=== PATIENT | female | born 1950 | race Caucasian/White ===

== ENCOUNTER → 2016-07-27 | Outpatient (CLI) | payer OTHER ==
[~2016-07-27] MED LIST: CHOL100010 PO; DNSIS60 INJ; GABA-113 PO; LAMO200T38 PO; MULT-506 PO; SERT-234 PO; VITAMIN B12 INJ
[2016-07-27 10:59] LABS: BASO % 0.5 %; BASO ABS # 0.03 K/uL (0-0.2); COMPLETE YES; EOS % 2.1 %; HEMATOCRIT 38.6 % (37-47); IG% 0.6 %; LYMPH % 19.3 %; LYMPH ABS # 1.28 K/uL (1.2-3.4); MEAN CELL VOLUME 88.1 fL (80-100); MEAN CORPUSCULAR HEMOGLOBIN 30.1 pg (25-34); MEAN CORPUSCULAR HGB CONC 34.2 g/dl (32-36); MEAN PLATELET VOLUME 9.9 fL (7.4-10.4); MONO % 8.4 %; NEUT % 69.1 %; PLATELET COUNT 267 K/uL (130-400); RED BLOOD COUNT 4.38 M/uL (4.2-5.4); WHITE BLOOD COUNT 6.64 K/uL (4.8-10.8)
[2016-07-27 11:26] LABS: ALT/SGPT 19 U/L (12-78); BLOOD UREA NITROGEN 13 mg/dl (7-18); BUN/CREATININE RATIO 18.9 (10-20); CALCIUM 9.1 mg/dl (8.5-10.1); CARBON DIOXIDE 25 mmol/L (21-32); CHLORIDE 109 mmol/L (98-107); GLUCOSE 64 mg/dl (70-99); MAGNESIUM 2.1 mg/dl (1.8-2.4); POTASSIUM 3.6 mmol/L (3.5-5.1); SODIUM 144 mmol/L (136-145)
[2016-07-27 11:37] LABS: ALB/GLOB RATIO 1.1 (0.9-2); ALKALINE PHOSPHATASE 64 U/L (45-117); AST/SGOT 13 U/L (15-37); PHOSPHORUS 3.2 mg/dl (2.5-4.9)
[2016-08-01 02:20] LABS: ACETYLCHOLINE RECEP MODULATING 16; ACETYLCHOLINE RECEPT BLOCKING <15 % inhibit (<15); RECEPTOR BINDING AB <0.30 nmol/L (<=0.30)
== END | disposition home or self-care (01) ==
LOC: C.LAB1850 09:48
PROVIDERS: ATTEND Psychiatry & Neurology Neurology
DX: M62.81 Muscle weakness (generalized) (principal)

== ENCOUNTER → 2016-07-27 | Outpatient (CLI) | payer OTHER ==
[~2016-07-27] MED LIST changes: +GADAVIST IV PRN
--- NOTE | 2016-07-27 11:53 | DIAGNOSTIC IMAGING REPORT ---
MRI OF THE BRAIN COMBO CLINICAL HISTORY: Headache. Blurred vision. COMPARISON STUDY: No priors. TECHNIQUE: MRI of the brain was performed utilizing various T1 and T2-weighted sequences in the axial, sagittal, and coronal planes. Contrast-enhanced sequences were acquired following the administration of 8 cc of Gadavist. FINDINGS: Brain parenchyma: There is mild age-related involutional change noting scattered tiny foci of microangiopathic disease. The brain parenchyma is otherwise normal in appearance. There is no hemorrhage or mass effect. There is no restricted diffusion to suggest acute ischemia. No enhancing mass lesion is identified on the postcontrast images. Golden-white matter differentiation is preserved. No extra-axial fluid collection is seen. The cerebellar tonsils are normal in configuration. Ventricles, sulci, and cisterns: Prominent secondary to involutional change. Pituitary and sella: Unremarkable. Intracranial vasculature: Normal flow voids are maintained at the skull base. Orbits: The bony orbits are grossly intact. Orbital contents are normal in appearance noting bilateral ocular lens implants. Sinuses and mastoids: Clear. Calvarium: Unremarkable. Cervical cord: Partially visualized cervical spinal cord is normal in morphology and signal intensity. IMPRESSION: No acute intracranial abnormality. Electronically signed by: Yaniv Hutchins M.D. 07/27/2016 11:52 AM Dictated Date/Time: 07/27/2016 11:47 AM
--- NOTE | 2016-08-08 11:10 | CODING QUERY MEDICAL NECESSITY ---
SUPPORTING DIAGNOSIS NEEDED A supporting diagnosis is required for the test/procedure performed on this patient in order for us to be reimbursed by the patient's insurance. Please provide a supporting diagnosis for the following test/procedure listed below next to the test name along with your signature. *If there is no additional diagnosis for this patient that would support the following test/procedure please document that below next to the test/procedure. Test(s)/Procedure(s) that require a supporting diagnosis: DOS 07/27 * Vitamin D DIAGNOSIS: * Vitamin B12 DIAGNOSIS: Provider Signature: Date: Thank you Maryse Barnard Health Information Management Once completed, please kindly fax back to [phone] For questions please call [phone]
== END | disposition home or self-care (01) ==
LOC: C.MRI 10:15
PROVIDERS: ATTEND Psychiatry & Neurology Neurology
DX: H53.8 Other visual disturbances (principal); R51 Headache; M62.81 Muscle weakness (generalized); E55.9 Vitamin D deficiency, unspecified; G62.9 Polyneuropathy, unspecified; R20.2 Paresthesia of skin

== ENCOUNTER → 2016-12-18 | Outpatient (CLI) | payer OTHER ==
[~2016-12-18] VITALS: Ht 172.7 cm; Wt 71.0 kg
[~2016-12-18] MED LIST changes: -GADAVIST IV PRN
[2016-12-18 16:13] VITALS: BP 117/76; PULSE 71; Ht 172.7 cm; Wt 71.0 kg
== END | disposition home or self-care (01) ==
LOC: C.NEUR 13:45
PROVIDERS: ATTEND Internal Medicine Pulmonary Disease
DX: R06.83 Snoring (principal); R53.83 Other fatigue

== ENCOUNTER → 2016-12-20 | Outpatient (CLI) | payer OTHER ==
--- NOTE | 2016-12-21 06:45 | PAP/PSG TECHNICIAN REPORT ---
[facility] Geological Technician Polysomnogram Report Study name: None Report date: 12/21/2016 Study date: 12/20/2016 Referring Physician: DR. BENÍTEZ Name: ANGELES DORMAN Interpreting Physician: Ramo Benítez M.D. Date of : 1950 Geological Technician: HERNAN Kaiser. Sex: Female Age: 66 StudyType: PSG Weight: 182 lbs Height: 66 years, Height 5' 8" Neck Circum:14.5inches BMI: 27.67 Medications: Gabapentin 600 mg, Ibuprofen 800 mg, Lamotrigine 200 mg, multi vits, Vit D3 1000 unit, Prolia 60 mg/ml, Sertraline 100 mg, Vit B-12 1000 mcg/ml, Vit D3 45895 unit Patient History Study started on room air with no ETCO2 monitoring in room #8. 66 yr old female here tonight for a diagnostic psg. She complains of very loud snoring and EDS. She has been having headaches lately. Tonight, she has edema in her right foot, ankle and lower leg. Her ESS=10/24. Neck circ=14.5 inches. Parameters Monitored NPSG: E1-M2, E2-M1, Fp1-M2, Fp2-M1, F3-M2, F4-M2, F4-M1, C3-M2, C4-M2, C4-M1, O1-M2, O2-M2, O2-M1, T3-M2, T4-M1, P3-M2, P4-M1, CHIN1, CHIN2, HR, EKG, Legs, PFLOW, SNOR, FLOW, CFLOW, Tidal Volume, THOR, ABDO, SpO2, PLTH, CPRESS, ETCO2 Wave, ETCO2, pH Sleep Architecture Sleep Stages Time at Lights Off 10:04:22 PM STAGES Time (min.) TST (%) Time at Lights On 5:35:22 AM Wake 80.0 -- Total Recording Time (TRT) 451.00 min. N1 11.5 3 Total Sleep Period (TSP) 383.5 min. N2 206.0 56 Total Sleep Time (TST) 371.0min. N3 64.0 17 Awake Time 80.0 min. REM 89.5 24 Wake after Sleep Onset 12.5 min. Sleep Efficiency (SE) 82 % Sleep Onset Latency (JC) 67.5 min. Number of Stage 1 Shifts None Awakenings 10 Stage Changes 56 Number of REM periods 3 REM 89.5 24 REM Latency 96.0 min. NREM 281.5 76 Body Position Analysis Supine Right Left Side Prone Vertical Total Sleep Time (min.) 310.7 0.0 133.1 133.11 0.0 0.0 Total Sleep Time (%) 64% 0% 36% 36 0% N/A% Total Sleep Time REM (min.) 89.5 0.0 0.0 None 0.0 0.0 Total Sleep Time NREM (min.) 148.4 0.0 133.1 None 0.0 0.0 Intermittent Wake (min.) 72.8 0.0 7.2 None 0.0 0.0 Total Sleep Period (%) 63% None None None None None Arousals Myoclonus (PLM) * Events Count Index Events Count Index Spontaneous 11 2 Events Awake (PLMW) 63 47.3 Respiratory 1 0.2 Events Asleep w/ Arousal (PLMA) 4 0.6 PLM 4 1 Events Asleep w/o Arousal (PLMS) 268 43.3 Snoring 2 0 Total Asleep 272 44.0 Total 18 3 Total 335 45 Respiratory Analysis * CA OA MA CH H RERA Total Count 1 2 0 0 8 0 11 Index 0.2 0.3 0.0 0 1.3 0 1.8 Mean Duration 10.9 29.0 0.0 0.00 18.9 0.0 20.0 Longest Duration 10.9 39.8 0.0 0.00 0.0 0.0 39.8 Respiratory Event Summary Total Supine ~Supine Right Left Prone REM NREM Apneas Count 3 2 1 N/A 1 N/A 2 1 Index 0.5 1 0 N/A 0.5 N/A 1 0 Hypopneas (4% Desat) Count 8 6 2 N/A 2 N/A 0 8 Index 1.3 1.5 1 N/A 0.9 N/A 0.0 1.7 Apneas & All Hypopneas Count 11 8 3 N/A 3 N/A 2 9 Index 1.8 2 1 N/A 1 N/A 1.3 1.9 Respiratory Events (Police Clerk+All Hyp+RERA) Count 11 8 3 N/A 3 N/A 2 9 Index 1.8 2 1 N/A 1.4 N/A 1.3 1.9 Respiratory Related Arousal Count 1 8 1 N/A 1 N/A 0 1 Index 0.2 0 0 N/A 0 N/A 0 0 Snoring Analysis Supine Right Left Prone REM NREM Total Snore duration 8.3 min Snores count 73 N/A 284 N/A 15 342 357 Snore mean duration 1.4 Sec Snores index 18 N/A 128 N/A 10.1 72.9 57.7 TST with snoring (%) 2.2% Desaturation Event Summary: Minimum %SpO2 Event Count Mean/Min/Max Duration(sec.) Desaturation Index % Time In Bed > 90 15 26.1 / 6.8 / 58.8 4.6 43.8 86 - 90 7 32.2 / 10.0 / 57.5 1.7 56.1 81 - 85 0 N/A 0.0 0.1 76 - 80 0 N/A 0.0 0.0 71 - 75 0 N/A 0.0 0.0 66 - 70 0 N/A 0.0 0.0 61 - 65 0 N/A 0.0 0.0 56 - 60 0 N/A 0.0 0.0 51 - 55 0 N/A 0.0 0.0 < 50 0 N/A 0.0 0.0 Total REM NREM Awake <50% 0.0 min. 0.0 min. 0.0 min. 0.0 min. 51 - 60% 0.0 min. 0.0 min. 0.0 min. 0.0 min. 61 - 70% 0.0 min. 0.0 min. 0.0 min. 0.0 min. 71 - 80% 0.0 min. 0.0 min. 0.0 min. 0.0 min. 81 - 90% 251.1 min. 54.7 min. 174.0 min. 22.3 min. 91 - 100% 195.9 min. 34.8 min. 104.6 min. 56.5 min. Average 90 90 90 91 Minimum SpO2 84 84 85 86 Desaturation Event Index 2.7 0.7 2.6 5.3 # Desat. Events below 89% 9 1 7 1 Time(%) with Saturation below 89% 22.6 2.3 19.6 0.6 Time(min.) with Saturation below 89% 101.0 10.4 87.7 2.9 Time (mins) REM (mins) NREM (mins) % of TST SpO2 Below 90% 11 1 N10 41.2 SpO2 Below 88% 4 0 0 14 Heart Rate Analysis Min (bpm) Max (bpm) Average (bpm) Awake 50 145 64 NREM 58 127 66 REM 59 74 66 Overall 58 127 66 Supplemental O2 Values Minimum O2 level: None Value Start Time End Time Geological Technician Comments Mrs. Dorman slept in the left and supine positions. No cardiac arrhythmia noted. PLM's were noted. No bruxism noted. Snoring was noted and scored as a 2 on a scale of 1 through 5. (0=no snoring, 5=snoring loud enough to be heard through a closed door or down the [address] way). She did not use the restroom during the night. She stated that she slept about the same as usual. The final report will be interpreted and signed by a sleep physician. The completed physician report will then be placed in the patient medical record. Therapy (cm H2O) 0 TIB (min.) 451.0 TST (min.) 371.0 Sleep Onset (min.) 67.5 REM Onset From Sleep (min.) 96.0 Sleep Efficiency % 82 Wakefulness (%) 18 Wakefulness (min.) 80.0 NREM 1 (%) 3 NREM 1 (min.) 11.5 NREM 2 (%) 56 NREM 2 (min.) 206.0 NREM 3 (%) 17 NREM 3 (min.) 64.0 REM (%) 24 REM (min.) 89.5 # Arousals 18 Arousal Index 3 # Snore 357 Snore Index 57.7 AHI 1.8 AHI Supine 2 AHI Non-Supine 1 NREM AHI 1.9 REM AHI 1.3 RDI 1.8 # Obstructive Apnea 2 # Central Apnea 1 # Mixed Apnea 0 # Hypopneas 8 RERAs 0 Total Respiratory Events 15 Time Below SpO2 89% (min.) 98.1 Mean NREM SpO2 (%) 90 Mean REM SpO2 (%) 90 Mean Sleep SpO2 (%) 90 Min NREM SpO2 (%) 85 Min REM SpO2 (%) 84 Position Supine (min.) 310.7 Position Non-supine (min.) 133.1 LM Index Sleep 44.0 LM Index NREM 45.8 LM Index REM 38.2 Mean Heart Rate (bpm) 66 Min Heart Rate (bpm) 58
--- NOTE | 2016-12-24 16:14 | Sleep Study ---
Sleep Study Report Date of Service: December 20, 2016 Sleep Study Report Clinical data: The patient is a 66-year-old female with a BMI of 27.67 with a history of loud snoring and excessive daytime sleepiness. She has been evaluated by neurology for headaches. Her Lucas sleepiness score is 10/24. Sleep architecture: Total sleep period was 383.5 minutes. Total sleep time was 371 minutes divided between 281.5 minutes of non-REM sleep and 89.5 minutes of REM sleep. Sleep onset latency was delayed to 67.5 minutes. REM latency was 96 minutes. Sleep efficiency was 83 percent. Wake after sleep onset was 12.5 minutes. Sleep consisted of stage N1 3 percent, stage N2 56 percent, stage N3 17 percent, and REM 24 percent. Arousal data: 18 arousals were recorded for an index of 3 per hour. PLM data: 272 limb movements during sleep were noted for an index of 44 per hour with an arousal index of 0.6 per hour Respiratory data: There was no evidence of significant sleep apnea seen. The AHI was 1.8. There was 1 central and 2 obstructive apneic episodes. The longest apnea episode was 39.8 seconds. There were 8 hypopneas with a mean duration of 18.9 seconds. Oximetry data: No significant nocturnal hypoxemia was seen. Oxygen eloise was 84 percent during REM. Mean saturation was 90 percent. Time below 88 percent was 4 minutes. EKG: Heart rates ranged from 58 to 127 beats per minute. No arrhythmias were noted. Assembler Surgical Garment's comments: The patient slept in the left and supine positions. Snoring was mild to moderate, rated 2 on a scale of 1 through 5. She did not awaken to use the restroom. Impression: 1. No evidence of clinically significant sleep apnea/hypopnea or sustained nocturnal hypoxemia. 2. Moderately elevated limb movements during sleep possibly consistent with PLMD. Recommendations: The patient should be evaluated for possible reversible causes of PLMD such as iron deficiency with a ferritin level. There is nothing to suggest that CPAP or an oral appliance are needed at this time. Copies To 1: Hilda Marie D.O.; Frederick Hollingsworth M.D.
== END | disposition home or self-care (01) ==
LOC: C.NEUR 21:00
PROVIDERS: ATTEND Internal Medicine Pulmonary Disease
DX: R53.83 Other fatigue (principal)

== ENCOUNTER → 2017-01-04 | Outpatient (CLI) | payer OTHER ==
[2017-01-08 22:32] LABS: VIT E ALPHA-TOCOPHEROL 10.2 mg/L (5.7-19.9); VIT E BETA&GAMMA-TOCOPHEROL 2.6 mg/L (<=4.3)
== END | disposition home or self-care (01) ==
LOC: C.LAB1850 09:38
PROVIDERS: ATTEND Internal Medicine Rheumatology
DX: M62.81 Muscle weakness (generalized) (principal); E53.8 Deficiency of other specified B group vitamins; E55.9 Vitamin D deficiency, unspecified; M54.5 Low back pain

== ENCOUNTER → 2017-01-22 | Outpatient (CLI) | payer OTHER ==
[~2017-01-22] VITALS: Ht 172.7 cm; Wt 81.5 kg
[2017-01-22 14:13] VITALS: BP 97/64; PULSE 80; Ht 172.7 cm; Wt 81.5 kg
== END | disposition home or self-care (01) ==
LOC: C.NEUR 11:50
PROVIDERS: ATTEND Physician Assistant Medical
DX: G47.61 Periodic limb movement disorder (principal); Z79.890 Hormone replacement therapy; R53.83 Other fatigue; I95.9 Hypotension, unspecified

== ENCOUNTER 2018-01-17 19:59 | Inpatient (IN) | payer OTHER ==
[~2018-01-17] VITALS: Ht 172.7 cm; Wt 82.7 kg
[~2018-01-17 19:59] MED LIST changes: +LAMO200T35 PO; -LAMO200T38 PO
[2018-01-17 22:10] VITALS: O2SAT 95; Ht 172.7 cm; Wt 82.7 kg
[2018-01-17 22:34] VITALS: BP 119/74; PULSE 64; TEMP 36.9; O2SAT 95
[2018-01-17 23:12] VITALS: BP 108/58; PULSE 69; TEMP 36.9; O2SAT 96
[2018-01-17] MEDS ORDERED: POLYETHYLENE (MIRALAX) 17 GM PACK PO PRN (23:15)
[2018-01-17] MEDS ORDERED: ACETAMINOPHEN 325 MG TAB PO PRN (23:15)
[2018-01-17] MEDS ORDERED: ALUMINUM/MAGNESIUM/SIMETH (MAALOX MAX) 30 ML UDC PO PRN (23:15)
[2018-01-17] MEDS ORDERED: ONDANSETRON INJ 2 MG/ML 2 ML VIAL IV PRN (23:15)
[2018-01-17] MEDS ORDERED: HYDROmorphone INJ 0.5 MG/0.5 ML SYR IV PRN (23:15)
[2018-01-17] MEDS ORDERED: ZOLPIDEM TARTRATE 5 MG TAB PO PRN (23:15)
[2018-01-17] MEDS ORDERED: MAGNESIUM HYDROXIDE SUSP 30 ML UDC PO PRN (23:15)
[2018-01-17] MEDS ORDERED: SODIUM CHLORIDE 0.9% 1000ML 1,000 ML IV SCH (23:30)
[2018-01-17] MEDS ORDERED: HYDROmorphone INJ 0.5 MG/0.5 ML SYR ONE (23:38)
--- NOTE | 2018-01-17 23:38 | History and Physical ---
History & Physical Date & Time of Service: Jan 17, 2018 at 23:17 Chief Complaint: Ischial Fracture Primary Care Physician: Frederick Hollingsworth M.D. History of Present Illness Source: patient, hospital records 67F with a PMHx of depression, bilateral knee replacement, pelvic fx 6 month ago (healed at last ortho visit one month ago), resolved ovarian CA presents with slip today at 1230 in the afternoon when she was in her bathroom. She states that she did the splits. With the assistance of her partner who she lives with she was driven to [facility]. She states that the pelvic pain she experienced in the back of the car was unbearable. She reports X-rays and a CT was done at [place] and she was told that she had a pelvic fracture. She reports having a pelvic fracture 6 months ago that completely healed - that's what she was told at her last ortho appointment. She states that she has seen [facility] in the past and knows Dr. Mckinney very well. Pt states that she is in 8/10 pain - localized to the left pelvis. She is hungry and thirsty as well. Pt does not want to skin her dose of Lamictal or Sertraline. Past Medical/Surgical History Medical Problems: (1) Lumbar stenosis (2) Pelvic fracture Family History Noncontributory Social History Smoking Status: Never Smoker Smokeless Tobacco Use: No Alcohol Use: none Drug Use: none Occupational Status: retired Immunizations History of Influenza Vaccine: Unknown History of Tetanus Vaccine?: Unknown History of Pneumococcal: Unknown History of Hepatitis B Vaccine: Unknown Allergies Coded Allergies: NO KNOWN DRUG ALLERGIES (Unverified Allergy, Unknown, NONE, 01/07/14) Home Medications Scheduled Cholecalciferol (Vitamin D), 1,000 INTER.UNIT PO DAILY Denosumab (Prolia), 1 DOSE INJ Q6M Gabapentin (Neurontin), 400 MG PO TID Lamotrigine (Lamictal), 200 MG PO DAILY Multivitamin (Multivitamin), 1 TAB PO DAILY Sertraline (Zoloft), 100 MG PO DAILY [Vitamin B12], 1 DOSE INJ MONTHLY Scheduled PRN Ibuprofen (Ibuprofen), 800 MG PO TID PRN for Pain Tramadol HCl (Tramadol HCl), 50 MG PO Q4H PRN for Pain Review of Systems Constitutional: No fever, No chills Respiratory: No cough, No sputum, No wheezing, No shortness of breath Cardiovascular: No chest pain Abdomen: No pain, No nausea, No vomiting, No diarrhea, No constipation Musculoskeletal: No joint pain Genitourinary - Female: No dysuria Endocrine: No fatigue Physical Exam Vital Signs Date Time Temp Pulse Resp B/P (MAP) Pulse Ox O2 Delivery O2 Flow Rate FiO2 01/17/18 22:34 36.9 64 16 119/74 (89) 95 Nasal Cannula 3.0 General Appearance: WD/WN, no apparent distress Head: normocephalic, atraumatic Eyes: normal inspection, PERRL, EOMI Neck: supple Respiratory/Chest: chest non-tender, lungs clear, no respiratory distress, + pertinent finding (deep inspiration produces pain in the left hip) Cardiovascular: regular rate, rhythm, no edema, no gallop, no JVD, no murmur, normal peripheral pulses, + pertinent finding (excellent DP pulses in the LE) Abdomen/GI: normal bowel sounds, soft, no pulsatile mass, + pertinent finding ( There is moderate tenderness when pressing on the left abdomen - pt states the pain is in her hip. ) Extremities/Musculoskelatal: normal inspection, no calf tenderness, no pedal edema, + pertinent finding (Pt can wiggle toes, pushing down with the left foot produces pain, no pain on dorsiflexion of left foot, pt defers the rest of the LE MSK exam because of significant pain so I cannot asses hip flexion or extension or knee flexion or extension. There is no obvious trauma to the pelvis on inspection. 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 ) Skin: normal color Diagnostics Diagnostic Radiology Images being uploaded. Impression Assessment and Plan 67F with a PMHx of depression, bilateral knee replacements, pelvic fx 6 month ago (healed at last ortho visit one month ago), resolved ovarian CA presents with slip today in her bathroom. She is transferred from [place] where X-rays and CT were performed. Ortho (Dr. Mckinney) consulted. 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 Pt deferred pelvic and hip exam due to pain. Her lower extremities appear vascularly intact. Will wait for imaging to be uploaded rather than re-image. Pt states she is in 8/10 pain - will add on Dilauded 0.5mg Q3H PRN. Pt is hungry, will make NPO at midnight except meds. +NSS @60mls/hr. Will get CBC, BMP and ABO RH Type. No significant cardiac history. Unsure if other blood work is needed for preop. Consult Ortho - Dr. Twin Mckinney. Depression Will continue pt's Lamictal and Sertraline. Neuropathy from her Ovarian cancer s/p LN resection c/w Neurontin 400mg TID (med rec is inaccurate on intake) DVT Proph: SCDs if she can tolerate. Diet: NPO after midnight except meds with IVF. Dispo: Admit, Med Surg. FULL CODE Attending addendum: I have physically seen this patient, have supervised the medical residents activities, and agree with the H&P unless as otherwise noted. Assessment and Plan: Pelvic fracture involving the ischial bone-- Admit to nonmonitored bed. Order routine laboratories. Consult PT/OT/orthopedics Dr. Mckinney. Pain control including Dilaudid 0.5 IV every 3 hours as needed the patient may be able to ambulate to promote healing. Depression/neuropathy-- Continue Lamictal, sertraline and Neurontin as outpatient. Remainder of orders and notations as above. Advanced Directives Existing Living Will: No Existing Power of Dental Financial Coordinator: No Resuscitation Status VTE Prophylaxis Will order VTE Prophylaxis: Yes Resident Involvement: Resident Care Provided Care Provided: Adult Hospital Medicine
[2018-01-17 23:54] LABS: BASO % 0.5 %; BASO ABS # 0.03 K/uL (0-0.2); EOS % 1.4 %; EOS ABS # 0.09 K/uL (0-0.5); HEMATOCRIT 33.8 % (37-47); HEMOGLOBIN 11.3 g/dL (12.0-16.0); IG# 0.03 K/uL (0.00-0.02); LYMPH % 19.2 %; LYMPH ABS # 1.25 K/uL (1.2-3.4); MEAN CELL VOLUME 89.9 fL (80-100); MEAN CORPUSCULAR HEMOGLOBIN 30.1 pg (25-34); MEAN CORPUSCULAR HGB CONC 33.4 g/dl (32-36); MONO % 9.5 %; MONO ABS # 0.62 K/uL (0.11-0.59); NEUT % 68.9 %; NEUT ABS # 4.48 K/uL (1.4-6.5); PLATELET COUNT 194 K/uL (130-400); RED CELL DISTRIBUTION WIDTH CV 13.4 % (11.5-14.5); RED CELL DISTRIBUTION WIDTH SD 43.5 fL (36.4-46.3)
[2018-01-18 00:24] LABS: CALCIUM 8.2 mg/dl (8.5-10.1); CREATININE 0.78 mg/dl (0.60-1.20); POTASSIUM 3.7 mmol/L (3.5-5.1)
[2018-01-18 08:00] VITALS: BP 114/60; PULSE 72; TEMP 37; O2SAT 96
[2018-01-18] MEDS: GABAPENTIN 400 MG CAP PO SCH ×2 (08:34→13:04)
[2018-01-18] MEDS ORDERED: SERTRALINE HCL 100 MG TAB PO SCH (09:00)
--- NOTE | 2018-01-18 09:50 | Orthopedic Consultation ---
Orthopedic Consultation Date of Consultation: Jan 18, 2018. Attending Physician: Alan Sagastume M.D. Reason for Consultation: Pelvis fracture History of Present Illness The patient is a 67-year-old female who presents for evaluation secondary to mechanical fall sustained 1 day prior on 01/17/2018 when she was cleaning in her bathroom and subsequently slipped on the floor. Seen at [place] emergency department and diagnosed with left ischial tuberosity and inferior pubic rami fracture. She was subsequently transferred to [facility] for further evaluation and treatment. Patient denies numbness and tingling in her left lower extremity. Denies hitting head denies loss of consciousness. Patient denies any associated injuries or pains. Her pain is well controlled at rest. Social History Smoking Status: Never Smoker Allergies Coded Allergies: NO KNOWN DRUG ALLERGIES (Unverified Allergy, Unknown, NONE, 01/07/14) Home Medications Scheduled Cholecalciferol (Vitamin D), 1,000 INTER.UNIT PO DAILY Denosumab (Prolia), 1 DOSE INJ Q6M Gabapentin (Neurontin), 300 MG PO BID Lamotrigine (Lamictal), 200 MG PO DAILY Multivitamin (Multivitamin), 1 TAB PO DAILY Sertraline (Zoloft), 100 MG PO DAILY [Vitamin B12], 1 DOSE INJ MONTHLY Current Inpatient Medications Current Inpatient Medications Medications (Trade) Dose Ordered Sig/Neel Route Start Time Stop Time Status Last Admin Dose Admin Acetaminophen (Tylenol Tab) 650 mg Q4H PRN PO 01/17/18 23:15 02/16/18 23:14 Al Hydrox/Mg Hydrox/Simethicone (Maalox Max Susp) 15 ml Q4H PRN PO 01/17/18 23:15 02/16/18 23:14 Magnesium Hydroxide (Milk Of Magnesia Susp) 30 ml Q6H PRN PO 01/17/18 23:15 02/16/18 23:14 Polyethylene (Miralax Powder Packet) 17 gm DAILY PRN PO 01/17/18 23:15 02/16/18 23:14 Zolpidem Tartrate (Ambien Tab) 5 mg HSZ PRN PO 01/17/18 23:15 02/16/18 23:14 Ondansetron HCl (Zofran Inj) 4 mg Q6H PRN IV 8/10/18 23:15 02/16/18 23:14 Lamotrigine (Lamictal Tab) 200 mg DAILY PO 01/18/18 09:00 02/17/18 08:59 01/18/18 08:34 200 MG Sertraline HCl (Zoloft Tab) 100 mg DAILY PO 01/18/18 09:00 02/17/18 08:59 01/18/18 08:34 100 MG Gabapentin (Neurontin Cap) 400 mg TID PO 01/18/18 09:00 02/17/18 08:59 01/18/18 08:34 400 MG Hydromorphone HCl (Dilaudid Inj) 0.5 mg Q3H PRN IV 01/17/18 23:15 01/31/18 23:14 Sodium Chloride 1,000 ml @ 60 mls/hr [id number] IV 01/17/18 23:30 02/16/18 23:29 01/18/18 00:29 60 MLS/HR Review of Systems A complete 10-point Review of Systems was discussed with the patient, with pertinent positives and negatives listed in the History of Present Illness. All remaining Review of Systems questions can be considered negative unless otherwise specified. Physical Exam Date Time Temp Pulse Resp B/P (MAP) Pulse Ox O2 Delivery O2 Flow Rate FiO2 01/18/18 08:00 37.0 72 24 114/60 (78) 96 Nasal Cannula 3.0 01/18/18 07:25 Nasal Cannula 3.0 01/17/18 23:12 36.9 69 18 108/58 (75) 96 Nasal Cannula 3.0 01/17/18 22:34 36.9 64 16 119/74 (89) 95 Nasal Cannula 3.0 01/17/18 22:10 95 Nasal Cannula 3.0 No apparent distress, alert and oriented 3 Left lower extremity is neurovascularly sensory intact, +2 dorsalis pedis pulse , capillary refill less than 2 seconds, tenderness to palpation to the ischial tuberosity. Skin intact. No pain to palpation or range of motion of left knee , left ankle. Logroll negative. Patient able to perform straight leg raise with minimal discomfort. Compartments soft nontender. Laboratory Results Last 24 Hours Test 01/17/18 23:34 White Blood Count 6.50 K/uL Red Blood Count 3.76 M/uL Hemoglobin 11.3 g/dL Hematocrit 33.8 % Mean Corpuscular Volume 89.9 fL Mean Corpuscular Hemoglobin 30.1 pg Mean Corpuscular Hemoglobin Concent 33.4 g/dl Platelet Count 194 K/uL Mean Platelet Volume 10.0 fL Neutrophils (%) (Auto) 68.9 % Lymphocytes (%) (Auto) 19.2 % Monocytes (%) (Auto) 9.5 % Eosinophils (%) (Auto) 1.4 % Basophils (%) (Auto) 0.5 % Neutrophils # (Auto) 4.48 K/uL Lymphocytes # (Auto) 1.25 K/uL Monocytes # (Auto) 0.62 K/uL Eosinophils # (Auto) 0.09 K/uL Basophils # (Auto) 0.03 K/uL RDW Standard Deviation 43.5 fL RDW Coefficient of Variation 13.4 % Immature Granulocyte % (Auto) 0.5 % Immature Granulocyte # (Auto) 0.03 K/uL Sodium Level 140 mmol/L Potassium Level 3.7 mmol/L Chloride Level 108 mmol/L Carbon Dioxide Level 26 mmol/L Anion Gap 6.0 mmol/L Blood Urea Nitrogen 15 mg/dl Creatinine 0.78 mg/dl Est Creatinine Clear Calc Drug Dose 81.1 ml/min Estimated GFR () 92.5 Estimated GFR (Non- 79.8 BUN/Creatinine Ratio 19.4 Random Glucose 130 mg/dl Calcium Level 8.2 mg/dl Assessment & Plan Left comminuted ischial tuberosity fracture, inferior pubic rami fracture The patient's injuries are significant however do not require surgical intervention at this time. I personally reviewed x-rays and CT scan which were performed at [facility] emergency department which demonstrated a comminuted left ischial tuberosity fracture with a associated inferior pubic rami fracture. There is old healing fractures of the right sacrum and right pubic rami. The patient may weight-bear as she tolerates, ambulate with assistive devices such as a walker and pain control. Unfortunately the patient has had a history of repeated falls and pelvic fractures, will likely require rehab placement pending physical therapy examination for a short period of time to aid in improved strength, gait training and ADLs. We will plan to see the patient in 2 weeks for follow-up and repeat imaging. Thank you for the consultation
[2018-01-18] MEDS ORDERED: TRAMADOL HCL 50 MG TAB PO PRN (11:00)
[2018-01-18] MEDS ORDERED: IBUPROFEN 800 MG TAB PO PRN (11:00)
[2018-01-18 11:54] VITALS: BP 112/68; PULSE 70; TEMP 37.1; O2SAT 95
[2018-01-18 15:00] VITALS: BP 116/68; PULSE 78; TEMP 36.8; O2SAT 95
[2018-01-18] MEDS ORDERED: MTR800 PO (15:03)
[2018-01-18] MEDS ORDERED: ULT50X PO (15:04)
--- NOTE | 2018-01-18 15:18 | Discharge Instructions ---
Discharge Instructions Date of Service Jan 18, 2018. Admission Reason for Admission: Ischial Fracture Discharge Discharge Diagnosis / Problem: Pelvic Fracture Discharge Goals Goal(s): Decrease discomfort, Improve function, Increase independence Activity Recommendations Activity Limitations: as noted below Lifting Limitations: gradually increase as tolerated Exercise/Sports Limitations: as tolerated (no vigorous activity) . Instructions / Follow-Up Instructions / Follow-Up Left Ischial Tuberosity Fracture/Inferior Pubic Rami Fracture - You may bear weight as tolerated and recommend to use a walker to help with balance and take some pressure of this area. - Would recommend to take it easy over the next couple weeks until you have follow-up with the orthopedic doctors. - Will provide a prescription for Ibuprofen as needed and Tramadol for more severe pain. Do not drive when taking Tramadol as you can be sleepy/drowsy - Dr. Mckinney would like to see you in 2 weeks for follow-up imaging and evaluation. They should call you but if you do not get a call in a couple days please call their office. Current Hospital Diet Patient's current hospital diet: Regular Diet Discharge Diet Recommended Diet: Regular Diet Pending Studies Studies pending at discharge: no Medical Emergencies . Who to Call and When: Medical Emergencies: If at any time you feel your situation is an emergency, please call 911 immediately. . Non-Emergent Contact Non-Emergency issues call your: Primary Care Provider Call Non-Emergent contact if: you have a fever, your pain is concerning you, you have any medication questions . . "Provider Documentation" section prepared by Michelle Carter. . [place] Drug Monitoring Program Search Results: patient reviewed within database, no issues identified
[2018-01-18 15:37] VITALS: BP 116/68; PULSE 78; O2SAT 96
[2018-01-18 15:52] VITALS: BP 116/68; PULSE 78; TEMP 36.8; O2SAT 96
--- NOTE | 2018-01-18 18:02 | Discharge Summary ---
Discharge Summary Date of Service Jan 18, 2018. Discharge Summary Admission Date: Jan 17, 2018 at 22:31 Discharge Date: Jan 18, 2018 Discharge Disposition: Home Principal Diagnosis: L Comminuted Ischial Tuberosity Fx and Inferior Pubic Rami Fx Problems/Secondary Diagnoses: 1. Depression 2. B/L TKA 3. R Pelvic Fracture (6 months ago) 4. Ovarian CA (Remission/Resolved) 5. Spinal Stenosis S/P Decompression Consultations: 1. Orthopedics - Dr. Mckinney Medication Reconciliation New Medications: Ibuprofen (Ibuprofen) 800 Mg Tab 800 MG PO TID PRN for Pain for 14 Days, #42 TAB Tramadol HCl (Tramadol HCl) 50 Mg Tab 50 MG PO Q4H PRN for Pain, #60 TAB 0 Refills Continued Medications: Cholecalciferol (Vitamin D) 1,000 Inter.unit Tab 1000 INTER.UNIT PO DAILY, TAB Denosumab (Prolia) 60 Mg/1 Ml Inj 1 DOSE INJ Q6M Gabapentin (Neurontin) 300 Mg Cap 400 MG PO TID, CAP Lamotrigine (Lamictal) 200 Mg Tab 200 MG PO DAILY, TAB Multivitamin (Multivitamin) Tab 1 TAB PO DAILY, TAB Sertraline (Zoloft) 100 Mg Tab 100 MG PO DAILY, TAB [Vitamin B12] () 1 DOSE INJ MONTHLY Discharge Exam Review of Systems: Constitutional: No fever, No chills Respiratory: No cough, No shortness of breath Cardiovascular: No chest pain Abdomen: No pain, No nausea, No vomiting, No diarrhea, No constipation Musculoskeletal: + joint pain (L hip - improving but worse with movement), No swelling Genitourinary - Female: No dysuria Neurologic: + numbness/tingling (chronic but no new involvement) Hematologic / Lymphatic: No abnormal bleeding/bruising Physical Exam: General Appearance: WD/WN, no apparent distress Eyes: sclerae normal ENT: hearing grossly normal Neck: supple, no JVD, trachea midline Respiratory/Chest: lungs clear, normal breath sounds, no respiratory distress, no accessory muscle use Cardiovascular: regular rate, rhythm, no gallop, no murmur Abdomen / GI: normal bowel sounds, non tender, soft Extremities: no calf tenderness, normal capillary refill, no pedal edema Neurologic/Psychiatric: no motor/sensory deficits, alert, normal mood/affect , oriented x 3 Skin: normal color, warm/dry Hospital Course ADMISSION: 67F with a PMHx of depression, bilateral knee replacement, pelvic fx 6 month ago (healed at last ortho visit one month ago), resolved ovarian CA presents with slip today at 1230 in the afternoon when she was in her bathroom. She states that she did the splits. With the assistance of her partner who she lives with she was driven to [facility]. She states that the pelvic pain she experienced in the back of the car was unbearable. She reports X-rays and a CT was done at [place] and she was told that she had a pelvic fracture. She reports having a pelvic fracture 6 months ago that completely healed - that's what she was told at her last ortho appointment. She states that she has seen [facility] in the past and knows Dr. Mckinney very well. Pt states that she is in 8/10 pain - localized to the left pelvis. She is hungry and thirsty as well. Pt does not want to skin her dose of Lamictal or Sertraline. HOSPITAL COURSE: L Comminuted Ischial Tuberosity Fx and Inferior Pubic Rami Fx 2/2 Mechanical Fall - She was a transfer from [facility] for the above condition. She was evaluated by orthopedics and plan for conservative measure at this time with outpatient F/U in 2 weeks with repeat imaging and assessment. She will see Dr. Mckinney. She ambulated with PT services and did extremely well and pain is well controlled. She is going to utilize a wheeled walker. - She was prescribed Ibuprofen 800 mg TID PRN and Tramadol 50 mg PRN - She is weightbearing as tolerated and reports having a single floor set-up at home and assistance from her . Total Time Spent: Greater than 30 minutes This includes examination of the patient, discharge planning, medication reconciliation, and communication with other providers. Discharge Instructions Please refer to the electronic Patient Visit Report (Discharge Instructions) for additional information. Additional Copies To Frederick Hollingsworth M.D.
== END 2018-01-18 17:00 | disposition home or self-care (01) | DRG 536 ==
LOC: C.MSN 22:31
PROVIDERS: ADMIT Hospitalist; ATTEND Hospitalist
DX: S32.692A Other specified fracture of left ischium, initial encounter for closed fracture (principal); S32.592A Other specified fracture of left pubis, initial encounter for closed fracture; F32.9 Major depressive disorder, single episode, unspecified; Z96.653 Presence of artificial knee joint, bilateral; Z85.43 Personal history of malignant neoplasm of ovary; M48.061 Spinal stenosis, lumbar region without neurogenic claudication; G62.9 Polyneuropathy, unspecified; W19.XXXA Unspecified fall, initial encounter; X50.9XXA Other and unspecified overexertion or strenuous movements or postures, initial encounter; Y92.012 Bathroom of single-family (private) house as the place of occurrence of the external cause

== ENCOUNTER 2019-11-15 15:18 | Inpatient (IN) ==
[2019-11-15] MEDS ORDERED: ONDANSETRON INJ 2 MG/ML 2 ML VIAL IV STA ×2 (15:38→22:07)
[2019-11-15] MEDS ORDERED: MoRPHine SULFATE 10 MG/ML CARP/VIAL IV STA (15:38)
[2019-11-15] MEDS ORDERED: SODIUM CHLORIDE 0.9% 1000ML 1,000 ML IV SCH (15:45)
[2019-11-15] MEDS ORDERED: MoRPHine SULFATE 4 MG/ML 1 ML CARP\\VIAL ONE (15:58)
[2019-11-15] MEDS ORDERED: MoRPHine SULFATE 2 MG/ML CARP ONE (15:59)
--- NOTE | 2019-11-15 16:05 | Emergency Department Note ---
History of Present Illness General Chief complaint: GI Assessment Stated complaint: VOMITNG/DRY HEAVING SINCE 8PM, NO BM FOR 3 DAYS Time Seen by Provider: 11/15/19 15:27 Source: patient Mode of arrival: ambulatory Limitations: no limitations History of Present Illness Provider complaint: Constipation, nausea vomiting, abdominal pain Onset (ago): day(s) 3 Location: abdomen Severity: severe Pain Consistency: + constant Maximum Pain Intensity: 10 Current Pain Intensity: 10 Quality: + constant Relieved By: + none Exacerbated By: + eating and + movement Associated symptoms: + loss of appetite and + nausea/vomiting; no chest pain and no fever/chills Treatments prior to arrival: none This is a 69-year-old female who presents from home due to complaints of 3 days of constipation, worsening abdominal pain, nausea and vomiting. Patient states she has had similar episodes previously that resulted in a bowel obstruction. Patient has had prior abdominal surgery. Has had prior metastatic cervical cancer and is status post both chemo and radiation and now considered in remission. Patient denies any recent change in her diet or medications. No known sick contacts. Denies accompanying fevers or chills. Patient states her bowel movements are typically loose. Prior to 3 days ago, no change in her bowel movements otherwise, no black or bloody stools. Patient states she feels her abdomen is distended, and is globally tender, and she is not passing gas. Pt seen during a time of high acuity and national emergency pandemic while wearing PPE. Home Medications Home Medications Medication Instructions Recorded Confirmed Type cholecalciferol (vitamin D3) 1,000 unit PO QAM 04/03/18 11/15/19 History lamotrigine 200 mg PO QAM 04/03/18 11/15/19 History multivitamin 1 cap PO QAM 04/03/18 11/15/19 History sertraline 100 mg PO QAM 04/03/18 11/15/19 History vitamin B complex 1 tab PO QAM 11/03/18 11/15/19 History cyanocobalamin (vitamin B-12) 1,000 mcg SUBCUT UD 04/07/19 11/15/19 History gabapentin 1,200 mg PO TID 04/07/19 11/15/19 History acetaminophen [Tylenol Extra 1,000 mg PO Q6H PRN 11/15/19 11/15/19 History Strength] Allergies Allergy/AdvReac Type Severity Reaction Status Date / Time No Known Drug Allergies Allergy Unknown NONE Verified 11/15/19 15:55 Past Med/Surg History Medical History Anxiety Bipolar disorder Cancer Degenerative disc disease Depression Encounter for pre-operative examination History of cervical cancer RADIATION, CHEMO AND RADI IMPLANT 1989 History of chemotherapy Incontinence Lumbar stenosis (Acute 01/07/14) Neurogenic claudication due to lumbar spinal stenosis Neuropathy Osteoarthritis Osteoporosis Pelvic fracture Vitamin B12 deficiency Surgical History Fusion of spine LUMBAR 2013, MAC 3, ETT 7.0, no issues H/O colonoscopy History of laparotomy History of total knee replacement BILATERAL S/P rotator cuff repair Status post hip surgery Family History Other Diabetes Social History Preferred Language: Nicarag[place] Communication Ability: Effective Visual Impairment: No Limitations Certified Art Therapist Required: No Beliefs That Will Affect Care: None marital status: Current Living Situation: Other Current Living Situation Comment: lives with ex- Feels Safe at Home: Yes Smoking Status: Never smoker Second Hand Exposure: No ; Hx Alcohol Use: Yes Alcohol type: beer and wine Hx Substance Use: Yes substance use type: marijuana and prescription drug Substance Use Type Other:: medical marijuana Last Used Substance: Days (ago) Last Used Substance Other:: yesterday at bedtime, tincture Review of Systems See HPI for pertinent positives & negatives. and A total of 10 systems reviewed and were otherwise negative Physical Exam Vital Signs Vital Signs - 24 hr 11/15/19 15:21 11/15/19 16:20 11/15/19 16:55 Temperature 36.8 C Temperature Source Oral Pulse Rate 89 Pulse Rate [Left Finger] 80 Respiratory Rate 22 15 Blood Pressure 119/68 Blood Pressure [Left Arm] 127/77 Blood Pressure Mean 85 Blood Pressure Mean [Left Arm] 93 Pulse Oximetry 99 96 Oxygen Delivery Method Room Air Room Air Nasal Cannula Oxygen Flow Rate 84 2 Sepsis Recent Fever Within 48 Hours No Sepsis New/Unexplained Change in Mental Status No Sepsis Action Taken by Nursing No Action Required Oxygen Flow Rate - Titration 2 Pulse Oximetry Post Tiitration 95 GENERAL: alert, well appearing, well nourished, no distress, non-toxic EYE EXAM: normal conjunctiva, PERRL and EOM's grossly intact OROPHARYNX: no exudate, no erythema, lips, buccal mucosa, and tongue normal and mucous membranes are moist NECK: supple, no nuchal rigidity, no adenopathy, non-tender LUNGS: Clear to auscultation. Normal chest wall mechanics, no w/r/r HEART: no murmurs, S1 normal and S2 normal ABDOMEN: abdomen soft, generalized tenderness, normo-active bowel sounds, no masses, no rebound or guarding. BACK: Back is symmetrical on inspection and there is no deformity, no midline tenderness, no CVA tenderness. SKIN: no rashes and no bruising UPPER EXTREMITIES: upper extremities are grossly normal. FROM, nml pulses b/l. LOWER EXTREMITIES: No pitting edema. FROM, nml pulses b/l. NEURO EXAM: Normal sensorium, cranial nerves II-XII grossly intact, normal speec h, no gross weakness of arms, no gross weakness of legs. Gross sensation intact. Course Course 1700: Patient updated on results. Patient is feeling slightly improved after pain and nausea medication. 1718: Case discussed with Dr. Baldwin. He recommends admission to hospitalist and placement of an NG tube. 1725: Case discussed with Dr. Clark. Administered Medications Gabapentin (Neurontin) 1,200 mg PO TID JN Stop: 12/15/19 20:59 Last Admin: 11/17/19 20:29 Dose: 1,200 mg Documented by: [id number] Admin: 11/17/19 13:39 Dose: 1,200 mg Documented by: [id number] Admin: 11/17/19 10:18 Dose: 1,200 mg Documented by: [id number] Admin: 11/16/19 20:52 Dose: 1,200 mg Documented by: [id number] Admin: 11/16/19 13:51 Dose: 1,200 mg Documented by: [id number] Admin: 11/16/19 09:17 Dose: 1,200 mg Documented by: [id number] Admin: 11/15/19 22:25 Dose: 1,200 mg Documented by: [id number] Potassium Chloride/Sodium Chloride (1/2 Nss + 20meq Kcl 1000ml) 20 meq in 1,000 mls @ 50 mls/hr IV .Q20H JN Stop: 12/15/19 19:59 Last Infusion: 11/17/19 15:57 Dose: 50 mls/hr Documented by: [id number] Admin: 11/17/19 12:10 Dose: 100 mls/hr Documented by: [id number] Infusion: 11/17/19 11:39 Dose: 100 mls/hr Documented by: [id number] Admin: 11/17/19 01:39 Dose: 100 mls/hr Documented by: [id number] Infusion: 11/17/19 01:39 Dose: 100 mls/hr Documented by: [id number] Admin: 11/16/19 15:51 Dose: 100 mls/hr Documented by: [id number] Infusion: 11/16/19 15:24 Dose: 100 mls/hr Documented by: [id number] Admin: 11/16/19 05:24 Dose: 100 mls/hr Documented by: [id number] Infusion: 11/16/19 05:24 Dose: 100 mls/hr Documented by: [id number] Admin: 11/15/19 20:58 Dose: 100 mls/hr Documented by: [id number] Ceftriaxone Sodium 2,000 mg/ (Dextrose) 70 mls @ 100 mls/hr IV DAILY JN; Protocol Stop: 11/22/19 09:44 Last Infusion: 11/17/19 11:15 Dose: 0 mls/hr Documented by: [id number] Admin: 11/17/19 10:17 Dose: 100 mls/hr Documented by: [id number] Ioversol (Optiray 320 100ml) 93 ml IV ONCE PRN PRN Reason: Interaction Checking Stop: 11/19/19 16:41 Last Admin: 11/15/19 16:43 Dose: 93 ml Documented by: [id number] Lamotrigine (Lamictal) 200 mg PO QAM JN Stop: 12/16/19 08:59 Last Admin: 11/17/19 10:18 Dose: 200 mg Documented by: [id number] Admin: 11/16/19 09:17 Dose: 200 mg Documented by: [id number] Morphine Sulfate (Morphine Sulfate) 2 mg IV Q2H PRN PRN Reason: Pain Stop: 11/29/19 19:17 Last Admin: 11/15/19 22:26 Dose: 2 mg Documented by: [id number] Ondansetron HCl (Zofran) 4 mg IV Q6H PRN PRN Reason: Nausea Stop: 12/15/19 19:17 Last Admin: 11/16/19 11:40 Dose: 4 mg Documented by: [id number] Sertraline HCl (Zoloft) 100 mg PO QAM [facility] Stop: 12/16/19 08:59 Last Admin: 11/17/19 10:18 Dose: 100 mg Documented by: [id number] Admin: 11/16/19 09:17 Dose: 100 mg Documented by: [id number] Discontinued Medications Sodium Chloride (Nss 1000ml) 1,000 mls @ 250 mls/hr IV .Q4H JN Stop: 12/15/19 15:44 Last Infusion: 11/15/19 19:30 Dose: 0 mls/hr Documented by: [id number] Admin: 11/15/19 16:02 Dose: 250 mls/hr Documented by: [id number] Lorazepam (Ativan) 0.25 mg in 0.5 mls @ 0.5 mls/min IV NOW STA Stop: 11/15/19 17:20 Last Admin: 11/15/19 17:53 Dose: 0.5 mls/min Documented by: [id number] Morphine Sulfate (Morphine Sulfate) 6 mg IV NOW STA Stop: 11/15/19 15:39 Last Admin: 11/15/19 16:03 Dose: 6 mg Documented by: [id number] Morphine Sulfate (Morphine Sulfate) Confirm Administered Dose 4 mg .ROUTE .STK- MED ONE Stop: 11/15/19 15:59 Last Admin: 11/15/19 16:03 Dose: Not Given Documented by: [id number] Morphine Sulfate (Morphine Sulfate) Confirm Administered Dose 2 mg .ROUTE .STK- MED ONE Stop: 11/15/19 16:00 Last Admin: 11/15/19 16:03 Dose: Not Given Documented by: [id number] Ondansetron HCl (Zofran) 4 mg IV NOW STA Stop: 11/15/19 15:39 Last Admin: 11/15/19 16:03 Dose: 4 mg Documented by: [id number] Ondansetron HCl (Zofran) 4 mg IV NOW STA Stop: 11/15/19 22:08 Last Admin: 11/15/19 22:28 Dose: 4 mg Documented by: [id number] Oxymetazoline HCl (Afrin 0.05%) 1 sprays NA NOW ONE Stop: 11/15/19 18:17 Last Admin: 11/15/19 18:20 Dose: 1 sprays Documented by: [id number] Medical Decision Making Differential Diagnosis Differential diagnoses includes but is not limited to gastritis, peptic ulcer disease, GERD, gallbladder disease, pancreatitis, small bowel obstruction, acute coronary syndrome, pericarditis, ischemic bowel, irritable bowel disease, irritable bowel syndrome, appendicitis, diverticulitis, malignancy, hernia, urinary tract infection, torsion, [/ectopic (if female)], perforation, trauma, infectious. Medical Records Attestation: I reviewed the patient's medical records. Home Medications Current Medication List: was personally reviewed by me Laboratory Data Attestation: I reviewed the patient's lab results. Result diagrams: 11/16/19 05:42 11/16/19 05:42 Lab Results 11/15/19 11/15/19 11/15/19 Range/Units 15:51 15:51 15:51 WBC 10.55 (4.8-10.8) K/uL RBC 4.67 (4.2-5.4) M/uL Hgb 14.1 (12.0-16.0) g/dL Hct 41.3 (37-47) % MCV 88.4 (80-100) fL MCH 30.2 (25-34) pg MCHC 34.1 (32-36) g/dL RDW Std Deviation 43.0 (36.4-46.3) fL RDW Coeff of Liliam 13.3 (11.5-14.5) % Plt Count 286 (130-400) K/uL MPV 10.2 (7.4-10.4) fL Immature Gran % (Auto) 0.3 % Neut % (Auto) 82.0 % Lymph % (Auto) 12.1 % Andrews % (Auto) 5.2 % Eos % (Auto) 0.3 % Baso % (Auto) 0.1 % Immature Gran # (Auto) 0.03 H (0.00-0.02) K/uL Neut # (Auto) 8.65 H (1.4-6.5) K/uL Lymph # (Auto) 1.28 (1.2-3.4) K/uL Andrews # (Auto) 0.55 (0.11-0.59) K/uL Eos # (Auto) 0.03 (0-0.5) K/uL Baso # (Auto) 0.01 (0-0.2) K/uL Sodium 143 (136-145) mmol/L Potassium 3.7 (3.5-5.1) mmol/L Chloride 110 H (98-107) mmol/L Carbon Dioxide 23 (21-32) mmol/L Anion Gap 10.0 (3-11) BUN 18 (7-18) mg/dl Creatinine 0.69 (0.6-1.2) mg/dl Est Cr Clr Drug Dosing Not Reportable Est GFR ( Amer) 104.4 Est GFR (Non-Af Amer) 90.1 BUN/Creatinine Ratio 26.8 H (10-20) Glucose 111 H (70-99) mg/dl Lactate 1.2 (0.4-2.0) mmol/L Calcium 9.0 (8.5-10.1) mg/dl Magnesium 2.1 (1.8-2.4) mg/dl Total Bilirubin 1.2 H (0.2-1) mg/dl AST 16 (15-37) U/L ALT 26 (12-78) U/L Alkaline Phosphatase 83 (45-117) U/L Total Protein 7.3 (6.4-8.2) gm/dl Albumin 3.9 (3.4-5.0) gm/dl Globulin 3.4 (2.5-4.0) gm/dl Albumin/Globulin Ratio 1.1 (0.9-2) Lipase 54 L (73-393) U/L Imaging Data Radiologist's Impression: CT abd pelvis IV con only CT DOSE: 435.43 mGy.cm HISTORY: Nausea. Vomiting. n/v/d, abd pain/distention, hx surg TECHNIQUE: Multiaxial CT images of the abdomen and pelvis were performed following the use of intravenous contrast. A dose lowering technique was utilized adhering to the principles of ALARA. COMPARISON STUDY: 04/07/2019 FINDINGS: Lung bases are clear. Liver spleen and pancreas are unremarkable. Gallbladder is unremarkable. Kidneys demonstrate several small cortical cysts but are negative for hydronephrosis. Unchanged postoperative changes to the lumbar spine. Air-filled gastric distention. Moderate distention of the small bowel. No evidence for colonic distention. Terminal ileum is somewhat small in caliber although well-defined inflammatory process is not confirmed. Small amount of free fluid within the pelvic cul-de-sac is present although this is less prominent as compared to the prior study. IMPRESSION: 1. Gastric distention. 2. Distal small bowel obstruction of uncertain etiology. 3. Small amount of fluid within the cul-de-sac. ACT 112: Negative or not required by law. The above report was generated using voice recognition software. It may contain grammatical, syntax or spelling errors. Electronically signed by: Jass Almanzar M.D. 11/15/2019 4:51 PM Blood Pressure Blood Pressure Findings: Elevated blood pressure Blood Pressure Disposition: further management by hospitalist MDM Narrative Pt here with concern for 3 days of constipation and hx of SBO. VS stable and pt afebrile. Labs reassuring, lactate normal. CT revealed SBO. Case discussed with gen surgery and with hospitalist. NG tube added. Pt aware of all results and were in agreement with the plan. I do not suspect infectious or ischemic process at this time. No evidence of perforation or Gi bleed. An order was placed for continuous cardiac monitoring. The monitor shows a rate of 70_ with _normal sinus_ rhythm. Impression & Plan Bowel obstruction, Abdominal pain, Nausea Discharge Plan Visit Data *Final* Discharge Date/Time: 11/15/19 18:58 Chief Complaint: GI Assessment Stated Complaint: VOMITNG/DRY HEAVING SINCE 8PM, NO BM FOR 3 DAYS ED Provider: Kathie Torres Discharge Problem: Bowel obstruction, Abdominal pain, Nausea Patient Disposition: Admitted As Inpatient Discharge Instructions Interventions: ED Discharge Assessment Last Done: 11/15/19 18:58 Discharge Problem: Bowel obstruction Qualifiers: Intestinal obstruction type: unspecified Intestinal obstruction extent: unspecified extent Qualified Code(s): K56.609 - Unspecified intestinal obstruction, unspecified as to partial versus complete obstruction Abdominal pain Qualifiers: Abdominal location: generalized Qualified Code(s): R10.84 - Generalized abdominal pain
[2019-11-15 16:08] LABS: Basophils # (auto) 0.01 K/uL (0-0.2); Basophils % (auto) 0.1 %; Eosinophils # (auto) 0.03 K/uL (0-0.5); Eosinophils % (auto) 0.3 %; Hematocrit (blood only) 41.3 % (37-47); Hemoglobin 14.1 g/dL (12.0-16.0); Immature Granulocytes # (auto) 0.03 K/uL (0.00-0.02); Immature Granulocytes % (auto) 0.3 %; Lymphocytes # (auto) 1.28 K/uL (1.2-3.4); Lymphocytes % (auto) 12.1 %; Mean Corpuscular Hemoglobin 30.2 pg (25-34); Mean Corpuscular Hgb Conc 34.1 g/dL (32-36); Mean Corpuscular Volume 88.4 fL (80-100); Mean Platelet Volume 10.2 fL (7.4-10.4); Monocytes # (auto) 0.55 K/uL (0.11-0.59); Monocytes % (auto) 5.2 %; Neutrophils # (auto) 8.65 K/uL (1.4-6.5); Platelet Count 286 K/uL (130-400); RDW Coefficient of Variation 13.3 % (11.5-14.5); Red Blood Count 4.67 M/uL (4.2-5.4); White Blood Count 10.55 K/uL (4.8-10.8)
[2019-11-15 16:28] LABS: Alanine Aminotransferase 26 U/L (12-78); Albumin Level 3.9 gm/dl (3.4-5.0); Aspartate Aminotransferase 16 U/L (15-37); BUN Creatinine Ratio 26.8 (10-20); Blood Urea Nitrogen 18 mg/dl (7-18); Carbon Dioxide 23 mmol/L (21-32); Chloride 110 mmol/L (98-107); Est GFR (African American) 104.4; Est GFR (Non-African American) 90.1; Glucose 111 mg/dl (70-99); Lipase 54 U/L (73-393); Magnesium 2.1 mg/dl (1.8-2.4); Potassium 3.7 mmol/L (3.5-5.1); Sodium 143 mmol/L (136-145)
[2019-11-15 16:31] LABS: Albumin Globulin Ratio 1.1 (0.9-2); Alkaline Phosphatase 83 U/L (45-117); Bilirubin,Total 1.2 mg/dl (0.2-1); Globulin 3.4 gm/dl (2.5-4.0); Total Protein 7.3 gm/dl (6.4-8.2)
[2019-11-15] MEDS ORDERED: IOVERSOL 100ml IV PRN (16:42)
--- NOTE | 2019-11-15 16:53 | CT Scan Report ---
CT abd pelvis IV con only CT DOSE: 435.43 mGy.cm HISTORY: Nausea. Vomiting. n/v/d, abd pain/distention, hx surg TECHNIQUE: Multiaxial CT images of the abdomen and pelvis were performed following the use of intrave nous contrast. A dose lowering technique was utilized adhering to the principles of ALARA. COMPARISON STUDY: 04/07/2019 FINDINGS: Lung bases are clear. Liver spleen and pancreas are unremarkable. Gallbladder is unremarkab le. Kidneys demonstrate several small cortical cysts but are negative for hydronephrosis. Unchanged postoperative changes to the lumbar spine. Air-filled gastric distention. Moderate distention of the small bowel. No evidence for colonic disten tion. Terminal ileum is somewhat small in caliber although well-defined inflammatory process is not confirm ed. Small amount of free fluid within the pelvic cul-de-sac is present although this is less prominen t as compared to the prior study. IMPRESSION: 1. Gastric distention. 2. Distal small bowel obstruction of uncertain etiology. 3. Small amount of fluid within the cul-de-sac. ACT 112: Negative or not required by law. The above report was generated using voice recognition software. It may contain grammatical, syntax or spelling errors. Electronically signed by: Jass Almanzar M.D. 11/15/2019 4:51 PM
[2019-11-15] MEDS ORDERED: LORazepam 0.25 MG/0.5 ML VIAL IV STA (17:19)
--- NOTE | 2019-11-15 17:31 | History & Physical Report ---
Date of Service November 15, 2019 Assessment & Plan (1) Small bowel obstruction due to adhesions: Patient is a 69-year-old female with a history of cervical cancer status post extensive radiation to the abdomen as well as surgical removal of lymph nodes 30 years ago, with a history of recurrent SBO, here with SBO suspected of the distal small bowel. Likely secondary to adhesive disease. -Admit to medical/surgical floor -NG tube to be placed in the ER prior to going up to the floor-placed to low intermittent suction -Okay to clamp tube to administer p.o. meds for 1 hour as she states she will have withdrawal if she does not get her Lamictal -We will keep n.p.o. and give IV fluids with potassium -Follow BMP, magnesium, phosphorus in the morning replace electrolytes as needed -General surgery consultation requested in case needs surgical intervention -IV morphine as needed for pain, IV Zofran as needed for nausea -Afrin ordered for epistaxis after NG tube attempt in the ER (2) Urinary incontinence: -Receives Botox injections and follows with urology -Not an acute issue (3) Bipolar disorder: We will give her home Lamictal and sertraline by clamping her NG tube for 1 hour at the time of administration as she states she has had withdrawal in the past when she does not get her Lamictal (4) Osteoporosis: Receives Prolia injections as an outpatient -Not an acute issue (5) Neuropathy: Continue home gabapentin by clamping tube around time of administration for her severe neuropathy in bilateral lower extremities secondary to previous radiation therapy and also with a history of lumbar spinal stenosis with neurogenic claudication (6) DVT prophylaxis: SCDs only in case of need for surgical intervention would avoid anticoagulation Disposition-admit to medical/surgical floor, expected least a 2 midnight stay DNR/DNI as discussed with the patient Although she is , she is currently back together with her ex- and he would be her healthcare power of attorney general at her request if she cannot make decisions for herself History of Present Illness Chief Complaint: Abdominal pain, nausea/vomiting Primary Care Provider: Glenda Lassiter DO This patient is a 69-year-old female with a remote history of cervical cancer status post surgery and chemoradiation therapy, lumbar stenosis, depression, overactive bladder, B12 deficiency, osteoporosis, neuropathy of the legs, and bipolar disorder, who presents to the ER with 2 days of abdominal pain centrally along with nausea and vomiting. She has not had a bowel movement in 3 days and has not passed flatus for the last 36 to 48 hours. She has a history of multiple SBO's in the past x5 and felt that this was a recurrence, but tried to wait it out at home to see if it would resolve. In the past, she has been managed conservatively but has taken several days for her bowel obstructions to resolve. She denies any fever/sweats/chills, no headaches or lightheadedness, no chest pain or shortness of breath. In the ER, she was found on CT scan of the abdomen/pelvis to have a distal small bowel obstruction, gastric distention, and a small amount of fluid within the cul-de-sac. Her laboratory values were otherwise normal. Lactate was negative. She will be admitted for recurrent small bowel obstruction, likely on the basis of adhesions. The ER physician contacted the surgeon drywall contractor who recommended NG tube placement in consultation. Allergies Allergy/AdvReac Type Severity Reaction Status Date / Time No Known Drug Allergies Allergy Unknown NONE Verified 11/15/19 15:55 Home Medications Home Medications Medication Instructions Recorded Confirmed Type cholecalciferol (vitamin D3) 1,000 unit PO QAM 04/03/18 11/15/19 History lamotrigine 200 mg PO QAM 04/03/18 11/15/19 History multivitamin 1 cap PO QAM 04/03/18 11/15/19 History sertraline 100 mg PO QAM 04/03/18 11/15/19 History vitamin B complex 1 tab PO QAM 11/03/18 11/15/19 History cyanocobalamin (vitamin B-12) 1,000 mcg SUBCUT UD 04/07/19 11/15/19 History gabapentin 1,200 mg PO TID 04/07/19 11/15/19 History acetaminophen [Tylenol Extra 1,000 mg PO Q6H PRN 11/15/19 11/15/19 History Strength] Past Med/Surg History Medical History Anxiety Bipolar disorder Cancer Degenerative disc disease Depression Encounter for pre-operative examination History of cervical cancer RADIATION, CHEMO AND RADI IMPLANT 1989 History of chemotherapy Incontinence Lumbar stenosis (Acute 01/07/14) Neurogenic claudication due to lumbar spinal stenosis Neuropathy Osteoarthritis Osteoporosis Pelvic fracture Vitamin B12 deficiency Surgical History Fusion of spine LUMBAR 2014, MAC 3, ETT 7.0, no issues H/O colonoscopy History of laparotomy History of total knee replacement BILATERAL S/P rotator cuff repair Status post hip surgery Family History Other Diabetes Social History Preferred Language: Greek Communication Ability: Effective Visual Impairment: No Limitations 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 Beliefs That Will Affect Care: None marital status: Current Living Situation: Spouse Feels Safe at Home: Yes Smoking Status: Never smoker Second Hand Exposure: No ; Hx Alcohol Use: Yes Alcohol type: other Hx Substance Use: No Review of Systems Review of Systems: All systems reviewed & are unremarkable except as noted in HPI & below Physical Exam Constitutional: WD/WN, vitals as above Eyes: PERRL, conjunctivae normal, anicteric sclerae ENMT: external ear and nose normal, oropharynx normal Neck: trachea midline, no thyromegaly Respiratory: normal respiratory effort, lungs clear to auscultation Cardiovascular: RRR, no murmur, no edema Chest (Breasts): Chest: normal inspection of chest Gastrointestinal (Abdomen): Inspection/Auscultation: + abdomen distended (Mild) and + hypoactive bowel sounds; + abdomen abnormal to inspection (2 vertical incisional scars on either side of the abdomen) Percussion/Palp ation: + abdomen tender (Mild diffuse tenderness to palpation more so in the periumbilical region without guarding or rebound tenderness); no guarding and abdomen not rigid Musculoskeletal: Extremities: extremities normal to inspection; no cyanosis and no clubbing Skin: no rashes, warm and dry Neurologic: moves all extremities and awake; no focal motor deficits Psychiatric: A+Ox3, euthymic affect Lymphatic: no lymphedema Results & Data Results & Data ([facility]) Vital Signs (Past 12 Hours) Vital Signs Temp Pulse Pulse Resp BP BP Pulse Ox 11/15/19 16:55 80 15 127/77 96 11/15/19 15:21 36.8 C 89 22 119/68 99 Laboratory Results 0611/15/19 11/15/19 Range/Units 15:51 15:51 15:51 WBC 10.55 (4.8-10.8) K/uL RBC 4.67 (4.2-5.4) M/uL Hgb 14.1 (12.0-16.0) g/dL Hct 41.3 (37-47) % MCV 88.4 (80-100) fL MCH 30.2 (25-34) pg MCHC 34.1 (32-36) g/dL RDW Std Deviation 43.0 (36.4-46.3) fL RDW Coeff of Liliam 13.3 (11.5-14.5) % Plt Count 286 (130-400) K/uL MPV 10.2 (7.4-10.4) fL Immature Gran % (Auto) 0.3 % Neut % (Auto) 82.0 % Lymph % (Auto) 12.1 % [place] % (Auto) 5.2 % Eos % (Auto) 0.3 % Baso % (Auto) 0.1 % Immature Gran # (Auto) 0.03 H (0.00-0.02) K/uL Neut # (Auto) 8.65 H (1.4-6.5) K/uL Lymph # (Auto) 1.28 (1.2-3.4) K/uL [place] # (Auto) 0.55 (0.11-0.59) K/uL Eos # (Auto) 0.03 (0-0.5) K/uL Baso # (Auto) 0.01 (0-0.2) K/uL Sodium 143 (136-145) mmol/L Potassium 3.7 (3.5-5.1) mmol/L Chloride 110 H (98-107) mmol/L Carbon Dioxide 23 (21-32) mmol/L Anion Gap 10.0 (3-11) BUN 18 (7-18) mg/dl Creatinine 0.69 (0.6-1.2) mg/dl Est Cr Clr Drug Dosing Not Reportable Est GFR ( Amer) 104.4 Est GFR (Non-Af Amer) 90.1 BUN/Creatinine Ratio 26.8 H (10-20) Glucose 111 H (70-99) mg/dl Lactate 1.2 (0.4-2.0) mmol/L Calcium 9.0 (8.5-10.1) mg/dl Magnesium 2.1 (1.8-2.4) mg/dl Total Bilirubin 1.2 H (0.2-1) mg/dl AST 16 (15-37) U/L ALT 26 (12-78) U/L Alkaline Phosphatase 83 (45-117) U/L Total Protein 7.3 (6.4-8.2) gm/dl Albumin 3.9 (3.4-5.0) gm/dl Globulin 3.4 (2.5-4.0) gm/dl Albumin/Globulin Ratio 1.1 (0.9-2) Lipase 54 L (73-393) U/L Diagnostic Findings CT abd pelvis IV con only CT DOSE: 435.43 mGy.cm HISTORY: Nausea. Vomiting. n/v/d, abd pain/distention, hx surg TECHNIQUE: Multiaxial CT images of the abdomen and pelvis were performed following the use of intravenous contrast. A dose lowering technique was utilized adhering to the principles of ALARA. COMPARISON STUDY: 04/07/2019 FINDINGS: Lung bases are clear. Liver spleen and pancreas are unremarkable. Gallbladder is unremarkable. Kidneys demonstrate several small cortical cysts but are negative for hydronephrosis. Unchanged postoperative changes to the lumbar spine. Air-filled gastric distention. Moderate distention of the small bowel. No evidence for colonic distention. Terminal ileum is somewhat small in caliber although well-defined inflammatory process is not confirmed. Small amount of free fluid within the pelvic cul-de-sac is present although this is less prominent as compared to the prior study. IMPRESSION: 1. Gastric distention. 2. Distal small bowel obstruction of uncertain etiology. 3. Small amount of fluid within the cul-de-sac. Code Status & VTE Plan Code Status DNR/DNI VTE Prophylaxis Plan VTE Prophylaxis will be ordered: Yes PG Care Time/CCT Total # of Minutes Spent Total Time Spent with Patient: Total time spent is greater than 50% in coordination of care (as documented) at patient's floor/unit and/or counseling patient: Coding Level of Care Code 06528 Initial Inpt Care Lvl 3 Diagnoses Small bowel obstruction due to adhesions K56.50 Urinary incontinence R32 Bipolar disorder F31.9 Osteoporosis M81.0 Neuropathy G62.9 DVT prophylaxis Z29.9
[2019-11-15] MEDS ORDERED: OXYMETAZOLINE 0.05% 30 ML BTL ONE (18:16)
[2019-11-15] MEDS ORDERED: MoRPHine SULFATE 2 MG/ML CARP IV PRN (19:18)
--- NOTE | 2019-11-15 19:43 | XRay Report ---
XR KUB/Abdomen 1 view CLINICAL HISTORY: NG placement COMPARISON STUDY: No previous studies for comparison. FINDINGS: Nasogastric tube is placed within the gastric fundus. IMPRESSION: Nasogastric tube placed in the gastric fundus. Findings consistent with distal small bow el obstructive change. ACT 112: Negative or not required by law. The above report was generated using voice recognition software. It may contain grammatical, syntax or spelling errors. Electronically signed by: Jass Almanzar M.D. 11/15/2019 7:42 PM
--- NOTE | 2019-11-15 20:41 | Surgery Consultation ---
Date of Consultation November 15, 2019 Assessment & Plan (1) Small bowel obstruction due to adhesions: pt is a 69 year-old female who was admitted to hospital for SBO, IMP: SBO Plan, I agree with conservative treatment now, npo, NG tube, IV fluid, control pain, repeat labs in am, and KUB, no emergent surgical indication now, will F/U, pt understood, she agrees with the treatment plan, I answered all questions, (2) History of cervical cancer: History of Present Illness Attending Physician: Malena Clark MD History of Present Illness Chief Complaint: Abdominal pain, nausea/vomiting Primary Care Provider: Glenda Lassiter DO This patient is a 69-year-old female with a remote history of cervical cancer status post surgery and chemoradiation therapy, lumbar stenosis, depression, overactive bladder, B12 deficiency, osteoporosis, neuropathy of the legs, and bipolar disorder, who presents to the ER with 2 days of abdominal pain centrally along with nausea and vomiting. She has not had a bowel movement in 3 days and has not passed flatus for the last 36 to 48 hours. She has a history of multiple SBO's in the past x5 and felt that this was a recurrence, but tried to wait it out at home to see if it would resolve. In the past, she has been managed conservatively but has taken several days for her bowel obstructions to resolve. She denies any fever/sweats/chills, no headaches or lightheadedness, no chest pain or shortness of breath. In the ER, she was found on CT scan of the abdomen/pelvis to have a distal small bowel obstruction, gastric distention, and a small amount of fluid within the cu l-de-sac. Her laboratory values were otherwise normal. Lactate was negative. She will be admitted for recurrent small bowel obstruction, likely on the basis of adhesions. The ER physician contacted the surgeon concrete technician who recommended NG tube placement in consultation. I ( Aziza Baldwin MD ) got a call for consult SBO, I reviewed pt's H/P, labs, CT scan with pt, pt had NG tube placed-output- 300ml, Allergies Allergy/AdvReac Type Severity Reaction Status Date / Time No Known Drug Allergies Allergy Unknown NONE Verified 11/15/19 15:55 Home Medications Home Medications Medication Instructions Recorded Confirmed Type cholecalciferol (vitamin D3) 1,000 unit PO QAM 10/25/18 06/07/20 History lamotrigine 200 mg PO QAM 04/03/18 11/15/19 History multivitamin 1 cap PO QAM 04/03/18 11/15/19 History sertraline 100 mg PO QAM 04/03/18 11/15/19 History vitamin B complex 1 tab PO QAM 11/03/18 11/15/19 History cyanocobalamin (vitamin B-12) 1,000 mcg SUBCUT UD 04/07/19 11/15/19 History gabapentin 1,200 mg PO TID 04/07/19 11/15/19 History acetaminophen [Tylenol Extra 1,000 mg PO Q6H PRN 11/15/19 11/15/19 History Strength] Past Med/Surg History Medical History Anxiety Bipolar disorder Cancer Degenerative disc disease Depression Encounter for pre-operative examination History of cervical cancer RADIATION, CHEMO AND RADI IMPLANT 1989 History of chemotherapy Incontinence Lumbar stenosis (Acute 01/07/14) Neurogenic claudication due to lumbar spinal stenosis Neuropathy Osteoarthritis Osteoporosis Pelvic fracture Vitamin B12 deficiency Surgical History Fusion of spine LUMBAR 2014, MAC 3, ETT 7.0, no issues H/O colonoscopy History of laparotomy History of total knee replacement BILATERAL S/P rotator cuff repair Status post hip surgery Family History Other Diabetes Social History Preferred Language: Kazakh Communication Ability: Effective Visual Impairment: No Limitations Cork Insulator Required: No Beliefs That Will Affect Care: None marital status: Current Living Situation: Spouse Feels Safe at Home: Yes Smoking Status: Never smoker Second Hand Exposure: No ; Hx Alcohol Use: Yes Alcohol type: other Hx Substance Use: No Review of Systems Review of Systems: All systems reviewed & are unremarkable except as noted in HPI & below Allergies Allergy/AdvReac Type Severity Reaction Status Date / Time No Known Drug Allergies Allergy Unknown NONE Verified 11/15/19 15:55 Home Medications Home Medications Medication Instructions Recorded Confirmed Type cholecalciferol (vitamin D3) 1,000 unit PO QAM 04/03/18 11/15/19 History lamotrigine 200 mg PO QAM 04/03/18 11/15/19 History multivitamin 1 cap PO QAM 04/03/18 11/15/19 History sertraline 100 mg PO QAM 04/03/18 11/15/19 History vitamin B complex 1 tab PO QAM 11/03/18 11/15/19 History cyanocobalamin (vitamin B-12) 1,000 mcg SUBCUT UD 04/07/19 11/15/19 History gabapentin 1,200 mg PO TID 04/07/19 11/15/19 History acetaminophen [Tylenol Extra 1,000 mg PO Q6H PRN 11/15/19 11/15/19 History Strength] Patient History Medical History Anxiety Bipolar disorder Cancer Degenerative disc disease Depression Encounter for pre-operative examination History of cervical cancer RADIATION, CHEMO AND RADI IMPLANT 1989 History of chemotherapy Incontinence Lumbar stenosis (Acute 01/07/14) Neurogenic claudication due to lumbar spinal stenosis Neuropathy Osteoarthritis Osteoporosis Pelvic fracture Vitamin B12 deficiency Surgical History Fusion of spine LUMBAR 2014, MAC 3, ETT 7.0, no issues H/O colonoscopy History of laparotomy History of total knee replacement BILATERAL S/P rotator cuff repair Status post hip surgery Family History Other Diabetes Social History Preferred Language: Kazakh Communication Ability: Effective Visual Impairment: No Limitations Cork Insulator Required: No Beliefs That Will Affect Care: None marital status: Current Living Situation: Other Current Living Situation Comment: lives with ex- Other Information That Helps Us Care for You: No Feels Safe at Home: Yes Safety Concerns: Feels Safe At This Time Smoking Status: Never smoker Second Hand Exposure: No ; Hx Alcohol Use: Yes Alcohol type: beer and wine Hx Substance Use: Yes substance use type: marijuana and prescription drug Substance Use Type Other:: medical marijuana Last Used Substance: Days (ago) Last Used Substance Other:: yesterday at bedtime, tincture Review of Systems Review of Systems: All systems reviewed & are unremarkable except as noted in HPI & below Constitutional: as per Subjective / HPI Eyes: as per Subjective / HPI Ear, Nose, Mouth, Throat: as per Subjective / HPI Respiratory: as per Subjective / HPI Cardiovascular: as per Subjective / HPI Gastrointestinal: as per Subjective / HPI SBO, dissection abdominal lymph nodes Genitourinary: as per Subjective / HPI Cervical cancer with radiation and chemotherapy Musculoskeletal: as per Subjective / HPI lumbar stenosis Integumentary: as per Subjective / HPI Neurologic: as per Subjective / HPI Psychiatric: as per Subjective / HPI Endocrine: as per Subjective / HPI Hematologic / Lymphatic: as per Subjective / HPI Allergy / Immunological: as per Subjective / HPI Physical Exam Constitutional: WD/WN, vitals as above well developed and well nourished Eyes: PERRL, conjunctivae normal, anicteric sclerae ENMT: external ear and nose normal, oropharynx normal Neck: trachea midline, no thyromegaly Respiratory: normal respiratory effort, lungs clear to auscultation normal respiratory effort Cardiovascular: RRR, no murmur, no edema Rate/Rhythm: regular rate and regular rhythm Heart Sounds: normal S1 and normal S2 Gastrointestinal (Abdomen): normal bowel sounds, soft, nontender, no hepat osplenomegaly Percussion/Palpation: abdomen soft mild tenderness at lower abdomen, no rebound pain, BS +no distend, Musculoskeletal: no cyanosis or clubbing, extremities motor strength 5/5 Skin: no rashes, warm and dry Neurologic: patellar DTR's 2+ bilat, sensation intact Psychiatric: Orientation: alert and oriented x 3 Results & Data Vital Signs (Past 12 Hours) Vital Signs Temp Pulse Pulse Resp BP BP Pulse Ox 11/15/19 19:43 37 C 80 16 128/71 98 11/15/19 18:47 86 18 150/83 H 95 11/15/19 18:20 77 18 97 11/15/19 17:55 81 21 130/79 99 11/15/19 16:55 80 15 127/77 96 11/15/19 15:21 36.8 C 89 22 119/68 99 Laboratory Results Abnormal lab results 11/15/19 11/15/19 Range/Units 15:51 15:51 Immature Gran # (Auto) 0.03 H (0.00-0.02) K/uL Neut # (Auto) 8.65 H (1.4-6.5) K/uL Chloride 110 H (98-107) mmol/L BUN/Creatinine Ratio 26.8 H (10-20) Glucose 111 H (70-99) mg/dl Total Bilirubin 1.2 H (0.2-1) mg/dl Lipase 54 L (73-393) U/L Diagnostic Findings CT abd pelvis IV con only CT DOSE: 435.43 mGy.cm HISTORY: Nausea. Vomiting. n/v/d, abd pain/distention, hx surg TECHNIQUE: Multiaxial CT images of the abdomen and pelvis were performed following the use of intravenous contrast. A dose lowering technique was utilized adhering to the principles of ALARA. COMPARISON STUDY: 04/07/2019 FINDINGS: Lung bases are clear. Liver spleen and pancreas are unremarkable. Gallbladder is unremarkable. Kidneys demonstrate several small cortical cysts but are negative for hydronephrosis. Unchanged postoperative changes to the lumbar spine. Air-filled gastric distention. Moderate distention of the small bowel. No evidence for colonic distention. Terminal ileum is somewhat small in caliber although well-defined inflammatory process is not confirmed. Small amount of free fluid within the pelvic cul-de-sac is present although this is less prominent as compared to the prior study. IMPRESSION: 1. Gastric distention. 2. Distal small bowel obstruction of uncertain etiology. 3. Small amount of fluid within the cul-de-sac. XR KUB/Abdomen 1 view CLINICAL HISTORY: NG placement COMPARISON STUDY: No previous studies for comparison. FINDINGS: Nasogastric tube is placed within the gastric fundus. IMPRESSION: Nasogastric tube placed in the gastric fundus. Findings consistent with distal small bowel obstructive change.
[2019-11-15] MEDS: SODIUM CHLOR 0.45% + 20MEQ KCL 20 MEQ/1,000 ML BAG IV SCH (20:58)
[2019-11-15] MEDS: GABAPENTIN 600 MG TAB PO SCH (22:25)
[2019-11-15] MEDS: ONDANSETRON INJ 2 MG/ML 2 ML VIAL IV PRN (22:26)
[2019-11-16] MEDS: SODIUM CHLOR 0.45% + 20MEQ KCL 20 MEQ/1,000 ML BAG IV SCH ×2 (05:24→15:51)
[2019-11-16 06:10] LABS: Basophils # (auto) 0.02 K/uL (0-0.2); Basophils % (auto) 0.3 %; Eosinophils # (auto) 0.22 K/uL (0-0.5); Eosinophils % (auto) 3.3 %; Hematocrit (blood only) 34.8 % (37-47); Hemoglobin 11.5 g/dL (12.0-16.0); Immature Granulocytes # (auto) 0.01 K/uL (0.00-0.02); Immature Granulocytes % (auto) 0.2 %; Lymphocytes # (auto) 1.49 K/uL (1.2-3.4); Lymphocytes % (auto) 22.5 %; Mean Corpuscular Hemoglobin 29.8 pg (25-34); Mean Corpuscular Volume 90.2 fL (80-100); Mean Platelet Volume 10.2 fL (7.4-10.4); Monocytes # (auto) 0.58 K/uL (0.11-0.59); Monocytes % (auto) 8.8 %; Neutrophils # (auto) 4.29 K/uL (1.4-6.5); Neutrophils % (auto) 64.9 %; Platelet Count 219 K/uL (130-400); RDW Coefficient of Variation 13.5 % (11.5-14.5); RDW Standard Deviation 44.1 fL (36.4-46.3); Red Blood Count 3.86 M/uL (4.2-5.4); White Blood Count 6.61 K/uL (4.8-10.8)
[2019-11-16 06:50] LABS: BUN Creatinine Ratio 29.1 (10-20); Calcium 7.9 mg/dl (8.5-10.1); Est GFR (African American) 108.7; Est GFR (Non-African American) 93.8; Magnesium 2.1 mg/dl (1.8-2.4); Potassium 3.9 mmol/L (3.5-5.1)
[2019-11-16 06:51] LABS: Phosphorus 2.3 mg/dl (2.5-4.9)
[2019-11-16 06:58] LABS: Appearance Urine Clear (Clear); Bacteria Urine Automated 2+ (Negative); Bilirubin Urine Negative (Negative); Blood Urine 2+ (Negative); Color Urine Dark Yellow; Glucose Urine UA Negative (Negative); Ketones Urine Trace (Negative); Leukocyte Esterase Urine Negative (Negative); Nitrite Urine Positive (Negative); Protein Urine Negative (Negative); Specific Gravity Urine > 1.045 (1.000-1.030); Urobilinogen Urine Negative (Negative); WBC Urine Automated >30 /hpf (0-5)
[2019-11-16] MEDS: SERTRALINE HCL 100 MG TABLET PO SCH (09:17)
[2019-11-16] MEDS: lamoTRIgine 100 MG TAB PO SCH (09:17)
[2019-11-16] MEDS: GABAPENTIN 600 MG TAB PO SCH ×3 (09:17→20:52)
--- NOTE | 2019-11-16 10:56 | Surgery Progress Note ---
Date of Service stable, not pass gas or BM yet, no significant abdominal pain, NG -650ml November 16, 2019 Assessment & Plan (1) Small bowel obstruction due to adhesions: pt is a 69 year-old female who was admitted to hospital for SBO, IMP: SBO Plan, I agree with conservative treatment now, npo, NG tube, IV fluid, control pain, repeat labs in am, and KUB, no emergent surgical indication now, will F/U, pt understood, she agrees with the treatment plan, I answered all questions, 11/16/2019 10 :55AM stable, not pass gas yet, continue treatment, KUB tomorrow morning, will F/U (2) History of cervical cancer: Review of Systems Constitutional: as per Subjective / HPI Eyes: as per Subjective / HPI Ear, Nose, Mouth, Throat: as per Subjective / HPI Respiratory: as per Subjective / HPI Cardiovascular: as per Subjective / HPI Gastrointestinal: as per Subjective / HPI SBO, dissection abdominal lymph nodes Genitourinary: as per Subjective / HPI Cervical cancer with radiation and chemotherapy Musculoskeletal: as per Subjective / HPI lumbar stenosis Integumentary: as per Subjective / HPI Neurologic: as per Subjective / HPI Psychiatric: as per Subjective / HPI Endocrine: as per Subjective / HPI Hematologic / Lymphatic: as per Subjective / HPI Allergy / Immunological: as per Subjective / HPI Physical Exam Constitutional: WD/WN, vitals as above well developed and well nourished Eyes: PERRL, conjunctivae normal, anicteric sclerae ENMT: external ear and nose normal, oropharynx normal Neck: trachea midline, no thyromegaly Respiratory: normal respiratory effort, lungs clear to auscultation normal respiratory effort Cardiovascular: RRR, no murmur, no edema Rate/Rhythm: regular rate and r egular rhythm Heart Sounds: normal S1 and normal S2 Gastrointestinal (Abdomen): normal bowel sounds, soft, nontender, no hepatosplenomegaly Percussion/Palpation: abdomen soft mild tenderness at lower, no rebound pain, BS +, no distend Musculoskeletal: no cyanosis or clubbing, extremities motor strength 5/5 Skin: no rashes, warm and dry Neurologic: patellar DTR's 2+ bilat, sensation intact Psychiatric: Orientation: alert and oriented x 3 Results & Data Vital Signs (Past 12 Hours) Vital Signs Temp Pulse Resp BP Pulse Ox 11/16/19 08:02 36.7 C 71 18 102/62 94 11/16/19 00:21 36.4 C L 76 14 114/69 92 Laboratory Results Abnormal lab results 11/15/19 11/15/19 11/16/19 Range/Units 15:51 15:51 05:42 RBC 3.86 L (4.2-5.4) M/uL Hgb 11.5 L (12.0-16.0) g/dL Hct 34.8 L (37-47) % Immature Gran # (Auto) 0.03 H (0.00-0.02) K/uL Neut # (Auto) 8.65 H (1.4-6.5) K/uL Chloride 110 H (98-107) mmol/L BUN/Creatinine Ratio 26.8 H (10-20) Glucose 111 H (70-99) mg/dl Calcium (8.5-10.1) mg/dl Phosphorus (2.5-4.9) mg/dl Total Bilirubin 1.2 H (0.2-1) mg/dl Lipase 54 L (73-393) U/L Ur Specific [place] (1.000-1.030) Urine Ketones (Negative) Urine Blood (Negative) Urine Nitrite (Negative) Urine WBC (Auto) (0-5) /hpf Urine RBC (Auto) (0-4) /hpf U Hyaline Cast (Auto) (0-5) /lpf U Epithel Cells (Auto) (0-5) /lpf Urine Bacteria (Auto) (Negative) 11/16/19 11/16/19 Range/Units 05:42 06:44 RBC (4.2-5.4) M/uL Hgb (12.0-16.0) g/dL Hct (37-47) % Immature Gran # (Auto) (0.00-0.02) K/uL Neut # (Auto) (1.4-6.5) K/uL Chloride 114 H (98-107) mmol/L BUN/Creatinine Ratio 29.1 H (10-20) Glucose (70-99) mg/dl Calcium 7.9 L (8.5-10.1) mg/dl Phosphorus 2.3 L (2.5-4.9) mg/dl Total Bilirubin (0.2-1) mg/dl Lipase (73-393) U/L Ur Specific [place] > 1.045 H (1.000-1.030) Urine Ketones Trace H (Negative) Urine Blood 2+ H (Negative) Urine Nitrite Positive A (Negative) Urine WBC (Auto) >30 H (0-5) /hpf Urine RBC (Auto) 10-30 H (0-4) /hpf U Hyaline Cast (Auto) 5-10 H (0-5) /lpf U Epithel Cells (Auto) 10-20 H (0-5) /lpf Urine Bacteria (Auto) 2+ H (Negative)
[2019-11-16] MEDS: ONDANSETRON INJ 2 MG/ML 2 ML VIAL IV PRN (11:40)
--- NOTE | 2019-11-16 13:49 | Hospitalist Progress Note ---
Date of Service November 16, 2019 Assessment & Plan (1) Small bowel obstruction due to adhesions: Patient is a 69-year-old female with a history of cervical cancer status post extensive radiation to the abdomen as well as surgical removal of lymph nodes 30 years ago, with a history of recurrent SBO, here with SBO suspected of the distal small bowel. Likely secondary to adhesive disease. -Admit to medical/surgical floor -NG tube to be placed in the ER prior to going up to the floor-placed to low intermittent suction -Okay to clamp tube to administer p.o. meds for 1 hour as she states she will have withdrawal if she does not get her Lamictal -We will keep n.p.o. and give IV fluids with potassium -Follow BMP, magnesium, phosphorus in the morning replace electrolytes as needed -General surgery consultation requested in case needs surgical intervention -IV morphine as needed for pain, IV Zofran as needed for nausea -Afrin ordered for epistaxis after NG tube attempt in the ER (2) Urinary incontinence: -Receives Botox injections and follows with urology -Not an acute issue (3) Bipolar disorder: We will give her home Lamictal and sertraline by clamping her NG tube for 1 hour at the time of administration as she states she has had withdrawal in the past when she does not get her Lamictal (4) Osteoporosis: Receives Prolia injections as an outpatient -Not an acute issue (5) Neuropathy: Continue home gabapentin by clamping tube around time of administration for her severe neuropathy in bilateral lower extremities secondary to previous radiation therapy and also with a history of lumbar spinal stenosis with neurogenic claudication (6) DVT prophylaxis: SCDs only in case of need for surgical intervention would avoid anticoagulation Disposition-admit to medical/surgical floor, expected least a 2 midnight stay DNR/DNI as discussed with the patient Although she is , she is currently back together with her ex- and he would be her healthcare power of insurance defense attorney at her request if she cannot make decisions for herself Admission and Anticipated Discharge Date Admission Date: November 15, 2019 Subjective Pt feels overall improved, but still with mild LUQ pain, nausea, and distention. All of these sx are improved, but still mildly present. No further emesis. No bowel movement. Pt denies fever, SOB, chest pain, LE pain or swelling. Review of Systems Review of Systems: Pertinent positives and negatives reviewed in HPI--all others negative Physical Exam Constitutional: WD/WN, vitals as above Eyes: normal visual ramirez by confrontation and + anicteric sclerae Neck: normal visual inspection and trachea midline Respiratory: normal respiratory effort, lungs clear to auscultation Cardiovascular: Rate/Rhythm: regular rate and regular rhythm Gastrointestinal (Abdomen): Inspection/Auscultation: + abdomen distended (minimal) Percussion/Palpation: + abdomen tender (LUQ, mild) and abdomen soft Musculoskeletal: Head/Neck/Chest: normocephalic and head atraumatic negative for edema, peripheral pulses intact Skin: no rashes, warm and dry Neurologic: awake; not confused Speech / Cognition: normal speech Psychiatric: A+Ox3, euthymic affect Results & Data Results & Data ([facility]) Vital Signs (Past 12 Hours) Vital Signs Temp Pulse Resp BP Pulse Ox 11/16/19 08:02 36.7 C 71 18 102/62 94 PG Care Time/CCT Total # of Minutes Spent Total Time Spent with Patient: Total time spent is greater than 50% in coordination of care (as documented) at patient's floor/unit and/or counseling patient: Coding Level of Care Code 45437 Subseq Hosp Care Lvl 3 Diagnoses Small bowel obstruction due to adhesions K56.50 Urinary incontinence R32 Bipolar disorder F31.9 Osteoporosis M81.0 Neuropathy G62.9 DVT prophylaxis Z29.9
--- NOTE | 2019-11-16 22:02 | Electrocardiogram Report ---
Test Reason : Blood Pressure : / mmHG Vent. Rate : 078 BPM Atrial Rate : 078 BPM P-R Int : 132 ms QRS Dur : 100 ms QT Int : 404 ms P-R-T Axes : 017 -22 069 degrees QTc Int : 460 ms Normal sinus rhythm When compared with ECG of 08-APR-2018 11:42, No significant change Confirmed by Herberth Meza ([id number]) on 11/16/2019 10:02:06 PM Referred By: REFERRED SELF Confirmed By:Herberth Meza
[2019-11-17] MEDS: SODIUM CHLOR 0.45% + 20MEQ KCL 20 MEQ/1,000 ML BAG IV SCH ×2 (01:39→12:10)
--- NOTE | 2019-11-17 08:02 | XRay Report ---
XR KUB/Abdomen 1 view CLINICAL HISTORY: Small bowel obstruction COMPARISON STUDY: 11/15/2019 FINDINGS: A nasogastric tube is visualized within the stomach. There is decreased small bowel dilatat ion. There are postsurgical changes within the lumbar spine and right hip. IMPRESSION: 1. Decreased small bowel dilatation when compared with the preceding study. 2. Nasogastric tube visualized within the stomach. ACT 112: Negative or not required by law. Electronically signed by: Ag Gamez M.D. 11/17/2019 8:01 AM
[2019-11-17] MEDS ORDERED: cefTRIAXone SODIUM 2,000 MG in DEXTROSE 5% 50 ML IV SCH (09:45)
--- NOTE | 2019-11-17 10:13 | Surgery Progress Note ---
Date of Service November 17, 2019 Assessment & Plan (1) Small bowel obstruction due to adhesions: Small bowel obstruction has resolved Patient's peristalsis has returned. Can discontinue NG tube. Encourage ambulation. Begin clear liquids. Subjective Feeling much better today Denies abdominal pain Passing large amounts of flatus No bowel movement as yet Denies nausea and vomiting NG tube had minimal output Physical Exam Gastrointestinal (Abdomen): Inspection/Auscultation: abdomen normal to inspection and normal bowel sounds; abdomen not distended Percussion/Palpation: abdomen soft; abdomen nontender Results & Data Vital Signs (Past 12 Hours) Vital Signs Temp Pulse Resp BP Pulse Ox 11/17/19 07:12 37.0 C 73 16 116/68 96 11/16/19 23:39 36.9 C 59 L 16 111/57 L 97 Diagnostic Findings XR KUB/Abdomen 1 view CLINICAL HISTORY: Small bowel obstruction COMPARISON STUDY: 11/15/2019 FINDINGS: A nasogastric tube is visualized within the stomach. There is de creased small bowel dilatation. There are postsurgical changes within the lumbar spine and right hip. IMPRESSION: 1. Decreased small bowel dilatation when compared with the preceding study. 2. Nasogastric tube visualized within the stomach.
[2019-11-17] MEDS: lamoTRIgine 100 MG TAB PO SCH (10:18)
[2019-11-17] MEDS: GABAPENTIN 600 MG TAB PO SCH ×3 (10:18→20:29)
[2019-11-17] MEDS: SERTRALINE HCL 100 MG TABLET PO SCH (10:18)
--- NOTE | 2019-11-17 17:13 | Hospitalist Progress Note ---
Date of Service November 17, 2019 Assessment & Plan (1) Small bowel obstruction due to adhesions: clinically and radiographically improved NG tube d/c today by gen surg clears started cut fluid rate to 50cc/hr ambulate hopefully will have BM tonight appreciate gen surg assistance (2) Urinary incontinence: receives Botox injections and follows with urology has recurrent UTIs - likely due to incontinence (3) Bipolar disorder: cont all home meds no issues (4) Osteoporosis: Receives Prolia injections as an outpatient (5) Neuropathy: Continue home gabapentin (6) History of cervical cancer: 1989 requests personal loan specialist referral for f/u spoke with nurse navigator who [place] [facility] [place] [facility] (7) UTI (urinary tract infection): 2nd to ecoli start rocephin follow final culture symptomatic - reports very foul urine last few days (8) DVT prophylaxis: SCDs ambulation low risk by calculator hopefully home tomorrow Admission and Anticipated Discharge Date Admission Date: November 15, 2019 Subjective saw patient post ng tube discontinuation since such has had no nausea tolerating clears passing plenty of flatus no stool yet no abd pain pt reports h/o cervical cancer - treated aggressively at cancer center in [facility] requests referral to tank storage supervisor for surveillance Review of Systems Constitutional: no fever Respiratory: no dyspnea and no dyspnea on exertion Cardiovascular: no chest pain Gastrointestinal: no abdominal pain and no vomiting Physical Exam Constitutional: well developed and well nourished; no acute distress and no altered mental status ENMT: external ear and nose normal, oropharynx normal Respiratory: normal respiratory effort, lungs clear to auscultation Cardiovascular: Rate/Rhythm: regular rate and regular rhythm Heart Sounds: normal S1 and normal S2; no murmur Vessels: posterior tibial pulses present and dorsalis pedis pulses present; no JVD Extremities: no edema Gastrointestinal (Abdomen): normal bowel sounds, soft, nontender, no hepatosplenomegaly Inspection/Auscultation: + abdomen distended (Minimal) Psychiatric: A+Ox3, euthymic affect Results & Data Results & Data ([facility]) Vital Signs (Past 12 Hours) Vital Signs Temp Pulse Resp BP Pulse Ox 11/17/19 16:26 36.8 C 75 18 137/84 97 11/17/19 07:12 37.0 C 73 16 116/68 96 Diagnostic Findings abd x-rays - less small bowel dilatation ng tube tip in stomach PG Care Time/CCT Total # of Minutes Spent Total Time Spent with Patient: Total time spent is greater than 50% in coordination of care (as documented) at patient's floor/unit and/or counseling patient: Coding Level of Care Code 78739 Subseq Hosp Care Lvl 2 Diagnoses Small bowel obstruction due to adhesions K56.50 Urinary incontinence R32 Bipolar disorder F31.9 Osteoporosis M81.0 Neuropathy G62.9 History of cervical cancer Z85.41 UTI (urinary tract infection) N39.0 DVT prophylaxis Z29.9
[2019-11-18] MEDS: SODIUM CHLOR 0.45% + 20MEQ KCL 20 MEQ/1,000 ML BAG IV SCH (04:04)
[2019-11-18 07:12] LABS: BUN Creatinine Ratio 13.3 (10-20); Calcium 8.3 mg/dl (8.5-10.1); Creatinine Clr Calc Pharmacy 124.5 ml/min; Est GFR (African American) 116.8; Est GFR (Non-African American) 100.8; Potassium 4.1 mmol/L (3.5-5.1)
[2019-11-18] MEDS ORDERED: cephALEXin 500 MG CAP PO SCH (09:00)
[2019-11-18] MEDS: GABAPENTIN 600 MG TAB PO SCH (09:30)
[2019-11-18] MEDS: lamoTRIgine 100 MG TAB PO SCH (09:30)
[2019-11-18] MEDS: SERTRALINE HCL 100 MG TABLET PO SCH (09:30)
--- NOTE | 2019-11-18 10:31 | Surgery Progress Note ---
Date of Service November 18, 2019 Assessment & Plan (1) Bowel obstruction: Small bowel obstruction has resolved. Advance diet Discharge would be acceptable from a surgical standpoint. Subjective Feels very well today Denies abdominal pain Denies nausea and vomiting Tolerated liquid diet Continues to have bowel movements and pass flatus Physical Exam Gastrointestinal (Abdomen): Inspection/Auscultation: normal bowel sounds; abdomen not distended Percussion/Palpation: abdomen soft; abdomen nontender Results & Data Vital Signs (Past 12 Hours) Vital Signs Temp Pulse Resp BP Pulse Ox 11/18/19 07:37 36.7 C 64 16 121/78 96 11/17/19 23:07 36.6 C 65 16 115/71 95 (1) Bowel obstruction Intestinal obstruction extent: unspecified extent Intestinal obstruction type: unspecified Qualified Code(s): K56.609 - Unspecified intestinal obstruc tion, unspecified as to partial versus complete obstruction
--- NOTE | 2019-11-18 13:02 | Discharge Summary ---
Date of Service date of admission - November 15, 2019 date of discharge - November 18, 2019 Admission HPI Per Admitting Provider This patient is a 69-year-old female with a remote history of cervical cancer status post surgery and chemoradiation therapy, lumbar stenosis, depression, overactive bladder, B12 deficiency, osteoporosis, neuropathy of the legs, and bipolar disorder, who presents to the ER with 2 days of abdominal pain centrally along with nausea and vomiting. She has not had a bowel movement in 3 days and has not passed flatus for the last 36 to 48 hours. She has a history of multiple SBO's in the past x5 and felt that this was a recurrence, but tried to wait it out at home to see if it would resolve. In the past, she has been managed conservatively but has taken several days for her bowel obstructions to resolve. She denies any fever/sweats/chills, no headaches or lightheadedness, no chest pain or shortness of breath. In the ER, she was found on CT scan of the abdomen/pelvis to have a distal small bowel obstruction, gastric distention, and a small amount of fluid within the cul-de-sac. Her laboratory values were otherwise normal. Lactate was negative. She will be admitted for recurrent small bowel obstruction, likely on the basis of adhesions. The ER physician contacted the surgeon mainframe consultant who recommended NG tube placement in consultation. Principal Diagnosis Small bowel obstruction likely 2nd adhesions - resolved with conservative measures Discharge Exam Constitutional well developed and well nourished; no acute distress and no altered mental status ENMT external ear and nose normal, oropharynx normal Respiratory normal respiratory effort, lungs clear to auscultation Cardiovascular Rate/Rhythm: regular rate and regular rhythm Heart Sounds: normal S1 and normal S2; no murmur Vessels: posterior tibial pulses present and dorsalis pedis pulses present; no JVD Extremities: no edema Gastrointestinal (Abdomen) normal bowel sounds, soft, nontender, no hepatosplenomegaly Inspection/Auscultation: abdomen not distended Psychiatric A+Ox3, euthymic affect Discharge Data Allergies Allergy/AdvReac Type Severity Reaction Status Date / Time No Known Drug Allergies Allergy Unknown NONE Verified 11/15/19 15:55 Consultations General Surgery Ordered Studies 11/15/19 - CT abd pelvis IV con only - IMPRESSION: 1. Gastric distention. 2. Distal small bowel obstruction of uncertain etiology. 3. Small amount of fluid within the cul-de-sac. Hospital Course (1) Small bowel obstruction due to adhesions: clinically and radiographically resolved with NG tube decompression, IV fluids, and conservative measures. followed by general surgery during her stay who provided feliz recommendations for her care. NG tube was ultimately discontinued and clear liquid diet was initiated. patient tolerated this well. she was passing plenty of flatus and had multiple stools prior to discharge. she was tolerating a low fiber diet at discharge. she was advised to follow a low-fiber diet for 7-10 days post-discharge. warning symptoms/signs that would prompt re-evaluation at the hospital were discussed. SBO was likely on the basis of adhesions from prior cervical cancer treatment. (2) UTI (urinary tract infection): 2nd to . received rocephin, then was transitioned to oral keflex at discharge for an additional 6 days of therapy. (3) History of cervical cancer: 1989 requested rubber splicer referral post-discharge for ongoing care referral made to [facility] [place] [facility] for shortly after discharge (4) Urinary incontinence: receives Botox injections and follows with urology has recurrent UTIs - likely due to incontinence f/u with urology for routine care (5) Bipolar disorder: cont all home meds no issues while here (6) Osteoporosis: Receives Prolia injections as an outpatient (7) Neuropathy: Continue home gabapentin Total Time Total Time Spent Total Time Spent (In Minutes): 25 Total Time Includes: Examination of the Patient, Discharge Planning, Medication Reconciliation and Communication With Other Providers Discharge Plan Discharge Items Patient Disposition: Home - Self-Care Reason For Visit: SBO Discharge Diagnosis: SBO (small bowel obstruction) - resolved UTI (urinary tract infection) - resolving Activity: Resume your previous activity Driving/Machine Use: No limitations Non-emergency contact: Primary Care Provider Call non-emergency contact if: you have any medication questions, your symptoms worsen, your pain is not controlled, your pain is worsening, your pain is unusual for you, your pain is concerning for you and you have a fever Follow-up/Referrals: Glenda Lassiter DO [Primary Care Provider] - 11/27/19 1:30 pm (Please, follow up with Dr. Lassiter on SaturdayNovember 26 at 1:30 pm. *If you need to change this appointment, call the office at [phone]. ) Narendra Frankel MD [Physician] - 11/23/19 1:15 pm (Please, follow up at [facility] Office with Dr. Frankel on SaturdayNovember 22 at 1:15 pm. *The office is located in [address] [facility] [place], next to this hospital. If you need to change this appointment, call the office at [phone].) Diet: Low Fiber Addtl Attending Provider Instructions: You were treated for small bowel obstruction with conservative measures including NG tube, bowel rest, and IV fluids. Your bowel obstruction resolved with these measures, your NG tube was discontinued, and you were started back on a diet. You tolerated this well. You are moving your bowels well prior to discharge. A urinary tract infection was also discovered during the visit. This is resolving with antibiotics. Recommendations - 1. plenty of fluids over the next few days 2. low fiber diet for 7-10 days; high fiber foods include beans, certain cereals, excessive amounts of fruits and veggies, etc. DO NOT take a fiber supplement during this time 3. antibiotics - cephalexin 500mg twice daily for 6 days; first dose tonight 4. eat yogurt daily for 1 week Follow-up - see separate section Return to [facility] if - * you have fever over 100.4 degrees * you have worsening abdominal pain or vomiting * you have severe diarrhea * any other concerns Pending Studies at Discharge: No Stand-Alone Forms: My [facility], Smoking Cessation Medications and DC Order Prescriptions: New cephalexin 500 mg Capsule 500 mg PO BID 6 Days Qty: 12 RF: 0 Continued lamotrigine 200 mg Tablet 200 mg PO QAM RF: 0 sertraline 100 mg Tablet 100 mg PO QAM RF: 0 multivitamin Capsule 1 cap PO QAM RF: 0 cholecalciferol (vitamin D3) 1,000 unit Capsule 1,000 unit PO QAM RF: 0 vitamin B complex Tablet 1 tab PO QAM RF: 0 acetaminophen [Tylenol Extra Strength] 500 mg Tablet 1,000 mg PO Q6H PRN (Reason: Pain) RF: 0 gabapentin 600 mg tablet 1,200 mg PO TID RF: 0 cyanocobalamin (vitamin B-12) 1,000 mcg/mL solution 1,000 mcg subcut UD RF: 0 Discharge Orders: Discharge Order (Routine); Ordered 11/18/19 Ordered By: Ulisses Braswell Admission Data Admit Date/Time: 11/15/19 18:00 Attending Provider: Ulisses Braswell Admit Provider: Malena Clark Primary Care Provider: Glenda Lassiter Other Providers: Malena Clark ; Aziza Baldwin Other Interventions: Discharge Summary Assessment (RN) Last Done: 11/18/19 13:00 DC Date/Time DO NOT enter until pt leaves facility: 11/18/19 13:54 Coding Level of Care Code D/C Day Management <30 mins Diagnoses Small bowel obstruction due to adhesions K56.50 UTI (urinary tract infection) N39.0 History of cervical cancer Z85.41 Urinary incontinence R32 Bipolar disorder F31.9 Osteoporosis M81.0 Neuropathy G62.9
== END 2019-11-18 13:54 | disposition home or self-care (01) | DRG 389 ==
LOC: ED 15:18 → 3N 18:00 → SUATTDRO 18:00 → 3N 18:58

== ENCOUNTER 2020-09-21 08:00 | Observation (INO) ==
[2020-09-21] MEDS ORDERED: MoRPHine SULFATE 10 MG/ML CARP/VIAL IM STA (09:21)
--- NOTE | 2020-09-21 09:54 | XRay Report ---
XR hip RT 2V w pelvis HISTORY: 70 years-old Female pain, "felt a crack" acute pelvic and right hip pain COMPARISON: CT abdomen and pelvis 11/15/2019 TECHNIQUE: AP view of the pelvis with 2 views of the right hip FINDINGS: Demineralized appearance the bones. Partially imaged fusion hardware with discectomy changes of the l ower lumbar spine. Surgical clips of the pelvis. Mild osteophyte is of the bilateral hips. Intratroch anteric nail with elongated medullary daniela of the right femur. No acute fracture or evidence of hardwa re loosening. Right knee total joint arthroplasty. IMPRESSION: No acute fracture. ACT 112: Negative or not required by law. The above report was generated using voice recognition software. It may contain grammatical, syntax o r spelling errors. Electronically signed by: Avinash Ferrell M.D. 09/21/2020 9:53 AM
[2020-09-21] MEDS ORDERED: SODIUM CHLORIDE 0.9% 1000ML 1,000 ML IV ONE (10:56)
[2020-09-21] MEDS ORDERED: ACETAMINOPHEN 1,000 MG/100 ML VIAL IV STA (10:56)
[2020-09-21 12:28] LABS: BUN Creatinine Ratio 37.9 (10-20); Calcium 7.5 mg/dl (8.5-10.1); Creatinine Clr Calc Pharmacy 140.7 ml/min
[2020-09-21 12:30] LABS: Albumin Globulin Ratio 1.1 (0.9-2); Bilirubin,Total 0.7 mg/dl (0.2-1); Globulin 2.7 gm/dl (2.5-4.0); Total Protein 5.7 gm/dl (6.4-8.2)
[2020-09-21 12:31] LABS: Basophils # (auto) 0.01 K/uL (0-0.2); Basophils % (auto) 0.2 %; Eosinophils # (auto) 0.06 K/uL (0-0.5); Eosinophils % (auto) 1.1 %; Hematocrit (blood only) 34.9 % (37-47); Hemoglobin 11.6 g/dL (12.0-16.0); Immature Granulocytes # (auto) 0.03 K/uL (0.00-0.02); Immature Granulocytes % (auto) 0.5 %; Lymphocytes # (auto) 1.65 K/uL (1.2-3.4); Mean Corpuscular Hemoglobin 29.9 pg (25-34); Mean Corpuscular Hgb Conc 33.2 g/dL (32-36); Mean Corpuscular Volume 89.9 fL (80-100); Monocytes # (auto) 0.33 K/uL (0.11-0.59); Neutrophils # (auto) 3.42 K/uL (1.4-6.5); Neutrophils % (auto) 62.2 %; Platelet Count 217 K/uL (130-400); RDW Standard Deviation 42.2 fL (36.4-46.3); Red Blood Count 3.88 M/uL (4.2-5.4)
[2020-09-21] MEDS ORDERED: OPTIRAY 320 100ml IV ONE (12:40)
--- NOTE | 2020-09-21 13:16 | CT Scan Report ---
CT SCAN OF THE ABDOMEN AND PELVIS WITH IV CONTRAST CLINICAL HISTORY: Right-sided hip and back pain. COMPARISON STUDY: Abdominal CT dated 11/15/2019. TECHNIQUE: Following the IV administration of 87 cc of Optiray 320, CT scan of the abdomen and pelvi s is performed from the lung bases to the proximal femora. Images are reviewed in the axial, sagittal , and coronal planes. IV contrast was administered without complication. A dose lowering technique wa s utilized adhering to the principles of ALARA. The examination is degraded by metallic spinal hardwa re in the lumbar spine and right hip. CT DOSE: 496.84 mGy.cm FINDINGS: Lung bases: The heart is normal in size and without pericardial effusion. The lung bases are clear no ting dependent atelectasis. Liver: The contrast-enhanced liver is normal in size, contour, and attenuation. There is no intrahepa tic biliary ductal dilatation. The hepatic veins and portal veins are patent. Gallbladder: Unremarkable. Spleen: Normal in size and attenuation. Pancreas: Unremarkable. Adrenal glands: Bilateral adrenal adenomas measuring up to 2 cm are unchanged. Kidneys: The contrast enhanced kidneys demonstrate mild cortical atrophy and are without hydronephros is. Fullness of the renal collecting systems is likely due to bladder distention. The kidneys enhance symmetrically. Scattered cortical hypodensities are unchanged and measure up to 1.4 cm. These likely represent cysts but cannot be definitely characterized due to streak artifact and the presence of IV contrast. Abdominal vasculature: The abdominal aorta is normal in course and caliber noting moderate atheroscle rotic calcification. Bowel: The upstream small bowel loops are mildly distended and fluid-filled measuring up to 4.2 cm in diameter. Scattered air-fluid levels are noted. The largest dilated loop is seen in the left lower q uadrant on image #260. The small bowel nearly distal to this is relatively decompressed and appears t hick walled. This is best seen on image #256. There is no pneumatosis intestinalis or portal venous g as. The appendix is not visualized. Peritoneum: There is no intraperitoneal free air. There is a small volume of pelvic ascites. Lymphadenopathy: None. Pelvic viscera: The bladder is distended but otherwise normal in appearance. The uterus and adnexa ar e normal as visualized. A surgical clip metallic foreign body is noted in the region of the vagina. Skeletal structures: The skeletal structures are osteopenic. Spondylotic changes noted in the lumbar spine with postoperative change from L2 -L5 spinal fusion. No lytic or blastic lesions are seen. Inte rtrochanteric and intramedullary nails are present in the right proximal femur. There are chronic/hea led bilateral pubic ring fractures. IMPRESSION: 1. The proximal small bowel loops are mildly distended and fluid-filled with scattered air-fluid leve ls. The distal small bowel is decompressed, and this likely represents a low-grade/developing bowel o bstruction. 2. Mildly thick-walled loops of small bowel are suggested below the dilated loops and this may repres ent a nonspecific enteritis. 3. There is a small volume of pelvic ascites, likely reactive. 4. Bladder distention. 5. Additional findings as above. ACT 112: Negative or not required by law. Electronically signed by: Yaniv Hutchins M.D. 09/21/2020 1:15 PM
[2020-09-21] MEDS ORDERED: MoRPHine SULFATE 2 MG/ML CARP IV STA (14:01)
[2020-09-21 15:13] LABS: Appearance Urine Clear (Clear); Bilirubin Urine Negative (Negative); Blood Urine Negative (Negative); Color Urine Yellow; Glucose Urine UA Negative (Negative); Ketones Urine Negative (Negative); Leukocyte Esterase Urine Negative (Negative); Nitrite Urine Negative (Negative); Protein Urine Negative (Negative); Specific Gravity Urine 1.025 (1.000-1.030); Urobilinogen Urine Negative (Negative); pH Urine 5.5 (4.5-7.5)
[2020-09-21 15:15] LABS: Influenza A virus by PCR Negative (Neg); Influenza B virus by PCR Negative (Neg); RSV by PCR Negative (Neg); SARS CoV2 RNA(COVID-19) InHosp NEGATIVE (Negative)
--- NOTE | 2020-09-21 17:14 | Emergency Department Note ---
Impression & Plan Neurogenic claudication due to lumbar spinal stenosis, Intractable back pain, Acute right hip pain ED Provider Note NAME: ANGELES BRANTLEY AGE: 70 SEX: F ARRIVES VIA: Ambulance INFORMANT: Patient, ED PROVIDER(S): Caleb Ramirez MD CHIEF COMPLAINT: Right hip pain PLAN: Disposition: Admit MEDICAL DECISION MAKING: The patient is a pleasant 70-year-old woman with a past medical history of lumbar spinal stenosis with associated neurogenic claudication, history of urinary incontinence requiring self catheterization, presents to the emergency department with symptoms of right hip and lower back pain which occurred this morning when she reports feeling a crack in her hip when she went to get up out of bed and fell backwards into the bed and has been unable to walk due to the pain. Otherwise she denies any loss of bowel control or weakness in her legs. Her need for self straight catheterization is chronic and unchanged. Prior today she denies any fevers, chills, cough, congestion, GI or symptoms. She reports it has been a couple days since her last bowel movement but denies any abdominal pain or vomiting. On arrival patient is uncomfortable no acute distress, afebrile stable vital signs. She has pain with limited range of motion of the right hip with mild tenderness on palpation of the right lateral aspect of the hip and right lower lumbar region. There is no bony crepitus. Patient's abdomen is benign. Initial evaluation was conservative with plain film which was unremarkable and did not provide information to explain the patient's severe pain. Thus, blood work and CT of the abdomen pelvis was performed. WBC and platelets within normal limits. H/H similar to prior. Chemistry without metabolic acidosis. Electrolytes and LFTs unremarkable. UA without convincing evidence of infection. COVID-19 PCR negative. Influenza and RSV PCR also negative. CT of the abdomen pelvis was performed and demonstrates suspicion for possible developing bowel obstruction however this does not correlate with the patient's presentation or exam. Upon reevaluation the patient did have some lower abdominal discomfort but this was related to needing to have a straight cath. Upon reevaluation following her straight cath the patient's abdominal exam continued to be benign. However she did report persistence of her right hip and back pain despite receiving morphine. Thus, given the patient intractable pain which is suspected to be related to a flare of her chronic lumbar pain and neurogenic claudication reasonable to admit the patient for further management. Abdominal exam can also be monitored given CT findings. Patient agrees with this. Case was d/w Dr. [place] [facility] [place] who will evaluate the patient for admi ssion. Triage Nursing notes reviewed and agree them. Additional history obtained from Prior medical records reviewed Vital Signs: reviewed and remarkable for no significant abnormalities Differential diagnosis: Fracture, subluxation, dislocation, contusion, ligamentous injury, neurovascular, compartment syndrome, rhabdomyolysis, as well as other pathologies. ER treatment provided: See below. Diagnostics interpreted by me: Cardiac Monitoring: An order for continuous cardiac monitoring was placed and demonstrated NSR, 64 bpm, no ectopy. Laboratory studies: See below Imaging studies: See below Consultation(s): Case was d/w Dr. [place] [facility] [place] who will evaluate the patient for admission. HPI: The patient is a pleasant 70-year-old woman with a past medical history of lumbar spinal stenosis with associated neurogenic claudication, history of urinary incontinence requiring self catheterization, presents to the emergency department with symptoms of right hip and lower back pain which occurred this morning when she reports feeling a crack in her hip when she went to get up out of bed and fell backwards into the bed and has been unable to walk due to the pain. Otherwise she denies any loss of bowel control or weakness in her legs. Her need for self straight catheterization is chronic and unchanged. Prior today she denies any fevers, chills, cough, congestion, GI or symptoms. She reports it has been a couple days since her last bowel movement but denies any abdominal pain or vomiting. ROS: See above HPI for pertinent positives & negatives. A total of 10 systems reviewed and were otherwise negative. PAST MEDICAL HISTORY:See Below PAST SURGICAL HISTORY:See Below FAMILY HISTORY:See Below SOCIAL HISTORY:See Below HOME MEDICATIONS:See Below ALLERGIES:See Below VITALS:See Below PHYSICAL EXAMINATION: GENERAL: Awake, alert, uncomfortable-appearing, in no distress HENT: Normocephalic, atraumatic. Oropharynx with dry mucous membranes and otherwise unremarkable. EYES: Normal conjunctiva. Sclera non-icteric. NECK: Supple. No nuchal rigidity. FROM. No JVD. RESPIRATORY: Clear to auscultation. CARDIAC: Regular rate, normal rhythm. Extremities warm and well perfused. Pulses equal. ABDOMEN: Soft, non-distended. No tenderness to palpation. No rebound or guarding. No masses. RECTAL: Deferred. MUSCULOSKELETAL: Chest examination reveals no tenderness. The back is symmetrical on inspection without obvious abnormality. There is no CVA tenderness to palpation. No joint edema. Mild right lower lumbar and right lateral hip tenderness to palpation. Right hip with limited active and passive ROM 2/2 pain. No gross deformity or shortening. Distal PMS intact. LOWER EXTREMITIES: Calves are equal size bilaterally and non-tender. No edema. No discoloration. NEURO: Normal sensorium. No sensory or motor deficits noted. SKIN: No rash or jaundice noted. Caleb Ramirez MD Past Med/Surg History Medical History (Updated 09/21/20 @ 22:54 by Caleb Ramirez MD) Anxiety Bipolar disorder Cancer Degenerative disc disease Depression Encounter for pre-operative examination History of cervical cancer RADIATION, CHEMO AND RADI IMPLANT 1989 History of chemotherapy Incontinence Lumbar stenosis (01/07/14) Neurogenic claudication due to lumbar spinal stenosis Neuropathy Osteoarthritis Osteoporosis Pelvic fracture Vitamin B12 deficiency Surgical History Fusion of spine LUMBAR 2013, MAC 3, ETT 7.0, no issues H/O colonoscopy History of laparotomy History of total knee replacement BILATERAL S/P rotator cuff repair Status post hip surgery Family History Father Prostate cancer Diabetes Sister Diabetes Brother Diabetes Mother Dementia Other Breast cancer Social History Smoking Status: Never smoker Second Hand Exposure: No; Hx Alcohol Use: Yes Alcohol type: beer Hx Substance Use: No Preferred Language: Qatari Communication Ability: Effective Visual Impairment: No Limitations 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: No Beliefs That Will Affect Care: None marital status: Current Living Situation: Spouse Current Living Situation Comment: lives with ex- How many Children do You have: 3 Feels Safe at Home: Yes Assistive Devices: Cane and Glasses Allergies Allergies Allergy/AdvReac Type Severity Reaction Status Date / Time No Known Drug Allergies Allergy Unknown NONE Verified 09/21/20 08:36 Home Meds Home Medications Medication Instructions Recorded Confirmed cholecalciferol (vitamin D3) 1,000 unit PO QAM 04/03/18 09/21/20 lamotrigine 200 mg PO QAM 04/03/18 09/21/20 sertraline 100 mg PO QAM 04/03/18 09/21/20 vitamin B complex 1 tab PO QAM 11/03/18 09/21/20 cyanocobalamin (vitamin B-12) 1,000 mcg SUBCUT UD 04/07/19 09/21/20 gabapentin 1,200 mg PO TID 04/07/19 09/21/20 denosumab [Prolia] 60 mg SUBCUT DIRECTED 09/21/20 09/21/20 multivitamin 1 tab PO DAILY 09/21/20 09/21/20 Results & Data (ED) Vital Signs Vital Signs - 24 hr 09/21/20 08:05 09/21/20 09:38 09/21/20 14:07 Temperature 36.5 C Temperature Source Oral Pulse Rate 67 Pulse Rate [Apical] 63 66 Pulse Rate [Left Finger] Pulse Rhythm Regular Pulse Rhythm [Apical] Regular Pulse Rhythm [Left Finger] Respiratory Rate 16 18 Respiratory Effort / Characteristics Non-Labored Spontaneous Respiratory Depth Normal Respiratory Pattern Regular Blood Pressure 143/61 H Blood Pressure [Right Arm] 143/61 H 126/58 L Blood Pressure Mean 88 Blood Pressure Mean [Right Arm] 88 80 Blood Pressure Position Lying Blood Pressure Position [Right Arm] Lying Pulse Oximetry 95 98 98 Oxygen Delivery Method Room Air Room Air Room Air Sepsis Recent Fever Within 48 Hours No Sepsis New/Unexplained Change in Mental Status N/A Sepsis Action Taken by Nursing No Action Required 09/21/20 14:17 09/21/20 16:00 Temperature Temperature Source Pulse Rate Pulse Rate [Apical] Pulse Rate [Left Finger] 62 67 Pulse Rhythm Pulse Rhythm [Apical] Pulse Rhythm [Left Finger] Regular Regular Respiratory Rate 18 18 Respiratory Effort / Characteristics Non-Labored Spontaneous Non-Labored Spontaneous Respiratory Depth Normal Normal Respiratory Pattern Blood Pressure Blood Pressure [Right Arm] 138/70 129/58 L Blood Pressure Mean Blood Pressure Mean [Right Arm] 92 81 Blood Pressure Position Blood Pressure Position [Right Arm] Pulse Oximetry 96 93 Oxygen Delivery Method Room Air Room Air Sepsis Recent Fever Within 48 Hours Sepsis New/Unexplained Change in Mental Status Sepsis Action Taken by Nursing Laboratory Data Attestation: I reviewed the patient's lab results. Result diagrams: 09/21/20 11:53 09/21/20 11:53 Lab Results 09/21/20 09/21/20 Range/Units 11:53 11:53 WBC 5.50 (4.8-10.8) K/uL RBC 3.88 L (4.2-5.4) M/uL Hgb 11.6 L (12.0-16.0) g/dL Hct 34.9 L (37-47) % MCV 89.9 (80-100) fL MCH 29.9 (25-34) pg MCHC 33.2 (32-36) g/dL RDW Std Deviation 42.2 (36.4-46.3) fL RDW Coeff of Liliam 13.0 (11.5-14.5) % Plt Count 217 (130-400) K/uL MPV 10.0 (7.4-10.4) fL Immature Gran % (Auto) 0.5 % Neut % (Auto) 62.2 % Lymph % (Auto) 30.0 % [place] % (Auto) 6.0 % Eos % (Auto) 1.1 % Baso % (Auto) 0.2 % Neut # (Auto) 3.42 (1.4-6.5) K/uL Lymph # (Auto) 1.65 (1.2-3.4) K/uL [place] # (Auto) 0.33 (0.11-0.59) K/uL Eos # (Auto) 0.06 (0-0.5) K/uL Baso # (Auto) 0.01 (0-0.2) K/uL Immature Gran # (Auto) 0.03 H (0.00-0.02) K/uL Sodium 144 (136-145) mmol/L Potassium 4.0 (3.5-5.1) mmol/L Chloride 116 H (98-107) mmol/L Carbon Dioxide 26 (21-32) mmol/L Anion Gap 2.0 L (3-11) BUN 15 (7-18) mg/dl Creatinine 0.40 L (0.6-1.2) mg/dl Est Cr Clr Drug Dosing 140.7 ml/min Est GFR ( Amer) 124.0 Est GFR (Non-Af Amer) 107.0 BUN/Creatinine Ratio 37.9 H (10-20) Glucose 85 (70-99) mg/dl Calcium 7.5 L (8.5-10.1) mg/dl Total Bilirubin 0.7 (0.2-1) mg/dl AST 7 L (15-37) U/L ALT 16 (12-78) U/L Alkaline Phosphatase 50 (45-117) U/L Total Protein 5.7 L (6.4-8.2) gm/dl Albumin 3.0 L (3.4-5.0) gm/dl Globulin 2.7 (2.5-4.0) gm/dl Albumin/Globulin Ratio 1.1 (0.9-2) Lipase 55 L (73-393) U/L Administered Medications Gabapentin (Gabapentin 600 Mg Tab) 1,200 mg PO TID JN Stop: 10/21/20 20:59 Last Admin: 09/21/20 20:01 Dose: 1,200 mg Documented by: [id number] Lactated Ringer's (Lr) 1,000 mls @ 80 mls/hr IV .[id number] JN Stop: 10/21/20 18:27 Last Admin: 09/21/20 18:49 Dose: 80 mls/hr Documented by: [id number] Morphine Sulfate (Morphine Sulfate 2 Mg/Ml Carp) 2 mg IV Q4H PRN PRN Reason: Pain Stop: 10/05/20 18:27 Last Admin: 09/21/20 19:07 Dose: 2 mg Documented by: [id number] Discontinued Medications Acetaminophen (Ofirmev) 1,000 mg in 100 mls @ 400 mls/hr IV NOW STA Stop: 09/21/20 11:10 Last Infusion: 09/21/20 11:27 Dose: 0 mls/hr Documented by: [id number] Admin: 09/21/20 11:12 Dose: 400 mls/hr Documented by: [id number] Sodium Chloride (Nss 1000ml) 1,000 mls @ 999 mls/hr IV .[id number] ONE Stop: 09/21/20 11:56 Last Infusion: 09/21/20 12:13 Dose: 0 mls/hr Documented by: [id number] Admin: 09/21/20 11:12 Dose: 999 mls/hr Documented by: [id number] Ioversol (Ioversol 100ml) 87 ml IV ONCE ONE Stop: 09/21/20 12:41 Last Admin: 09/21/20 12:41 Dose: 87 ml Documented by: [id number] Morphine Sulfate (Morphine Sulfate 10 Mg/Ml Carp/Vial) 4 mg IM NOW STA Stop: 09/21/20 09:22 Last Admin: 09/21/20 09:32 Dose: 4 mg Documented by: [id number] Morphine Sulfate (Morphine Sulfate 2 Mg/Ml Carp) 2 mg IV NOW STA Stop: 09/21/20 14:02 Last Admin: 09/21/20 15:20 Dose: 2 mg Documented by: [id number] Imaging Data Radiologist's Impression: Abdomen/Pelvis CT 09/21/20 10:56 CT SCAN OF THE ABDOMEN AND PELVIS WITH IV CONTRAST CLINICAL HISTORY: Right-sided hip and back pain. COMPARISON STUDY: Abdominal CT dated 11/15/2019. TECHNIQUE: Following the IV administration of 87 cc of Optiray 320, CT scan of the abdomen and pelvis is performed from the lung bases to the proximal femora. Images are reviewed in the axial, sagittal, and coronal planes. IV contrast was administered without complication. A dose lowering technique was utilized adhering to the principles of ALARA. The examination is degraded by metallic spinal hardware in the lumbar spine and right hip. CT DOSE: 496.84 mGy.cm FINDINGS: Lung bases: The heart is normal in size and without pericardial effusion. The l anisha bases are clear noting dependent atelectasis. Liver: The contrast-enhanced liver is normal in size, contour, and attenuation. There is no intrahepatic biliary ductal dilatation. The hepatic veins and portal veins are patent. Gallbladder: Unremarkable. Spleen: Normal in size and attenuation. Pancreas: Unremarkable. Adrenal glands: Bilateral adrenal adenomas measuring up to 2 cm are unchanged. Kidneys: The contrast enhanced kidneys demonstrate mild cortical atrophy and are without hydronephrosis. Fullness of the renal collecting systems is likely due to bladder distention. The kidneys enhance symmetrically. Scattered cortical hypodensities are unchanged and measure up to 1.4 cm. These likely represent cysts but cannot be definitely characterized due to streak artifact and the presence of IV contrast. Abdominal vasculature: The abdominal aorta is normal in course and caliber noting moderate atherosclerotic calcification. Bowel: The upstream small bowel loops are mildly distended and fluid-filled measuring up to 4.2 cm in diameter. Scattered air-fluid levels are noted. The la rgest dilated loop is seen in the left lower quadrant on image #260. The small bowel nearly distal to this is relatively decompressed and appears thick walled. This is best seen on image #256. There is no pneumatosis intestinalis or portal venous gas. The appendix is not visualized. Peritoneum: There is no intraperitoneal free air. There is a small volume of pelvic ascites. Lymphadenopathy: None. Pelvic viscera: The bladder is distended but otherwise normal in appearance. The uterus and adnexa are normal as visualized. A surgical clip metallic foreign body is noted in the region of the vagina. Skeletal structures: The skeletal structures are osteopenic. Spondylotic changes noted in the lumbar spine with postoperative change from L2 -L5 spinal fusion. No lytic or blastic lesions are seen. Intertrochanteric and intramedullary nails are present in the right proximal femur. There are chronic/healed bilateral pubic ring fractures. IMPRESSION: 1. The proximal small bowel loops are mildly distended and fluid-filled with scattered air-fluid levels. The distal small bowel is decompressed, and this likely represents a low-grade/developing bowel obstruction. 2. Mildly thick-walled loops of small bowel are suggested below the dilated loops and this may represent a nonspecific enteritis. 3. There is a small volume of pelvic ascites, likely reactive. 4. Bladder distention. 5. Additional findings as above. ACT 112: Negative or not required by law. Electronically signed by: Yaniv Hutchins M.D. 09/21/2020 1:15 PM Discharge Plan Visit Data Chief Complaint: Hip Pain ED Provider: Caleb Ramirez Discharge Problem: Neurogenic claudication due to lumbar spinal stenosis, Intractable back pain, Acute right hip pain Patient Disposition: Admitted As Inpatient Discharge Instructions Interventions: ED Discharge Assessment Last Done: 09/21/20 17:52
--- NOTE | 2020-09-21 18:05 | History & Physical Report ---
Date of Service September 21, 2020 Assessment & Plan (1) Mixed incontinence urge and stress: Mikala Dorman is a 70 year old woman with past medical history of cervical cancer, status post surgery and extensive pelvic radiation, lumbar stenosis s/p fusion of spine in 2013, hip fracture s/p repair about one year ago at [place], Bilateral knee replacements, bipolar d/o and restless leg syndrome who is here today with severe hip pain and evidence of SBO on CT scan Hip pain Patient with severe hip pain on right side, s/p repair in [place] about a year ago Given audible and palpable crack as soon as weight bearing concern for hardware failure Will further evaluate with MRI of hip Given patient also with hardware in lumbar spine after fusion in 2013 and significant point tenderness at L3 will also check lumbar spine MRI Ortho consulted Tylenol and Morphine for pain NPO at midnight SBO Appears to be chronic usually manages outpatient Likely secondary to her radiation therapy Not bothering her at moment, sounds like she may have had more severe symptoms this weekend and it is resolving Will allow clear liquid diet, but NPO at midnight until MRI's reviewed BIpolar d/o Continue home sertraline and lamotrigine Restless leg syndrome Continue home gabapentin 1200 mg TID DVT PPx: Lovenox F/E/N: CLear liquid diet, npo at midnight, LR @90 mls/hour Dispo: Admit pending MRI and ortho evaluation Full COde (2) Depression: (3) Lumbar stenosis: (4) Pelvic fracture: (5) Hip pain: (6) Back pain: (7) Small bowel obstruction: History of Present Illness Chief Complaint: Hip pain Primary Care Provider: Glenda Lassiter DO Mikala Dorman is a 70 year old woman with past medical history significant for cervical cancer stage IV removed and extensive radiation therapy to the pelvis, bipolar, restless leg syndrome, and hip fracture one year ago. [place] in her usual state of health this morning swung her legs around the bed no problem went to stand up. As soon as she bore weight through her right hip she both felt and heard a loud crack. Fell back onto the bed. Pain radiating from hip down the first part of her leg and down into her groin area. Pain is sharp and severe, she was able to ambulate poorly with two canes at home and trying not to bear too much weight on right leg. She felt extremely uncomfortable bearing weight, extremely uncomfortable sitting and lying as well. Called her who felt that he could not safely get her in to the hospital so they called 911 who brought her in by ambulance and gave her 75 mcg of fentanyl. She was standing with all weight on the left leg when she was brought in. She has received morphine x2 in ED and pain is under better control now. On arrival to ED she was found to have vital signs WNL, labwork significant for mild anemia, consistent with last check in November. X ray showing no acute fracture, CT abdomen pelvis notable for mild small bowel obstruction. Urinalysis negative. Patient now complaining of hunger and hip pain that had been severe but she had recently received morphine. She tells me she gets SBO's not uncommonly and usually rides them out at home. She says it has beent his way ever since her radiation therapy to her pelvis. Notably this past weekend she had nausea and vomiting several episodes mostly clear liquid vomiting last episode was Saturday night. She has had loose bowel movements last one two days ago, last meal was last night which she tolerated well. No abdominal pain nausea, or vomiting at present. She also has a history of spinal surgery by Dr. Lassiter and bilateral knee replacements by Dr. Titus. Has some back pain which she tells me is chronic and unchanged and denies knee pain. Has been staying well hydrated she tells me. Non smoker, occasional alcohol, averages three drinks per week. No other substance use. Lives with . FUll code Allergies Allergy/AdvReac Type Severity Reaction Status Date / Time No Known Drug Allergies Allergy Unknown NONE Verified 09/21/20 08:36 Home Medications Medication Instructions Recorded Confirmed Type cholecalciferol (vitamin D3) 1,000 unit PO QAM 04/03/18 09/21/20 History lamotrigine 200 mg PO QAM 04/03/18 09/21/20 History sertraline 100 mg PO QAM 04/03/18 09/21/20 History vitamin B complex 1 tab PO QAM 11/03/18 09/21/20 History cyanocobalamin (vitamin B-12) 1,000 mcg SUBCUT UD 04/07/19 09/21/20 History gabapentin 1,200 mg PO TID 04/07/19 09/21/20 History denosumab [Prolia] 60 mg SUBCUT DIRECTED 09/21/20 09/21/20 History multivitamin 1 tab PO DAILY 09/21/20 09/21/20 History Past Med/Surg History Medical History (Updated 09/21/20 @ 18:31 by Konstantin Torres MD) Anxiety Bipolar disorder Cancer Degenerative disc disease Depression Encounter for pre-operative examination History of cervical cancer RADIATION, CHEMO AND RADI IMPLANT 1989 History of chemotherapy Incontinence Lumbar stenosis (01/07/14) Neurogenic claudication due to lumbar spinal stenosis Neuropathy Osteoarthritis Osteoporosis Pelvic fracture Vitamin B12 deficiency Surgical History Fusion of spine LUMBAR 2013, MAC 3, ETT 7.0, no issues H/O colonoscopy History of laparotomy History of total knee replacement BILATERAL S/P rotator cuff repair Status post hip surgery Family History Father Prostate cancer Diabetes Sister Diabetes Brother Diabetes Mother Dementia Other Breast cancer Social History Smoking Status: Never smoker Second Hand Exposure: No; Hx Alcohol Use: Yes Alcohol type: beer Hx Substance Use: No Preferred Language: Ukrainian Communication Ability: Effective Visual Impairment: No 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 Beliefs That Will Affect Care: None marital status: Current Living Situation: Spouse Current Living Situation Comment: lives with ex- How many Children do You have: 3 Feels Safe at Home: Yes Assistive Devices: Cane and Glasses Review of Systems Review of Systems: All systems reviewed & are unremarkable except as noted in HPI & below Physical Exam Physical Exam: Constitutional: Well appearing woman resting in bed in no apparent distress conversing easily Eyes: pupils equal round and reactive to light and accomodation EOMMI b/l ENMT: NAD Neck: Supple, no pain on motion or palpation Respiratory: REgular rate, no increased work of breathing lung sounds vesicular throughout Cardiovascular: REgular rate regular rhythm no murmurs rubs skips or gallops, peripheral pulses intact GI: Abdomen soft mildly tender throughout, sluggish bowel sounds, present after palpation but not aucultated before. Somewhat distended MSK: Leg length equal, exquisitely tender to right hip, iliac crest, greater trochanter all bony landmarks. Also reportedly tender to L3, no saddle anesthesia, strength intact, motion impaired in all degrees by pain rather than strength. Pain with passive and active range of motion. Log roll positive on right side. Results & Data Results & Data ([facility]) Vital Signs (Past 12 Hours) Vital Signs Temp Pulse Pulse Pulse Resp BP BP 09/21/20 16:00 67 18 129/58 L 09/21/20 14:17 62 18 138/70 09/21/20 14:07 09/21/20 09:38 66 18 126/58 L 09/21/20 08:05 36.5 C 67 63 16 143/61 H 143/61 H Pulse Ox 09/21/20 16:00 93 09/21/20 14:17 96 09/21/20 14:07 98 09/21/20 09:38 98 09/21/20 08:05 95 Code Status & VTE Plan VTE Prophylaxis Plan VTE Prophylaxis will be ordered: Yes Supervising Physician Co-Signing Physician Notes I personally examined the patient and verified all feliz points of history and exam, discussed case, and agree with decision making with Dr Torres Stood up this morning, abrupt onset of right hip pain that seems to radiate to the groin, fell back on her bed. Also now notes a bit of middle low back pain. No new bowel symptoms. Urine retention has been going on for about the last month maybe 6 weeks with self cathing, prior to that she had had a lot of incontinence and had believe she said Botox to the bladder. She was not able to stand on her right leg because of pain, but she is able to move it. Left leg is fine, she was actually able to weight-bear on the left leg. No saddle anesthesia. Vitals noted, in general she is awake and alert pleasant no distress until she starts to move, then she appears to be in visible pain from her back and her hip. Breathing unlabored no accessory muscle use good effort. Skin shows no rashes no pallor or icterus. Musculoskeletal shows bony point tenderness at approximately L3 (it was a little bit difficult to tell whether it was L3 or [id number] because she was in so much pain with movement from her hip and her back I had to reach under with her in the supine position to build a push on it. There was no crepitus. Right hip extremely tender to palpation at the greater trochanter. No sensory deficitsno saddle anesthesia sensory deficits, and no distal sensory deficits. Distally at the foot and ankle motor is 5 out of 5 and equal. Labs and x-rays reviewed. Reviewed images in the room with the patient as well. Hip painno fracture on x-ray, but highly suspicious of fracture given the bony tenderness abrupt onset of pain, etc. Discussed with Orthowe will get MRI for higher level imaging to eval for periprosthetic fracture. Ortho consult. Pain control. Further management based on higher level imaging. Back painsimilar level of concernpossible osteoporotic type fracture of L3MRI. Of note family expressed concern of cauda equina, but she does not appear to show an acute presentation similar to this. She does have urinary retentionbut there is been going on for a month, on the heels of having had longstanding incontinence, and a bladder procedure that may have contributed to the urinary retention. Her retention is worse today, but that certainly fits with the acuity of her pain. She does not really show any new bowel symptoms. She does not have saddle anesthesia. Of course, MRI spine will help evaluate for this as well, but discussed with patient that it seems fairly unlikely. Partial small bowel obstructionthis sounds to be something that she has happened very frequently. Supportive care. DVT prophylaxisLovenox Resident Activity Tracking Resident Involvement: Resident Care Provided Care Provided: Adult Hospital Medicine
--- NOTE | 2020-09-21 18:25 | Billing Data ---
Date of Service September 21, 2020 Coding Level of Care Code 26147 OBS Care - Level 3
[2020-09-21] MEDS ORDERED: ACETAMINOPHEN 325 MG TAB PO PRN (18:28)
[2020-09-21] MEDS ORDERED: ONDANSETRON INJ 2 MG/ML 2 ML VIAL IV PRN (18:28)
[2020-09-21] MEDS: LACTATED RINGER'S 1,000 ML IV SCH (18:49)
[2020-09-21] MEDS: MoRPHine SULFATE 2 MG/ML CARP IV PRN ×2 (19:07→23:59)
[2020-09-21] MEDS: GABAPENTIN 600 MG TAB PO SCH (20:01)
[2020-09-22 07:14] LABS: Mean Corpuscular Hgb Conc 33.4 g/dL (32-36); Mean Platelet Volume 10.4 fL (7.4-10.4); Platelet Count 220 K/uL (130-400)
[2020-09-22] MEDS: MoRPHine SULFATE 2 MG/ML CARP IV PRN ×2 (07:44→13:34)
[2020-09-22 07:46] LABS: Basophils # (auto) 0.02 K/uL (0-0.2); Basophils % (auto) 0.4 %; Eosinophils # (auto) 0.13 K/uL (0-0.5); Eosinophils % (auto) 2.8 %; Hematocrit (blood only) 34.8 % (37-47); Hemoglobin 11.7 g/dL (12.0-16.0); Immature Granulocytes # (auto) 0.01 K/uL (0.00-0.02); Immature Granulocytes % (auto) 0.2 %; Lymphocytes # (auto) 1.48 K/uL (1.2-3.4); Lymphocytes % (auto) 31.6 %; Mean Corpuscular Hemoglobin 30.2 pg (25-34); Mean Corpuscular Volume 89.7 fL (80-100); Monocytes # (auto) 0.44 K/uL (0.11-0.59); Monocytes % (auto) 9.4 %; Neutrophils % (auto) 55.6 %; RDW Standard Deviation 42.4 fL (36.4-46.3); Red Blood Count 3.88 M/uL (4.2-5.4); White Blood Count 4.68 K/uL (4.8-10.8)
[2020-09-22 07:48] LABS: BUN Creatinine Ratio 20.3 (10-20); Calcium 7.9 mg/dl (8.5-10.1); Creatinine Clr Calc Pharmacy 131.2 ml/min; Est GFR (African American) 117.6; Est GFR (Non-African American) 101.5; Potassium 3.6 mmol/L (3.5-5.1)
[2020-09-22] MEDS: LACTATED RINGER'S 1,000 ML IV SCH ×2 (08:09→20:10)
[2020-09-22] MEDS: ENOXAPARIN INJ 40 MG/0.4 ML SYR SQ SCH (08:11)
[2020-09-22] MEDS: GABAPENTIN 600 MG TAB PO SCH ×3 (08:11→20:11)
[2020-09-22] MEDS: VITAMIN B COMPLEX TAB PO SCH (08:11)
[2020-09-22] MEDS: CHOLECALCIFEROL 1,000 UNITS 25 MCG TAB PO SCH (08:11)
[2020-09-22] MEDS: SERTRALINE HCL 100 MG TABLET PO SCH (08:11)
[2020-09-22] MEDS: MULTIVITAMIN TAB PO SCH (08:11)
[2020-09-22] MEDS: lamoTRIgine 100 MG TAB PO SCH (08:11)
--- NOTE | 2020-09-22 08:24 | Magnetic Resonance Report ---
MR hip RT wo con CLINICAL HISTORY: RIght hip pain and pop s/p right hip repair one yr COMPARISON STUDY: Pelvis and right hip radiographs September 21, 2020 and pelvis radiograph January 17 018. TECHNIQUE: Utilizing a 1.5 Anneliese magnet and dedicated coil, multiplanar, multiecho imaging of the rig ht hip was performed without intra-articular or intravenous contrast. FINDINGS: Note is made of postsurgical findings consistent with right femoral internal fixation with intertrochanteric nail and intramedullary daniela. Artifact from this hardware mildly compromises this ex am. There is no marrow edema to suggest acute fracture within the right hip. Alignment of the right h ip is anatomic. There is mild joint space narrowing and osteophytosis of the right hip consistent wit h osteoarthritis. There is no evidence for avascular necrosis. Trace right hip joint effusion is pres ent. The adjacent soft tissues are unremarkable. Healed fracture of the right inferior pubic ramus is noted. No hematoma adjacent to the right hip is noted. A small amount of fluid within the pelvis and mild small bowel dilatation is better depicted on the abdominal CT performed earlier today. There is trace signal within the bilateral abductor muscles, greater on the left. The acetabular labrum is escobar boptimally assessed on this examination. IMPRESSION: 1. No acute fracture within the right hip. 2. Status post internal fixation of the right femur with intertrochanteric nail and intramedullary ro d. 3. Mild right hip osteoarthritis. Trace right hip joint effusion. 4. Small amount of fluid within the pelvis and mild small bowel dilatation better depicted on CT of t he abdomen and pelvis performed earlier today. ACT 112: Negative or not required by law. Electronically signed by: Elmer Kevin M.D. 09/22/2020 8:23 AM
--- NOTE | 2020-09-22 08:26 | Magnetic Resonance Report ---
LUMBAR SPINE MRI HISTORY: L3 point tenderness after fall TECHNIQUE: Multiplanar multisequence MRI of the lumbar spine was performed without the use of contras t. COMPARISON: None. FINDINGS: For the purpose of the report the L5-S1 disc space will be located on axial image 27 of 30. L2-L5 posterior decompression fusion with pedicle screws and rods. The conus terminates at the L1 lev el. There is a small septated fluid collection at the laminectomy sites which measures 6.8 x 3.6 x 1. 4 cm. This favors a postoperative seroma. No associated mass effect along the thecal sac. There is escobar bcutaneous and deep soft tissue edema within the posterior lumbar region at the level of laminectomy sites. This is nonspecific but favors postoperative change. Moderate to severe disc space narrowing a t L1-L2 with associated endplate edema. This favors degenerative change. No loss of height to suggest a compression fracture. The visualized sacrum appears intact. The L5-S1 disc spaces preserved. L1-L2: Broad-based posterior disc bulge asymmetric to the right without significant central canal roger rowing due to the posterior decompression. There is severe right and mild left neural foraminal narro wing. L2-L3: No significant central canal narrowing due to the posterior decompression. There is moderate b ilateral neural foraminal narrowing. L3-L4: No significant central canal narrowing due to the posterior decompression. There is moderate r ight and mild left neural foraminal narrowing. L4-L5: Broad-based posterior disc bulge without significant central canal narrowing due to the vocal teacher ior decompression. There is mild right and moderate to severe left neural foraminal narrowing. L5-S1: There is a 12 x 7 mm synovial cyst extending from the left L5-S1 facet and displacing the left posterior thecal sac. This also displaces the transiting left S1 nerve root. No significant central canal narrowing. There is mild to moderate bilateral neural foraminal narrowing. IMPRESSION: 1. L2-L5 posterior decompression fusion with pedicle screws and rods. 2. A 6.8 x 3.2 x 1.4 cm septated fluid collection at the laminectomy sites. This favors a postoperati ve seroma. A pseudomeningocele or abscess is considered less likely but not entirely excluded. 3. A 12 x 7 mm synovial cyst at the L5-S1 facet which displaces the transiting left S1 nerve root. 4. Additional degenerative changes as described above. 5. No fracture or subluxation. ACT 112: Negative or not required by law. Electronically signed by: Clyde Sampson M.D. 09/22/2020 8:25 AM
--- NOTE | 2020-09-22 09:30 | Medical Student Progress Note ---
Date of Service September 22, 2020 Assessment & Plan (1) Mixed incontinence urge and stress: Mikala Dorman is a 70 year old woman with pmhx of cervical cancer (1989 s/p chemotherapy/radiation), lumbar stenosis s/p fusion of spine in 2013 due to fall, R hip fracture s/p repair, osteoarthritis, osteoporosis and restless leg syndrome who presented with severe R hip pain and evidence of SBO on CT scan R Hip pain - Patient with severe hip pain on right side with tenderness in L3-L4 paravertebral spine with suspicion of R hip hardware defect, mechanical hip pain, or septic arthritis. - 09/21 MRI hip: no acute fracture with trace R hip joint effusion. - 09/21 MRI LSP: septated fluid collection at laminectomy site (L2-L5). 12x7mm synovial cyst at L5-S1 facet which displaces the transiting L S1 nerve root. - per Ortho, possible bursitis given trace effusion. Ordered MRI pelvis. - Continue watchful waiting. If MRI pelvis negative, consider PT/OT. - Tylenol and Morphine for pain SBO - 09/21 MRI pelvis: low-grade small bowel obstruction - chronic and improving. - changed diet to clear liquid which she had tolerated the previous night Urinary Incontinence - Pt has had sxs for years and been self-cathing for last 4mo. - Currently has singh catheter. Urine is yellow. Bipolar DO - Continue home sertraline and lamotrigine Restless leg syndrome - Continue home gabapentin 1200 mg TID DVT PPx: Lovenox F/E/N: liquid diet Dispo: Med/Surg Full Code (2) Depression: (3) Lumbar stenosis: (4) Pelvic fracture: (5) Hip pain: (6) Back pain: (7) Small bowel obstruction: Admission and Anticipated Discharge Date Admission Date: September 21, 2020 Supervising Attestation I personally examined the patient and verified all feliz points of history and exam, discussed case, and agree with decision making with Flavia Honeycutt MS4 Subjective Pt doing fine. No overnight event. Tolerated liquid dinner last night with no N/V or abdominal pain. R hip pain same as yesterday - constant, piercing/stabbing pain from R buttock to R hip down to R lateral thigh. Reports low back pain that always been an aching pain, but now worse as it is tender back pain since yesterday. Review of Systems Constitutional: + weight gain ("30lbs" from eating during COVID); no fever, no chills and no sweats Respiratory: no cough and no dyspnea on exertion Cardiovascular: no chest pain Gastrointestinal: no abdominal pain, no nausea and no vomiting Musculoskeletal: as per Subjective / HPI Physical Exam Physical Exam: General: AOx3. Cooperative. NAD. Respiratory: b/l clear to auscultation. No wheeze or rales. Cardiovascular: regular rhythm and rate. No murmurs, rubs, or gallops Abd: no BS. Nontender and soft. MSK: Leg length equal. Tenderness to palpation in L3-L4 paravertebral to R iliac crest and R greater trochanteric. No saddle anesthesia. Pain with passive and active ROM. R straight leg test with pain in R hip with 30 degree. Light touch to legs, feet, and sole of feet intact. Symmetric 0/4 patellar or Achilles reflex. B/L ankle dorsiflexion, plantar flexion, inversion, and eversion intact. Results & Data ([facility]) Vital Signs (Past 12 Hours) Vital Signs Temp Pulse Resp BP Pulse Ox 09/22/20 07:29 36.7 C 64 16 131/75 92 09/21/20 23:39 36.8 C 59 L 18 124/68 92
--- NOTE | 2020-09-22 09:32 | Hospitalist Progress Note ---
Date of Service September 22, 2020 Assessment & Plan (1) Mixed incontinence urge and stress: Mikala Dorman is a 70 year old woman with past medical history of cervical cancer, status post surgery and extensive pelvic radiation, lumbar stenosis s/p fusion of spine in 2013, hip fracture s/p repair about one year ago at [place], Bilateral knee replacements, bipolar d/o and restless leg syndrome who was admitted for severe hip pain and evidence of SBO on CT scan. Hip pain Patient with severe hip pain on right side in context of audible/palpable "crack" with weight-bearing, MRI hip/MRI lumbar spine without fracture or damaged hardware (previous surgeries) - suspect piriformis syndrome (less likely septic arthritis but cannot r/o without arthrocentesis of small amount of fluid in right hip joint). - Ortho consulted - ordered MRI pelvis, recommends conservative management for now - Tylenol and Morphine for pain Small Bowel Obstruction Recent N/V this weekend but no current symptoms, SBO visualized on CT, appears to be chronic and usually managed as outpatient - suspect 2/2 radiation therapy. - advanced to clear liquid diet today, continue to advance as tolerated Bipolar Disorder - Continue home sertraline and lamotrigine Restless leg syndrome - Continue home gabapentin 1200 mg TID DVT PPx: Lovenox FEN/GI: Clear liquid diet, LR @ 80cc/hr Dispo: med/surg CODE STATUS: full code (2) Depression: (3) Lumbar stenosis: (4) Pelvic fracture: (5) Hip pain: (6) Back pain: (7) Small bowel obstruction: Admission and Anticipated Discharge Date Admission Date: September 21, 2020 Supervising Physician Co-Signing Physician Notes I personally examined the patient and verified all feliz points of history and exam, discussed case, and agree with decision making with Dr Boswell Ongoing pain. Maybe not quite as bad as before. Vitals noted, in general she is awake and alert pleasant no distress. When she moves it is slow and somewhat antalgic. She still has pain to palpation over about L3, as well as across her right SI joint and upper pelvic brim. She has less trochanteric pain. Right sided pelvic musculature in the region of piriformis is also high in tone, tender, decreased range of motioninhibitory pressure/LAS done gentlypatient tolerated well and noticed a degree of pain relief. Back and hip painagree with orthopedics that it seems to be an interplay of structural and biomechanical disease, await MRI pelvis to evaluate SI joint more thoroughly, but also with tight piriformis, biomechanical issues are likely culprit as well. PT/OT, pain control somatic dysfunction pelvis - OMT as above otherwise as above Subjective Required Morphine 2mg IV x2 overnight since coming up from ED - hip/back pain controlled with this. Tolerated clear liquid dinner without N/V/abdominal pain. This morning reports right sided back pain that "shoots" through her right hip and into her right leg to her knee. Denies h/o sciatica. Denies fever/chills, chest pain, SOB. Review of Systems Review of Systems: Pertinent positives and negatives mentioned in HPI. Physical Exam Physical Exam: General: A&Ox3. NAD. Cooperative. HEENT: Atraumatic, normocephalic. Pulm: CTAB A&P. -wheezes, -rales, -rhonchi. Symmetrical chest rise. No increase work of breathing. No respiratory distress. Cardiac: RRR, -mrg. Radial pulses intact and symmetrical. Abdominal: soft, non-tender, non-distended, BS x 4 MSK: TTP sacroiliac joint/piriformis muscle, tenderness radiates to patient's right knee on palpation, no TTP greater trochanter or iliac spine Results & Data Results & Data ([facility]) Vital Signs (Past 12 Hours) Vital Signs Temp Pulse Resp BP Pulse Ox 09/22/20 07:29 36.7 C 64 16 131/75 92 09/21/20 23:39 36.8 C 59 L 18 124/68 92 Resident Activity Tracking Resident Involvement: Resident Care Provided Care Provided: Adult Hospital Medicine
--- NOTE | 2020-09-22 11:35 | Orthopedic Consultation ---
Date of Consultation September 22, 2020 Assessment & Plan (1) Acute right hip pain: X-rays reviewed with Dr. Harper. No obvious fractures noted of the hip at this time. Trace joint effusion noted on MRI. With her tenderness over the trochanteric bursa, it is possible that she could have a bursitis secondary to the TFN nail however with the pain starting at the same time as her low back pain, this is less likely. Trace effusion in the hip joint itself but not alarming for infection. White blood cell count is normal and patient is remaining afebrile. Patient is being seen in conjunction with Dr. Lassiter from our spine team. Plans will be to order a full MRI pelvis at this time. N.p.o. status is discontinued and patient is started on diet. Patient to be reassessed by Dr. Harper later today. Supervising Physician Co-Signing Physician Notes Patient was seen and examined. I agree with NUNO Crawford's note as above. Overall, I think that the majority of this severe acute onset of right lower back and buttock pain is likely emanating from her right sacroiliac joint. She has multiple potential pain generators. She has previously had a lumbar spine fusion by Dr. Lassiter. She also had a right hip intertrochanteric fracture that was treated with long cephalomedullary nailing by [facility] orth[facility] in [place]. This was done about a year ago. She has had some tenderness to palpation over the lateral aspect of the upper hip and greater trochanter area over the past 2 months, but this is not nearly as severe and feels separate from this acute onset of pain that she has had over the past few days. She does also have a history of a pelvic fracture that was treated nonoperatively [address] scan of the pelvis shows old healed bilateral rami fractures. It also shows incongruity and diastases at the right sacroiliac joint. It is unclear if this is acute or chronic. We are ordering an MRI of the pelvis to try to evaluate this further. MRI of the lumbar spine only images the superior aspect of the SI joint, but does not show obvious acute injury there. Over the past 2 days, she had severe pain right around this right sacroiliac joint. She states that she felt a "crack", and had temporary difficulty with active motor function in her right lower leg; this has since resolved. She says that she feels like her pelvis will not support her, and really feels like the problem is emanating right and that SI joint area. I think she may have had disruption of that right sacroiliac joint during her previous pelvic fracture 2 years ago, and she is either developing some posttraumatic arthritis there or potentially attritional tearing of her remaining with SI ligaments. I discussed this further with Dr. Lassiter; he will evaluate her again tomorrow. Potential treatment options could possibly include diagnostic and hopefully therapeutic SI joint injection or potentially even sacroiliac fusion. In terms of her right lateral sided hip pain, I think this is likely related to mild prominence of the lag screw from the long gamma nail on the lateral aspect of the femur and irritating the overlying iliotibial band. It is minimally prominent, but if this is persistently bothersome to her, may require removal in the future. I think there is a much less of a problem for her, and we should focus on the more painful SI joint pain for now. There is no evidence of re current or periprosthetic fracture in this area, or hardware failure. History of Present Illness Reason for Consultation: Right hip and leg pain Attending Physician: Venkata Araiza, History of Present Illness Patient is a 70-year-old white female who was admitted last night for right lower extremity discomfort. Of note patient had undergone ORIF of a right hip fracture in [place] 1 year ago of which a right TFN has been placed. Patient states that she healed well from this and had no problems. Patient has a history of cervical cancer stage IV removed and extensive radiation therapy to the pelvis, bipolar, restless leg syndrome. She also states that she has a history of neuropathy of the lower extremities. She apparently was feeling her normal state of health yesterday when she got out of bed and placed weight on the right lower extremity she felt and heard a crack and had severe pain that radiated down her right lower extremity. She stated to me that she normally has numbness in her foot however when this happened, she had functional disability of the right foot at that time. She fell back onto the bed and was having then difficulty ambulating and putting weight on the right lower extremit y. She was brought to the hospital and was admitted under the hospitalist service. Currently she states that her pain starts at the low back and radiates down through the buttock and down the lateral aspect of the leg. She denies that shooting into her foot at this time. She states that her motor function of her foot has returned and she has no difficulty with that at this time. She states that her neuropathy of the foot is currently at what it normally is. She denies fevers, chills, nausea or vomiting. Denies shortness of breath, chest pain, lightheadedness. We have been asked to see her for her right lower extremity pain. Allergies Allergy/AdvReac Type Severity Reaction Status Date / Time No Known Drug Allergies Allergy Unknown NONE Verified 09/21/20 08:36 Home Medications Medication Instructions Recorded Confirmed Type cholecalciferol (vitamin D3) 1,000 unit PO QAM 04/03/18 09/21/20 History lamotrigine 200 mg PO QAM 04/03/18 09/21/20 History sertraline 100 mg PO QAM 04/03/18 09/21/20 History vitamin B complex 1 tab PO QAM 11/03/18 09/21/20 History cyanocobalamin (vitamin B-12) 1,000 mcg SUBCUT UD 04/07/19 09/21/20 History gabapentin 1,200 mg PO TID 04/07/19 09/21/20 History denosumab [Prolia] 60 mg SUBCUT DIRECTED 09/21/20 09/21/20 History multivitamin 1 tab PO DAILY 09/21/20 09/21/20 History Patient History Medical History Anxiety Bipolar disorder Cancer Degenerative disc disease Depression Encounter for pre-operative examination History of cervical cancer RADIATION, CHEMO AND RADI IMPLANT 1989 History of chemotherapy Incontinence Lumbar stenosis (01/07/14) Neurogenic claudication due to lumbar spinal stenosis Neuropathy Osteoarthritis Osteoporosis Pelvic fracture Vitamin B12 deficiency Surgical History Fusion of spine LUMBAR 2014, MAC 3, ETT 7.0, no issues H/O colonoscopy History of laparotomy History of total knee replacement BILATERAL S/P rotator cuff repair Status post hip surgery Family History Father Prostate cancer Diabetes Sister Diabetes Brother Diabetes Mother Dementia Other Breast cancer Social History Smoking Status: Never smoker Second Hand Exposure: No; Hx Alcohol Use: Yes Alcohol type: beer Hx Substance Use: No Preferred Language: Kuwaiti Communication Ability: Effective Visual Impairment: No Limitations 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 There is a well- healed incision of her right knee. Palpation of the right knee is nontender. She has good range of motion of her right ankle and toes at this time with good strength with dorsiflexion and plantarflexion. She does have some decrease sensation secondary to neuropathy. Thigh is soft and nontender until you get to approximately the lateral aspect of the thigh near the greater trochanter. She has point tenderness near the trochanteric bursa area. No swelling or erythema. She does have point tenderness on palpation of the low back near the SI joint. She states when pressing on this the pain does go down into the buttock and somewhat over the lateral thigh. Internal rotation of the hip has minimal discomfort. External rotation has increased discomfort. I can take her through gentle passive flexion and extension which the patient begins to grimace with pain states that the pain is at the low back and radiates down along the thigh. She states she does have some slight groin pain as well. Results & Data ([facility]) Vital Signs (Past 12 Hours) Vital Signs Temp Pulse Resp BP Pulse Ox 09/22/20 07:29 36.7 C 64 16 131/75 92 09/21/20 23:39 36.8 C 59 L 18 124/68 92 Laboratory Results Laboratory Results WBC 4.68 K/uL (4.8-10.8) L 09/22/20 06:41 RBC 3.88 M/uL (4.2-5.4) L 09/22/20 06:41 Hgb 11.7 g/dL (12.0-16.0) L 09/22/20 06:41 Hct 34.8 % (37-47) L 09/22/20 06:41 MCV 89.7 fL (80-100) 09/22/20 06:41 MCH 30.2 pg (25-34) 09/22/20 06:41 MCHC 33.4 g/dL (32-36) 09/22/20 06:41 RDW Std Deviation 42.4 fL (36.4-46.3) 09/22/20 06:41 RDW Coeff of Liliam 13.0 % (11.5-14.5) 09/22/20 06:41 Plt Count 220 K/uL (130-400) 09/22/20 06:41 MPV 10.4 fL (7.4-10.4) 09/22/20 06:41 Immature Gran % (Auto) 0.2 % 09/22/20 06:41 Neut % (Auto) 55.6 % 09/22/20 06:41 Lymph % (Auto) 31.6 % 09/22/20 06:41 [place] % (Auto) 9.4 % 09/22/20 06:41 Eos % (Auto) 2.8 % 09/22/20 06:41 Baso % (Auto) 0.4 % 09/22/20 06:41 Neut # (Auto) 2.60 K/uL (1.4-6.5) 09/22/20 06:41 Lymph # (Auto) 1.48 K/uL (1.2-3.4) 09/22/20 06:41 [place] # (Auto) 0.44 K/uL (0.11-0.59) 09/22/20 06:41 Eos # (Auto) 0.13 K/uL (0-0.5) 09/22/20 06:41 Baso # (Auto) 0.02 K/uL (0-0.2) 09/22/20 06:41 Immature Gran # (Auto) 0.01 K/uL (0.00-0.02) 09/22/20 06:41 Sodium 144 mmol/L (136-145) 09/22/20 06:41 Potassium 3.6 mmol/L (3.5-5.1) 09/22/20 06:41 Chloride 114 mmol/L (98-107) H 09/22/20 06:41 Carbon Dioxide 25 mmol/L (21-32) 09/22/20 06:41 Anion Gap 5.0 (3-11) 09/22/20 06:41 BUN 10 mg/dl (7-18) D 09/22/20 06:41 Creatinine 0.47 mg/dl (0.6-1.2) L 09/22/20 06:41 Est Cr Clr Drug Dosing 131.2 ml/min 09/22/20 06:41 Est GFR ( Amer) 117.6 09/22/20 06:41 Est GFR (Non-Af Amer) 101.5 09/22/20 06:41 BUN/Creatinine Ratio 20.3 (10-20) H 09/22/20 06:41 Glucose 87 mg/dl (70-99) 09/22/20 06:41 Calcium 7.9 mg/dl (8.5-10.1) L 09/22/20 06:41 Total Bilirubin 0.7 mg/dl (0.2-1) 09/21/20 11:53 AST 7 U/L (15-37) L 09/21/20 11:53 ALT 16 U/L (12-78) 09/21/20 11:53 Alkaline Phosphatase 50 U/L (45-117) 09/21/20 11:53 Total Protein 5.7 gm/dl (6.4-8.2) L 09/21/20 11:53 Albumin 3.0 gm/dl (3.4-5.0) L 09/21/20 11:53 Globulin 2.7 gm/dl (2.5-4.0) 09/21/20 11:53 Albumin/Globulin Ratio 1.1 (0.9-2) 09/21/20 11:53 Lipase 55 U/L (73-393) L 09/21/20 11:53 Urine Color Yellow 09/21/20 Unknown Urine Appearance Clear (Clear) 09/21/20 Unknown Urine pH 5.5 (4.5-7.5) 09/21/20 Unknown Ur Specific [place] 1.025 (1.000-1.030) 09/21/20 Unknown Urine Protein Negative (Negative) 09/21/20 Unknown Urine Glucose (UA) Negative (Negative) 09/21/20 Unknown Urine Ketones Negative (Negative) 09/21/20 Unknown Urine Blood Negative (Negative) 09/21/20 Unknown Urine Nitrite Negative (Negative) 09/21/20 Unknown Urine Bilirubin Negative (Negative) 09/21/20 Unknown Urine Urobilinogen Negative (Negative) 09/21/20 Unknown Ur Leukocyte Esterase Negative (Negative) 09/21/20 Unknown COVID-19 Eval Order CovFluRsv at [facility] 09/21/20 Unknown SARS-CoV-2 (PCR) NEGATIVE (Negative) 09/21/20 Unknown Influenza Type A (PCR) Negative (Neg) 09/21/20 Unknown Influenza Type B (PCR) Negative (Neg) 09/21/20 Unknown RSV (RT-PCR) Negative (Neg) 09/21/20 Unknown Impressions Hip/Pelvis X-Ray 09/21/20 09:21 XR hip RT 2V w pelvis HISTORY: 70 years-old Female pain, "felt a crack" acute pelvic and right hip pain COMPARISON: CT abdomen and pelvis 11/15/2019 TECHNIQUE: AP view of the pelvis with 2 views of the right hip FINDINGS: Demineralized appearance the bones. Partially imaged fusion hardware with discectomy changes of the lower lumbar spine. Surgical clips of the pelvis. Mild osteophyte is of the bilateral hips. Intratrochanteric nail with elongated medullary daniela of the right femur. No acute fracture or evidence of hardware loosening. Right knee total joint arthroplasty. IMPRESSION: No acute fracture. ACT 112: Negative or not required by law. The above report was generated using voice recognition software. It may contain grammatical, syntax or spelling errors. Electronically signed by: Avinash Ferrell M.D. 09/21/2020 9:53 AM Abdomen/Pelvis CT 09/21/20 10:56 CT SCAN OF THE ABDOMEN AND PELVIS WITH IV CONTRAST CLINICAL HISTORY: Right-sided hip and back pain. COMPARISON STUDY: Abdominal CT dated 11/15/2019. TECHNIQUE: Following the IV administration of 87 cc of Optiray 320, CT scan of the abdomen and pelvis is performed from the lung bases to the proximal femora. Images are reviewed in the axial, sagittal, and coronal planes. IV contrast was administered without complication. A dose lowering technique was utilized adhering to the principles of ALARA. The examination is degraded by metallic spinal hardware in the lumbar spine and right hip. CT DOSE: 496.84 mGy.cm FINDINGS: Lung bases: The heart is normal in size and without pericardial effusion. The lung bases are clear noting dependent atelectasis. Liver: The contrast-enhanced liver is normal in size, contour, and attenuation. There is no intrahepatic biliary ductal dilatation. The hepatic veins and portal veins are patent. Gallbladder: Unremarkable. Spleen: Normal in size and attenuation. Pancreas: Unremarkable. Adrenal glands: Bilateral adrenal adenomas measuring up to 2 cm are unchanged. Kidneys: The contrast enhanced kidneys demonstrate mild cortical atrophy and are without hydronephrosis. Fullness of the renal collecting systems is likely due to bladder distention. The kidneys enhance symmetrically. Scattered cortical hypodensities are unchanged and measure up to 1.4 cm. These likely represent cysts but cannot be definitely characterized due to streak artifact and the presence of IV contrast. Abdominal vasculature: The abdominal aorta is normal in course and caliber noting moderate atherosclerotic calcification. Bowel: The upstream small bowel loops are mildly distended and fluid-filled measuring up to 4.2 cm in diameter. Scattered air-fluid levels are noted. The largest dilated loop is seen in the left lower quadrant on image #260. The small bowel nearly distal to this is relatively decompressed and appears thick walled. This is best seen on image #256. There is no pneumatosis intestinalis or portal venous gas. The appendix is not visualized. Peritoneum: There is no intraperitoneal free air. There is a small volume of pelvic ascites. Lymphadenopathy: None. Pelvic viscera: The bladder is distended but otherwise normal in appearance. The uterus and adnexa are normal as visualized. A surgical clip metallic foreign body is noted in the region of the vagina. Skeletal structures: The skeletal structures are osteopenic. Spondylotic changes noted in the lumbar spine with postoperative change from L2 -L5 spinal fusion. No lytic or blastic lesions are seen. Intertrochanteric and intramedullary nails are present in the right proximal femur. There are chronic/healed bilateral pubic ring fractures. IMPRESSION: 1. The proximal small bowel loops are mildly distended and fluid-filled with scattered air-fluid levels. The distal small bowel is decompressed, and this likely represents a low-grade/developing bowel obstruction. 2. Mildly thick-walled loops of small bowel are suggested below the dilated loops and this may represent a nonspecific enteritis. 3. There is a small volume of pelvic ascites, likely reactive. 4. Bladder distention. 5. Additional findings as above. ACT 112: Negative or not required by law. Electronically signed by: Yaniv Hutchins M.D. 09/21/2020 1:15 PM Hip MRI 09/21/20 18:28 MR hip RT wo con CLINICAL HISTORY: RIght hip pain and pop s/p right hip repair one yr COMPARISON STUDY: Pelvis and right hip radiographs September 21, 2020 and pelvis radiograph January 17, 2018. TECHNIQUE: Utilizing a 1.5 Anneliese magnet and dedicated coil, multiplanar, multiecho imaging of the right hip was performed without intra-articular or intravenous contrast. FINDINGS: Note is made of postsurgical findings consistent with right femoral internal fixation with intertrochanteric nail and intramedullary daniela. Artifact from this hardware mildly compromises this exam. There is no marrow edema to escobar ggest acute fracture within the right hip. Alignment of the right hip is anatomic. There is mild joint space narrowing and osteophytosis of the right hip consistent with osteoarthritis. There is no evidence for avascular necrosis. Trace right hip joint effusion is present. The adjacent soft tissues are unremarkable. Healed fracture of the right inferior pubic ramus is noted. No hematoma adjacent to the right hip is noted. A small amount of fluid within the pelvis and mild small bowel dilatation is better depicted on the abdominal CT performed earlier today. There is trace signal within the bilateral abductor muscles, greater on the left. The acetabular labrum is suboptimally assessed on this examination. IMPRESSION: 1. No acute fracture within the right hip. 2. Status post internal fixation of the right femur with intertrochanteric nail and intramedullary daniela. 3. Mild right hip osteoarthritis. Trace right hip joint effusion. 4. Small amount of fluid within the pelvis and mild small bowel dilatation better depicted on CT of the abdomen and pelvis performed earlier today. ACT 112: Negative or not required by law. Electronically signed by: Elmer Kevin M.D. 09/22/2020 8:23 AM Lumbar Spine MRI 09/21/20 18:28 LUMBAR SPINE MRI HISTORY: L3 point tenderness after fall TECHNIQUE: Multiplanar multisequence MRI of the lumbar spine was performed without the use of contrast. COMPARISON: None. FINDINGS: For the purpose of the report the L5-S1 disc space will be located on axial image 27 of 30. L2-L5 posterior decompression fusion with pedicle screws and rods. The conus terminates at the L1 level. There is a small septated fluid collection at the laminectomy sites which measures 6.8 x 3.6 x 1.4 cm. This favors a postoperative seroma. No associated mass effect along the thecal sac. There is subcutaneous and deep soft tissue edema within the posterior lumbar region at the level of laminectomy sites. This is nonspecific but favors postoperative change. Moderate to severe disc space narrowing at L1-L2 with associated endplate edema. This favors degenerative change. No loss of height to suggest a compression fracture. The visualized sacrum appears intact. The L5-S1 disc spaces preserved. L1-L2: Broad-based posterior disc bulge asymmetric to the right without significant central canal narrowing due to the posterior decompression. There is severe right and mild left neural foraminal narrowing. L2-L3: No significant central canal narrowing due to the posterior decompression. There is moderate bilateral neural foraminal narrowing. L3-L4: No significant central canal narrowing due to the posterior decompression. There is moderate right and mild left neural foraminal narrowing. L4-L5: Broad-based posterior disc bulge without significant central canal narrowing due to the posterior decompression. There is mild right and moderate to severe left neural foraminal narrowing. L5-S1: There is a 12 x 7 mm synovial cyst extending from the left L5-S1 facet and displacing the left posterior thecal sac. This also displaces the transiting left S1 nerve root. No significant central canal narrowing. There is mild to moderate bilateral neural foraminal narrowing. IMPRESSION: 1. L2-L5 posterior decompression fusion with pedicle screws and rods. 2. A 6.8 x 3.2 x 1.4 cm septated fluid collection at the laminectomy sites. This favors a postoperative seroma. A pseudomeningocele or abscess is considered less likely but not entirely excluded. 3. A 12 x 7 mm synovial cyst at the L5-S1 facet which displaces the transiting left S1 nerve root. 4. Additional degenerative changes as described above. 5. No fracture or subluxation. ACT 112: Negative or not required by law. Electronically signed by: Clyde Sampson M.D. 09/22/2020 8:25 AM
--- NOTE | 2020-09-22 20:29 | Billing Data ---
Date of Service September 22, 2020 Coding Level of Care Code 95257 Subseq Hosp Care Lvl 3
--- NOTE | 2020-09-22 20:30 | Hospitalist Progress Note ---
Date of Service September 22, 2020 Assessment & Plan Admission and Anticipated Discharge Date Admission Date: September 21, 2020 Results & Data Results & Data ([facility]) Vital Signs (Past 12 Hours) Vital Signs Temp Pulse Resp BP Pulse Ox 09/22/20 15:07 98.4 F 67 16 119/66 91 PG Care Time/CCT Total # of Minutes Spent Total Time Spent with Patient: Total time spent is greater than 50% in coordination of care (as documented) at patient's floor/unit and/or counseling patient: Coding Level of Care Code None CPT Codes Musculoskeletal - Musculoskeletal: 10619 [address] Kelvin [address] 1-2 Body regions ([id number])
[2020-09-23 06:13] LABS: Basophils # (auto) 0.01 K/uL (0-0.2); Basophils % (auto) 0.2 %; Eosinophils # (auto) 0.18 K/uL (0-0.5); Eosinophils % (auto) 3.5 %; Hematocrit (blood only) 36.2 % (37-47); Hemoglobin 12.2 g/dL (12.0-16.0); Immature Granulocytes # (auto) 0.02 K/uL (0.00-0.02); Immature Granulocytes % (auto) 0.4 %; Lymphocytes # (auto) 1.36 K/uL (1.2-3.4); Lymphocytes % (auto) 26.7 %; Mean Corpuscular Hemoglobin 30.1 pg (25-34); Mean Corpuscular Hgb Conc 33.7 g/dL (32-36); Mean Corpuscular Volume 89.4 fL (80-100); Mean Platelet Volume 9.7 fL (7.4-10.4); Monocytes # (auto) 0.52 K/uL (0.11-0.59); Monocytes % (auto) 10.2 %; Neutrophils # (auto) 3.01 K/uL (1.4-6.5); Platelet Count 205 K/uL (130-400); RDW Coefficient of Variation 12.7 % (11.5-14.5); RDW Standard Deviation 41.4 fL (36.4-46.3); Red Blood Count 4.05 M/uL (4.2-5.4)
[2020-09-23 07:02] LABS: BUN Creatinine Ratio 15.2 (10-20); Creatinine Clr Calc Pharmacy 125.9 ml/min; Est GFR (Non-African American) 100.1; Potassium 3.7 mmol/L (3.5-5.1)
--- NOTE | 2020-09-23 08:39 | Magnetic Resonance Report ---
MR pelvis wo con HISTORY: Low back pain. Right hip pain. r/o sacral insufficiency fx/trauma TECHNIQUE: Multiplanar multisequence MRI of the pelvis was performed without contrast according to [facility] departmental protocol COMPARISON STUDY: Abdomen and pelvis CT 09/21/2020. FINDINGS: Motion artifact results in suboptimal evaluation of the pelvis. No acute fracture or disloc ation within the pelvis or hips. Specifically, no MR evidence for sacral insufficiency fractures. Pos terior fusion seen within the lower lumbar spine. Prior internal fixation of a right femoral intertro chanteric fracture. A Rowe catheter seen within the bladder. Trace pelvic free fluid. Mildly dilated fluid-filled loops of small bowel are again noted. This is better appreciated on the recent abdomen and pelvis CT. Moderate right and mild left hip osteoarthritis. Old, healed bilateral pubic ring frac tures. Trace asymmetric fluid and mild widening within the right sacroiliac joint. There are mild deg enerative changes within the bilateral sacroiliac joints. IMPRESSION: 1. No acute fracture or dislocation within the pelvis or hips. Specifically, no evidence for sacral i nsufficiency fracture. 2. Slight widening and trace fluid within the right sacroiliac joint. This is nonspecific but could b e due to chronic degenerative change. 3. Old, healed pubic bone fractures and an old, healed right proximal femoral fracture. 4. Moderate right and mild left hip osteoarthritis. 5. Redemonstration of the dilated loops of small bowel. This is better appreciated on the recent CT e xamination. ACT 112: Negative or not required by law. Electronically signed by: Clyde Sampson M.D. 09/23/2020 8:37 AM
[2020-09-23] MEDS: lamoTRIgine 100 MG TAB PO SCH (08:40)
[2020-09-23] MEDS: MULTIVITAMIN TAB PO SCH (08:40)
[2020-09-23] MEDS: CHOLECALCIFEROL 1,000 UNITS 25 MCG TAB PO SCH (08:41)
[2020-09-23] MEDS: GABAPENTIN 600 MG TAB PO SCH ×2 (08:41→13:04)
[2020-09-23] MEDS: SERTRALINE HCL 100 MG TABLET PO SCH (08:41)
[2020-09-23] MEDS: VITAMIN B COMPLEX TAB PO SCH (08:41)
[2020-09-23] MEDS: ENOXAPARIN INJ 40 MG/0.4 ML SYR SQ SCH (08:42)
[2020-09-23] MEDS: LACTATED RINGER'S 1,000 ML IV SCH ×2 (08:45→13:04)
[2020-09-23] MEDS ORDERED: LIDOCAINE 5% 1 PATCH TD SCH (09:30)
--- NOTE | 2020-09-23 16:05 | Discharge Summary ---
Date of Service September 23, 2020 Admission HPI Per Admitting Provider Mikala Dorman is a 70 year old woman with past medical history significant for cervical cancer stage IV 1989' removed and extensive radiation therapy to the pelvis, bipolar, restless leg syndrome, and hip fracture one year ago. [place] in her usual state of health this morning swung her legs around the bed no problem went to stand up. As soon as she bore weight through her right hip she both felt and heard a loud crack. Fell back onto the bed. Pain radiating from hip down the first part of her leg and down into her groin area. Pain is sharp and severe, she was able to ambulate poorly with two canes at home and trying not to bear too much weight on right leg. She felt extremely uncomfortable bearing weight, extremely uncomfortable sitting and lying as well. Called her who felt that he could not safely get her in to the hospital so they called 911 who brought her in by ambulance and gave her 75 mcg of fentanyl. She was standing with all weight on the left leg when she was brought in. She has received morphine x2 in ED and pain is under better control now. On arrival to ED she was found to have vital signs WNL, labwork significant for mild anemia, consistent with last check in November. X ray showing no acute fracture, CT abdomen pelvis notable for mild small bowel obstruction. Urinalysis negative. Patient now complaining of hunger and hip pain that had been severe but she had recently received morphine. She tells me she gets SBO's not uncommonly and usually rides them out at home. She says it has beent his way ever since her radiation therapy to her pelvis. Notably this past weekend she had nausea and vomiting several episodes mostly clear liquid vomiting last episode was Saturday night. She has had loose bowel movements last one two days ago, last meal was last night which she tolerated well. No abdominal pain nausea, or vomiting at present. She also has a history of spinal surgery by Dr. Lassiter and bilateral knee replacements by Dr. Titus. Has some back pain which she tells me is chronic and unchanged and denies knee pain. Has been staying well hydrated she tells me. Non smoker, occasional alcohol, averages three drinks per week. No other substance use. Lives with . FUll code Admission Exam Per Admitting Provider Constitutional: Well appearing woman resting in bed in no apparent distress conv ersing easily Eyes: pupils equal round and reactive to light and accomodation EOMMI b/l ENMT: NAD Neck: Supple, no pain on motion or palpation Respiratory: REgular rate, no increased work of breathing lung sounds vesicular throughout Cardiovascular: REgular rate regular rhythm no murmurs rubs skips or gallops, peripheral pulses intact GI: Abdomen soft mildly tender throughout, sluggish bowel sounds, present after palpation but not aucultated before. Somewhat distended MSK: Leg length equal, exquisitely tender to right hip, iliac crest, greater trochanter all bony landmarks. Also reportedly tender to L3, no saddle anesthesia, strength intact, motion impaired in all degrees by pain rather than strength. Pain with passive and active range of motion. Log roll positive on right side. Principal Diagnosis Sacroiliitis Piriformis Syndrome Discharge Exam General: A&Ox3. NAD. Cooperative. HEENT: Atraumatic, normocephalic. Pulm: CTAB A&P. -wheezes, -rales, -rhonchi. Symmetrical chest rise. No increase work of breathing. No respiratory distress. Cardiac: RRR, -mrg. Radial pulses intact and symmetrical. Abdominal: soft, non-tender, non-distended, BS x 4 MSK: TTP sacroiliac joint/piriformis muscle, tenderness radiates to patient's right knee on palpation, no TTP greater trochanter or iliac spine Discharge Data Allergies Allergy/AdvReac Type Severity Reaction Status Date / Time No Known Drug Allergies Allergy Unknown NONE Verified 09/21/20 08:36 Consultations 09/21/20 14:02 ED Decision to Admit Stat 09/21/20 18:28 Consult Orthopedic Surgery Routine Ordered Studies 09/21/20 10:56 CT abd pelvis IV con only Stat 09/21/20 18:28 MR hip RT wo con Urgent MR lumbar spine wo con Urgent 09/22/20 10:20 MR pelvis wo con Routine Hospital Course (1) Mixed incontinence urge and stress: Mikala Dorman is a 70 year old woman with past medical history of cervical cancer, status post surgery and extensive pelvic radiation, lumbar stenosis s/p fusion of spine in 2013, hip fracture s/p repair about one year ago at [place], Bilateral knee replacements, bipolar d/o and restless leg syndrome who was admitted for severe hip pain and evidence of SBO on CT scan. Hip pain Patient with severe hip pain on right side in context of audible/palpable "crack" with weight-bearing, MRI hip/MRI lumbar spine/MRI Pelvis without fracture or damaged hardware (previous surgeries) but did show widening of SI joint - suspect piriformis syndrome and sacroiliitis - Ortho consulted - recommended conservative management - Pain improved within ~24 hours and patient was able to ambulate with a walker, and transfer in and out of bed, on her own - OMT performed in the hospital for piriformis syndrome - recommend patient follows up with DO after discharge for more treatment - continue outpatient PT, focusing on SI joint/piriformis - f/u with PCP Small Bowel Obstruction Recent N/V this weekend but no current symptoms, SBO visualized on CT, appears to be chronic and usually managed as outpatient - suspect 2/2 radiation therapy. No N/V or abdominal pain on regular diet while hospitalized - regular diet after discharge, contact PCP for worsening of symptoms Bipolar Disorder - Continue home sertraline and lamotrigine Restless leg syndrome - Continue home gabapentin 1200 mg TID (2) Depression: (3) Lumbar stenosis: (4) Pelvic fracture: (5) Hip pain: (6) Back pain: (7) Small bowel obstruction: Total Time Total Time Spent Total Time Spent (In Minutes): <30 minutes Total Time Includes: Examination of the Patient, Discharge Planning and Communication With Other Providers Discharge Plan Discharge Items Patient Disposition: Home - Self-Care Reason For Visit: HIP INJURY Discharge Diagnosis: Right Sacroiliitis Activity: Per Instructions section Non-emergency contact: Primary Care Provider and Surgeon Call non-emergency contact if: your symptoms worsen and your pain is not controlled Follow-up/Referrals: Glenda Lassiter DO [Primary Care Provider] - Diet: Regular Addtl Attending Provider Instructions: You were admitted to [facility] on 09/21/2020 for back/hip pain that suddenly increased after you stood up from your bed. We obtained CT scans and MRI scans of your back and right hip, which thankfully did not show any fractures, broken bones, or malfunctioning hardware from your previous surgeries. The scans did show chronic arthritis in your hip and lower spine, widening of your SI joint, and a mildly protruding nail from your hardware. Your back/hip pain is likely due to inflammation in your SI joint from arthritis, called sacroiliitis. You also have some biomechanical hip pain from a strain of a muscle called the piriformis, that connects your lower back to your right hip. We were able to perform some therapy on these areas which seemed to help your pain. You also received some pain medications for the pain, and your pain quickly improved with these treatments. Our orthopedic surgeon was consulted and, after looking at your scans and meeting with you, agrees that your pain is most likely due to these above-mentioned causes, and surgery is not necessary. You will be discharged in improved, stable condition on 09/23/2020. We recommend that you follow up with your physical therapist to address your inflamed SI joint and your piriformis muscle. We also recommend that you ask your PCP about being referred to a DO for more therapy on your back and hip. Lastly, you can take Tylenol and/or Ibuprofen as needed for your pain. You can also buy over the counter lidocaine patches for the pain. You should continue to take all of your home medications as scheduled. We hope you continue to feel well. It was a pleasure to help provide your care while you were hospitalized. Pending Studies at Discharge: No Stand-Alone Forms: My [facility], Smoking Cessation Medications and DC Order Prescriptions: Continued lamotrigine 200 mg Tablet 200 mg PO QAM RF: 0 sertraline 100 mg Tablet 100 mg PO QAM RF: 0 cholecalciferol (vitamin D3) 1,000 unit Capsule 1,000 unit PO QAM RF: 0 vitamin B complex Tablet 1 tab PO QAM RF: 0 gabapentin 600 mg tablet 1,200 mg PO TID RF: 0 cyanocobalamin (vitamin B-12) 1,000 mcg/mL solution 1,000 mcg subcut UD RF: 0 multivitamin Tablet 1 tab PO DAILY RF: 0 Prolia 60 mg/mL Syringe 60 mg SUBCUT DIRECTED RF: 0 Discharge Orders: Discharge Order (Routine); Ordered 09/23/20 Ordered By: Mario Alfaro/Other Patient Handouts: Preventing Deep Vein Thrombosis Admission Data Admit Date/Time: 09/21/20 16:46 Attending Provider: Venkata Araiza Admit Provider: Konstantin Torres Primary Care Provider: Glenda Lassiter Other Providers: Ulisses Martinez ; Clayton Titus Other Interventions: Discharge Summary Assessment (RN) Last Done: 09/23/20 16:22 Supervising Physician Co-Signing Physician Notes I personally examined the patient and verified all feliz points of history and exam, discussed case, and agree with decision making with Dr Boswell Pain improved! Able to walk to and from the bathroom. Feels very much up to going home and would like to go home. Vitals noted, awake and alert pleasant no distress. HEENT normocephalic atraumatic mucous membranes moist. Breathing unlabored no accessory muscle use good effort. Skin shows no rashes no pallor or icterus. Back and hip painagree with orthopedics that it seems to be an interplay of structural and biomechanical disease, right SI joint, and right deep pelvic musculature both seem fairly equally at culprit. OMT has been done, and this seems to have affected a decent amount of pain relief. Orthopedics has the plan for SI joint injection if needed in the office. Recommended discharged home with close PCP follow-up, further OMT if pain is not improving, and then SI joint injection if needed after that/during ongoing treatment. She also noticed significant relief from lidocaine patch over her SI jointnoted that this can be continued. somatic dysfunction pelvis - OMT done during her stay otherwise as above, stable for home Resident Activity Tracking Resident Involvement: Resident Care Provided Care Provided: Adult Hospital Medicine
--- NOTE | 2020-09-23 17:02 | Communication Note ---
Date of Service: September 23, 2020 Patient seen earlier today. She states that she is feeling much better today and her pain is controlled. MRI of the pelvis showed no acute fractures but mild widening of the right SI joint with trace fluid. I have spoken to Dr. Lassiter who also reviewed the MRI. Plan will be pain control for now and get her into Dr. Lassiter's office eventually for a SI joint injection. We discussed that if her right lateral trochanteric pain continued, that a steroid injection for that might also help if it persists. Patient understands and will follow up with Dr. Lassiter in the outpatient setting.
--- NOTE | 2020-09-23 18:45 | Billing Data ---
Date of Service September 23, 2020 Coding Level of Care Code 32823 OBS Care - Discharge
== END 2020-09-23 17:21 | disposition home or self-care (01) ==
LOC: ED 08:00 → 3W 08:00

== ENCOUNTER 2021-06-25 18:09 | Inpatient (IN) ==
[2021-06-25] MEDS ORDERED: ONDANSETRON INJ 2 MG/ML 2 ML VIAL IV STA (18:26)
[2021-06-25] MEDS ORDERED: SODIUM CHLORIDE 0.9% 1000ML 1,000 ML IV ONE (18:26)
[2021-06-25 18:57] LABS: Basophils # (auto) 0.01 K/uL (0-0.2); Basophils % (auto) 0.2 %; Eosinophils # (auto) 0.03 K/uL (0-0.5); Eosinophils % (auto) 0.7 %; Hematocrit (blood only) 39.9 % (37-47); Hemoglobin 13.5 g/dL (12.0-16.0); Immature Granulocytes # (auto) 0.01 K/uL (0.00-0.02); Immature Granulocytes % (auto) 0.2 %; Lymphocytes # (auto) 1.32 K/uL (1.2-3.4); Lymphocytes % (auto) 30.3 %; Mean Corpuscular Hemoglobin 30.1 pg (25-34); Mean Corpuscular Hgb Conc 33.8 g/dL (32-36); Mean Corpuscular Volume 89.1 fL (80-100); Mean Platelet Volume 9.8 fL (7.4-10.4); Monocytes # (auto) 0.46 K/uL (0.11-0.59); Monocytes % (auto) 10.6 %; Neutrophils # (auto) 2.52 K/uL (1.4-6.5); Platelet Count 303 K/uL (130-400); RDW Coefficient of Variation 12.4 % (11.5-14.5); Red Blood Count 4.48 M/uL (4.2-5.4); White Blood Count 4.35 K/uL (4.8-10.8)
--- NOTE | 2021-06-25 19:04 | Emergency Department Note ---
History of Present Illness General Chief Complaint: Shortness of Breath/Dyspnea Stated Complaint: COVID+, COUGH, DIARRHEA, VOMITING, SOB, HEADACHE Time Seen by Provider: 06/25/21 18:19 History of Present Illness Provider Complaint: shortness of breath and cough Onset (ago): day(s) (6) Severity: moderate Consistency/Duration: + progressively worsening Maximum Pain Intensity: 7 Relieved By: + nothing Exacerbated By: + exertion and + coughing Context: + recent illness (Diagnosed with COVID-19 3 days ago, Patient was not vaccinated) Associated symptoms: + chest pain, + pain with inspiration, + fever, + cough, + sputum production, + nausea/vomiting and + abdominal pain; no orthopnea or no polydipsia Home Medications Medication Instructions Recorded Confirmed Type cholecalciferol (vitamin D3) 25 1,000 unit PO QAM 04/03/18 06/25/21 History mcg (1,000 unit) capsule lamotrigine 200 mg tablet 200 mg PO QAM 04/03/18 06/25/21 History sertraline 100 mg tablet 100 mg PO QAM 04/03/18 06/25/21 History vitamin B complex 1 tab PO QAM 11/03/18 06/25/21 History cyanocobalamin (vitamin B-12) 1,000 mcg SUBCUT UD 04/07/19 06/25/21 History 1,000 mcg/mL injection solution gabapentin 600 mg tablet 1,200 mg PO TID 04/07/19 06/25/21 History denosumab 60 mg/mL subcutaneous 60 mg SUBCUT DIRECTED 09/21/20 06/25/21 History syringe (Prolia) multivitamin 1 tab PO DAILY 09/21/20 06/25/21 History acetaminophen 500 mg tablet 100 mg PO TID PRN 06/25/21 06/25/21 History lidocaine 5 % topical patch 1 patch TRANSDERMAL DAILY PRN 06/25/21 06/25/21 History Allergies Allergy/AdvReac Type Severity Reaction Status Date / Time No Known Drug Allergies Allergy Unknown NONE Verified 06/25/21 18:47 Past Med/Surg History Medical History (Updated 06/25/21 @ 20:24 by Dean Peck) Acute right hip pain Anxiety Bipolar disorder Cancer Degenerative disc disease Depression Encounter for pre-operative examination History of cervical cancer RADIATION, CHEMO AND RADI IMPLANT 1989 History of chemotherapy Incontinence Intractable back pain Lumbar stenosis (01/07/14) Neurogenic claudication due to lumbar spinal stenosis Neuropathy Osteoarthritis Osteoporosis Pelvic fracture Vitamin B12 deficiency Surgical History Fusion of spine LUMBAR 2014, MAC 3, ETT 7.0, no issues H/O colonoscopy History of laparotomy History of total knee replacement BILATERAL S/P rotator cuff repair Status post hip surgery Family History Father Prostate cancer Diabetes Sister Diabetes Brother Diabetes Mother Dementia Other Breast cancer Social History Smoking Status: Never smoker Second Hand Exposure: No; Hx Alcohol Use: Yes Alcohol type: beer Hx Substance Use: No Preferred Language: Lao Communication Ability: Effective Visual Impairment: No Limitations Metal Fence Erector Required: No Beliefs That Will Affect Care: None marital status: Current Living Situation: Spouse Current Living Situation Comment: lives with ex- How many Children do You have: 3 Feels Safe at Home: Yes Assistive Devices: None Review of Systems A total of 10 systems reviewed and were otherwise negative Physical Exam Vital Signs: Vital Signs - 24 hr 06/25/21 18:14 06/25/21 18:53 06/25/21 18:57 Temperature 36.5 C Temperature Source Oral Pulse Rate 80 Pulse Rate [Apical ] Respiratory Rate 20 Respiratory Effort / Characteristics Respiratory Depth Blood Pressure 112/66 Blood Pressure [Le ft Arm] Blood Pressure Genia n 81 Blood Pressure Genia n [Left Arm] Pulse Oximetry 95 94 Oxygen Delivery Me thod Room Air Room Air Room Air Sepsis Recent Feve r Within 48 Hours No Sepsis New/Unexpla ined Change in Men elnior Status No Sepsis Action Take n by Nursing No Action Required 06/25/21 19:11 06/25/21 19:21 06/25/21 19:41 Temperature Temperature Source Pulse Rate Pulse Rate [Apical ] 61 58 L Respiratory Rate 19 20 Respiratory Effort / Characteristics Non-Labored Respiratory Depth Normal Blood Pressure Blood Pressure [Le ft Arm] 128/66 142/74 H Blood Pressure Genia n Blood Pressure Genia n [Left Arm] 86 96 Pulse Oximetry 95 94 Oxygen Delivery Me thod Room Air Room Air Room Air Sepsis Recent Feve r Within 48 Hours Sepsis New/Unexpla ined Change in Men elinor Status Sepsis Action Take n by Nursing 06/25/21 20:09 Temperature Temperature Source Pulse Rate Pulse Rate [Apical ] 67 Respiratory Rate 16 Respiratory Effort / Characteristics Respiratory Depth Blood Pressure Blood Pressure [Le ft Arm] 139/61 Blood Pressure Genia n Blood Pressure Genia n [Left Arm] 87 Pulse Oximetry 93 Oxygen Delivery Me thod Room Air Sepsis Recent Feve r Within 48 Hours Sepsis New/Unexpla ined Change in Men elinor Status Sepsis Action Take n by Nursing Physical Exam: Physical Exam GENERAL: She is oriented to person, place, and time. She appears well-developed and well-nourished. She does not appear distressed. HENT: Exam performed. -Head: Normocephalic and atraumatic. -Right Ear: External ear normal. No mastoid tenderness. -Left Ear: External ear normal. No mastoid tenderness. -Mouth/Throat: The oropharynx is clear and moist. No trismus in the jaw. No dental abscesses or uvula swelling. No oropharyngeal exudate or tonsillar abscesses. EYES: Conjunctivae and EOM are normal. Pupils are equal, round, and reactive to light. Right eye exhibits no discharge. Left eye exhibits no discharge. No scleral icterus. NECK: Normal range of motion. Neck supple. No JVD present. No spinous process tenderness present. No carotid bruit present. No rigidity. No tracheal deviation and normal range of motion present. No Brudzinski's sign and no Kernig's sign noted. CV: Normal rate, regular rhythm, normal heart sounds and intact distal pulses. There is no peripheral edema. Palpable radial pulses bue. PULM/CHEST: Rhonchi bilaterally. ABD: The abdomen is soft. Bowel sounds are normal. She has no distension. No mass is present. There is no tenderness. There is no rebound, no guarding, no Ramos's sign and no tenderness at McBurney's point. Rovsig negative MUSC/SKEL: Normal range of motion. There is no peripheral edema, tenderness or deformity. LYMPH: No cervical adenopathy. NEURO: She is alert and oriented to person, place, and time. She has normal strength. No cranial nerve deficit or sensory deficit. Coordination and gait normal. GCS eye subscore is 4. GCS verbal subscore is 5. GCS motor subscore is 6. Cerebellar tests wnl. SKIN: Skin is warm and dry. She is not diaphoretic. PSYCH: She has a normal mood and affect. Behavior is normal. Judgment and thought content normal. Course Course 1818: The patient was evaluated in room C10. A complete history and physical exam was performed Cardiac monitoring: An order was placed for continuous cardiac monitoring. The monitor shows a rate of 60 with sinus rhythm 2020:Vital signs stable. Patient in no respiratory distress oxygen saturation within normal limits. Imaging shows partial small bowel obstruction. Potassium 2.9. Potassium started in the emergency department. [facility]. Administered Medications Discontinued Medications Acetaminophen (Acetaminophen 500 Mg Tab) 1,000 mg PO NOW STA Stop: 06/25/21 19:56 Last Admin: 06/25/21 20:07 Dose: 1,000 mg Documented by: [id number] Sodium Chloride (Nss 1000ml) 1,000 mls @ 999 mls/hr IV .Q1H1M ONE Stop: 06/25/21 19:26 Last Infusion: 06/25/21 19:57 Dose: 0 mls/hr Documented by: [id number] Admin: 06/25/21 18:44 Dose: 999 mls/hr Documented by: [id number] Ioversol (Optiray 320 125ml) 118 ml IV ONCE ONE Stop: 06/25/21 19:48 Last Admin: 06/25/21 19:47 Dose: 118 ml Documented by: [id number] Ondansetron HCl (Ondansetron Inj 2 Mg/Ml 2 Ml Vial) 4 mg IV NOW STA Stop: 06/25/21 18:27 Last Admin: 06/25/21 18:45 Dose: 4 mg Documented by: [id number] Potassium Chloride (Potassium Chloride 10 Meq Tabcr) 40 meq PO NOW STA Stop: 06/25/21 19:30 Last Admin: 06/25/21 19:33 Dose: 40 meq Documented by: [id number] Medical Decision Making Laboratory Data Result diagrams: 06/25/21 18:46 06/25/21 18:46 Lab Results 06/25/21 06/25/21 06/25/21 Range/Units 18:46 18:46 18:46 WBC 4.35 L (4.8-10.8) K/uL RBC 4.48 (4.2-5.4) M/uL Hgb 13.5 (12.0-16.0) g/dL Hct 39.9 (37-47) % MCV 89.1 (80-100) fL MCH 30.1 (25-34) pg MCHC 33.8 (32-36) g/dL RDW Std Deviation 40.0 (36.4-46.3) fL RDW Coeff of Liliam 12.4 (11.5-14.5) % Plt Count 303 (130-400) K/uL MPV 9.8 (7.4-10.4) fL Immature Gran % (Auto) 0.2 % Neut % (Auto) 58.0 % Lymph % (Auto) 30.3 % [place] % (Auto) 10.6 % Eos % (Auto) 0.7 % Baso % (Auto) 0.2 % Neut # (Auto) 2.52 (1.4-6.5) K/uL Lymph # (Auto) 1.32 (1.2-3.4) K/uL [place] # (Auto) 0.46 (0.11-0.59) K/uL Eos # (Auto) 0.03 (0-0.5) K/uL Baso # (Auto) 0.01 (0-0.2) K/uL Immature Gran # (Auto) 0.01 (0.00-0.02) K/uL PT 9.9 (9.0-12.0) Seconds INR 1.0 (0.9-1.1) APTT 21.5 (21.0-31.0) Seconds PTT Ratio 0.8 Sodium 142 (136-145) mmol/L Potassium 2.9 L (3.5-5.1) mmol/L Chloride 106 (98-107) mmol/L Carbon Dioxide 27 (21-32) mmol/L Anion Gap 9 (3-11) BUN 19 (6-23) mg/dl Creatinine 0.68 (0.6-1.2) mg/dl Est Cr Clr Drug Dosing 79.9 ml/min Est GFR ( Amer) 104.2 ml/min Est GFR (Non-Af Amer) 89.9 ml/min BUN/Creatinine Ratio 27.9 H (10-20) Glucose 102 H (70-99) mg/dl Lactate (0.4-2.0) mmol/L Calcium 9.1 (8.5-10.1) mg/dl Magnesium 1.8 (1.7-2.4) mg/dl Total Bilirubin 0.7 (0.2-1.0) mg/dl AST 18 (13-39) U/L ALT 15 (7-52) U/L Alkaline Phosphatase 80 (34-104) U/L Troponin I < 0.03 (0-0.04) ng/ml Total Protein 6.7 (6.0-8.3) gm/dl Albumin 3.9 (3.4-5.0) gm/dl Globulin 2.8 (2.5-4.0) gm/dl Albumin/Globulin Ratio 1.4 (0.9-2) Procalcitonin (0-0.5) ng/ml 06/25/21 06/25/21 Range/Units 18:46 18:46 WBC (4.8-10.8) K/uL RBC (4.2-5.4) M/uL Hgb (12.0-16.0) g/dL Hct (37-47) % MCV (80-100) fL MCH (25-34) pg MCHC (32-36) g/dL RDW Std Deviation (36.4-46.3) fL RDW Coeff of Liliam (11.5-14.5) % Plt Count (130-400) K/uL MPV (7.4-10.4) fL Immature Gran % (Auto) % Neut % (Auto) % Lymph % (Auto) % [place] % (Auto) % Eos % (Auto) % Baso % (Auto) % Neut # (Auto) (1.4-6.5) K/uL Lymph # (Auto) (1.2-3.4) K/uL [place] # (Auto) (0.11-0.59) K/uL Eos # (Auto) (0-0.5) K/uL Baso # (Auto) (0-0.2) K/uL Immature Gran # (Auto) (0.00-0.02) K/uL PT (9.0-12.0) Seconds INR (0.9-1.1) APTT (21.0-31.0) Seconds PTT Ratio Sodium (136-145) mmol/L Potassium (3.5-5.1) mmol/L Chloride (98-107) mmol/L Carbon Dioxide (21-32) mmol/L Anion Gap (3-11) BUN (6-23) mg/dl Creatinine (0.6-1.2) mg/dl Est Cr Clr Drug Dosing ml/min Est GFR ( Amer) ml/min Est GFR (Non-Af Amer) ml/min BUN/Creatinine Ratio (10-20) Glucose (70-99) mg/dl Lactate 0.9 (0.4-2.0) mmol/L Calcium (8.5-10.1) mg/dl Magnesium (1.7-2.4) mg/dl Total Bilirubin (0.2-1.0) mg/dl AST (13-39) U/L ALT (7-52) U/L Alkaline Phosphatase (34-104) U/L Troponin I (0-0.04) ng/ml Total Protein (6.0-8.3) gm/dl Albumin (3.4-5.0) gm/dl Globulin (2.5-4.0) gm/dl Albumin/Globulin Ratio (0.9-2) Procalcitonin < 0.05 (0-0.5) ng/ml Imaging Data Radiologist's Impression: Abdomen/Pelvis CT 06/25/21 18:26 CT abd pelvis IV con only CLINICAL HISTORY: covid + N/V hx sbo COMPARISON STUDY: 09/21/2020 CT DOSE: TECHNIQUE: Standard CT of the Abdomen and Pelvis was performed with IV contrast. A dose lowering technique was utilized adhering to the principles of ALARA. Contrast Volume: Optiray 320, 118 ml. The patient did not receive oral contrast. FINDINGS: Abdominal cavity: There is no evidence for abdominal mass, adenopathy or ascites. Liver: There is homogeneous attenuation of the liver parenchyma. There is no evidence for enhancing mass lesion. Spleen: There is homogeneous attenuation of the splenic parenchyma. There is no enhancing mass lesion. Pancreas: There is homogeneous attenuation of the pancreatic parenchyma. There is no evidence for mass lesion or peripancreatic fluid collection. Gall Bladder: The gallbladder is distended with no evidence for intraluminal calculi, wall thickening or pericholecystic edema. Adrenal glands: The adrenal glands are normal in size and attenuation. There is no evidence for enhancing mass lesion. Kidneys: There is homogeneous attenuation of the renal parenchyma bilaterally. There is no evidence for renal calculus or hydronephrosis. There is no evidence for enhancing mass. Bowel: Compared to previous examination, there are mildly dilated, fluid-filled loops of small bowel again seen throughout the majority of the abdomen with decompression of the terminal ileum. Findings are again characteristic of partial small bowel obstruction, most likely related to adhesions. Fecal material seen within the colon. There are no inflammatory changes present. There is no evidence for free air. Bladder: The bladder is distended with no evidence for focal mass, calculus or diverticulum. : There is no evidence for pelvic mass or adenopathy. There is no evidence for pelvic ascites. Vasculature: There is no evidence for aneurysmal dilatation of the abdominal aorta. Osseous structures: There is no acute osseous pathology. Right hip replacement is again seen with mild imaging artifact present. Degenerative changes and previous internal fixation of the spine are seen well. IMPRESSION: 1. Compared to the previous study, there are mildly dilated, fluid-filled loops of small bowel proximally with decompression of the terminal ileum. The findings are again most characteristic of a partial small bowel obstruction, most likely related to adhesions. 2. No other evidence for acute intra-abdominal or pelvic abnormality. 3. Additional nonacute findings are delineated above. ACT 112: Negative or not required by law. Electronically signed by: Homero Schmid M.D. 06/25/2021 8:09 PM Chest CTA 06/25/21 18:26 CT angio chest PE protocol CLINICAL HISTORY: Covid positive. Shortness of breath. Evaluate for pulmonary embolus. COMPARISON STUDY: Portable chest from 06/25/2021 CT DOSE: 586.86 mGy.cm TECHNIQUE: CT Angio of the chest was performed.followed by image post processing with coronal, and sagittal MIP reformats. Contrast Volume: Optiray 320, 118 ml FINDINGS: Vasculature: There is homogeneous perfusion of the pulmonary vasculature bilaterally. No intraluminal filling defects or evidence for pulmonary embolus is seen. Airway: The airway is clear. No endobronchial lesion is identified. Lungs: Patchy groundglass opacities are present throughout both lungs, left greater than right characteristic of a viral type pneumonitis and Covid 19 pneumonia. The lungs are otherwise clear of confluent alveolar opacities, air bronchograms or pulmonary nodules. Pleura: There is no evidence for pleural effusion. There is no evidence for pneumothorax. Mediastinum: There is no evidence for pathologic adenopathy. The heart size is within normal limits. The thoracic aorta is within normal limits. There is no evidence for pericardial effusion. Osseous structures: There is no acute osseous pathology. Degenerative changes are seen within the spine. Impression: 1. No CTA evidence for pulmonary embolus. 2. Patchy groundglass opacities are present throughout both lungs, left greater than right characteristic of a viral type pneumonitis and Covid 19 pneumonia. ACT 112: Negative or not required by law. Electronically signed by: Homero Schmid M.D. 06/25/2021 8:02 PM Chest X-Ray 06/25/21 18:26 XR chest 1V portable CLINICAL HISTORY: SEPSIS. Fever and cough COMPARISON STUDY: 03/19/2018 TECHNIQUE: 1 view of the chest FINDINGS: Single frontal view of the chest demonstrates the cardiomediastinal silhouette to be within normal limits. There is patchy interstitial and alveolar opacities seen involving left lower mid to lower lung. The remainder the lungs are clear. There is no evidence for pleural effusion. There is no evidence for vascular congestion. There is no acute osseous pathology. IMPRESSION: Patchy interstitial and alveolar opacities involving the left mid to lower lobe suspicious for early pneumonia. The remainder of the lungs are clear. ACT 112: Negative or not required by law. Electronically signed by: Homero Schmid M.D. 06/25/2021 7:07 PM ECG Data Interpretation: Sinus rhythm with a rate of 63. [place] QRS and QTC Within normal limits. No ST e levation or depression. MDM Narrative Vital signs stable. Patient in no respiratory distress oxygen saturation within normal limits. Imaging shows partial small bowel obstruction. Potassium 2.9. Potassium started in the emergency department. Patient will be admitted to [facility] hospitalist team Dr. Bustos notified. Impression & Plan SBO (small bowel obstruction), COVID Discharge Plan Visit Data Chief Complaint: Shortness of Breath/Dyspnea Stated Complaint: COVID+, COUGH, DIARRHEA, VOMITING, SOB, HEADACHE ED Provider: Dean Peck Discharge Problem: SBO (small bowel obstruction), COVID Patient Disposition: Admitted As Inpatient Forms Stand Alone Forms: [facility] Prescriptions Prescriptions: No Action lamotrigine 200 mg Tablet 200 mg PO QAM RF: 0 sertraline 100 mg Tablet 100 mg PO QAM RF: 0 cholecalciferol (vitamin D3) 1,000 unit Capsule 1,000 unit PO QAM RF: 0 vitamin B complex Tablet 1 tab PO QAM RF: 0 gabapentin 600 mg tablet 1,200 mg PO TID RF: 0 cyanocobalamin (vitamin B-12) 1,000 mcg/mL solution 1,000 mcg subcut UD RF: 0 multivitamin Tablet 1 tab PO DAILY RF: 0 Prolia 60 mg/mL Syringe 60 mg SUBCUT DIRECTED RF: 0 acetaminophen 500 mg tablet 100 mg PO TID PRN (Reason: Headache) RF: 0 lidocaine 5 % adhesive patch,medicated 1 patch transdermal DAILY PRN (Reason: Pain) RF: 0 Referrals Referrals: Glenda Lassiter DO [Outside Practitioners] -
--- NOTE | 2021-06-25 19:09 | XRay Report ---
XR chest 1V portable CLINICAL HISTORY: SEPSIS. Fever and cough COMPARISON STUDY: 03/19/2018 TECHNIQUE: 1 view of the chest FINDINGS: Single frontal view of the chest demonstrates the cardiomediastinal silhouette to be within normal li mits. There is patchy interstitial and alveolar opacities seen involving left lower mid to lower lung . The remainder the lungs are clear. There is no evidence for pleural effusion. There is no evidence for vascular congestion. There is no acute osseous pathology. IMPRESSION: Patchy interstitial and alveolar opacities involving the left mid to lower lobe suspiciou s for early pneumonia. The remainder of the lungs are clear. ACT 112: Negative or not required by law. Electronically signed by: Homero Schmid M.D. 06/25/2021 7:07 PM
[2021-06-25 19:10] LABS: Partial Thromboplastin Ratio 0.8; Partial Thromboplastin Time 21.5 Seconds (21.0-31.0); Prothrombin Time 9.9 Seconds (9.0-12.0)
[2021-06-25 19:18] LABS: Alanine Aminotransferase 15 U/L (7-52); Albumin Globulin Ratio 1.4 (0.9-2); Albumin Level 3.9 gm/dl (3.4-5.0); Alkaline Phosphatase 80 U/L (34-104); Anion Gap 9 (3-11); Aspartate Aminotransferase 18 U/L (13-39); BUN Creatinine Ratio 27.9 (10-20); Bilirubin,Total 0.7 mg/dl (0.2-1.0); Blood Urea Nitrogen 19 mg/dl (6-23); Calcium 9.1 mg/dl (8.5-10.1); Carbon Dioxide 27 mmol/L (21-32); Chloride 106 mmol/L (98-107); Creatinine Clr Calc Pharmacy 79.9 ml/min; Est GFR (African American) 104.2 ml/min; Est GFR (Non-African American) 89.9 ml/min; Globulin 2.8 gm/dl (2.5-4.0); Glucose 102 mg/dl (70-99); Magnesium 1.8 mg/dl (1.7-2.4); Potassium 2.9 mmol/L (3.5-5.1); Sodium 142 mmol/L (136-145); Total Protein 6.7 gm/dl (6.0-8.3); Troponin I < 0.03 ng/ml (0-0.04)
[2021-06-25] MEDS ORDERED: POTASSIUM CHLORIDE 10 MEQ TABCR PO STA (19:29)
[2021-06-25] MEDS ORDERED: OPTIRAY 320 125ml IV ONE (19:47)
[2021-06-25] MEDS ORDERED: ACETAMINOPHEN 500 MG TAB PO STA (19:55)
--- NOTE | 2021-06-25 20:03 | CT Scan Report ---
CT angio chest PE protocol CLINICAL HISTORY: Covid positive. Shortness of breath. Evaluate for pulmonary embolus. COMPARISON STUDY: Portable chest from 06/25/2021 CT DOSE: 586.86 mGy.cm TECHNIQUE: CT Angio of the chest was performed.followed by image post processing with coronal, and s agittal MIP reformats. Contrast Volume: Optiray 320, 118 ml FINDINGS: Vasculature: There is homogeneous perfusion of the pulmonary vasculature bilaterally. No intraluminal filling defects or evidence for pulmonary embolus is seen. Airway: The airway is clear. No endobronchial lesion is identified. Lungs: Patchy groundglass opacities are present throughout both lungs, left greater than right charac teristic of a viral type pneumonitis and Covid 19 pneumonia. The lungs are otherwise clear of conflue nt alveolar opacities, air bronchograms or pulmonary nodules. Pleura: There is no evidence for pleural effusion. There is no evidence for pneumothorax. Mediastinum: There is no evidence for pathologic adenopathy. The heart size is within normal limits. The thoracic aorta is within normal limits. There is no evidence for pericardial effusion. Osseous structures: There is no acute osseous pathology. Degenerative changes are seen within the sp ine. Impression: 1. No CTA evidence for pulmonary embolus. 2. Patchy groundglass opacities are present throughout both lungs, left greater than right characteri stic of a viral type pneumonitis and Covid 19 pneumonia. ACT 112: Negative or not required by law. Electronically signed by: Homero Schmid M.D. 06/25/2021 8:02 PM
--- NOTE | 2021-06-25 20:11 | CT Scan Report ---
CT abd pelvis IV con only CLINICAL HISTORY: covid + N/V hx sbo COMPARISON STUDY: 09/21/2020 CT DOSE: TECHNIQUE: Standard CT of the Abdomen and Pelvis was performed with IV contrast. A dose lowering bartolo hnique was utilized adhering to the principles of ALARA. Contrast Volume: Optiray 320, 118 ml. The patient did not receive oral contrast. FINDINGS: Abdominal cavity: There is no evidence for abdominal mass, adenopathy or ascites. Liver: There is homogeneous attenuation of the liver parenchyma. There is no evidence for enhancing m ass lesion. Spleen: There is homogeneous attenuation of the splenic parenchyma. There is no enhancing mass lesion . Pancreas: There is homogeneous attenuation of the pancreatic parenchyma. There is no evidence for mas s lesion or peripancreatic fluid collection. Gall Bladder: The gallbladder is distended with no evidence for intraluminal calculi, wall thickening or pericholecystic edema. Adrenal glands: The adrenal glands are normal in size and attenuation. There is no evidence for enhan cing mass lesion. Kidneys: There is homogeneous attenuation of the renal parenchyma bilaterally. There is no evidence f or renal calculus or hydronephrosis. There is no evidence for enhancing mass. Bowel: Compared to previous examination, there are mildly dilated, fluid-filled loops of small bowel again seen throughout the majority of the abdomen with decompression of the terminal ileum. Findings are again characteristic of partial small bowel obstruction, most likely related to adhesions. Fecal material seen within the colon. There are no inflammatory changes present. There is no evidence for f ree air. Bladder: The bladder is distended with no evidence for focal mass, calculus or diverticulum. : There is no evidence for pelvic mass or adenopathy. There is no evidence for pelvic ascites. Vasculature: There is no evidence for aneurysmal dilatation of the abdominal aorta. Osseous structures: There is no acute osseous pathology. Right hip replacement is again seen with mil d imaging artifact present. Degenerative changes and previous internal fixation of the spine are seen well. IMPRESSION: 1. Compared to the previous study, there are mildly dilated, fluid-filled loops of small bowel proxim ally with decompression of the terminal ileum. The findings are again most characteristic of a partia l small bowel obstruction, most likely related to adhesions. 2. No other evidence for acute intra-abdominal or pelvic abnormality. 3. Additional nonacute findings are delineated above. ACT 112: Negative or not required by law. Electronically signed by: Homero Schmid M.D. 06/25/2021 8:09 PM
[2021-06-25] MEDS ORDERED: NSS + 20MEQ KCL 20 MEQ/1,000 ML BAG IV SCH (20:15)
--- NOTE | 2021-06-25 20:59 | History & Physical Report ---
Date of Service June 25, 2021 Assessment & Plan (1) SBO (small bowel obstruction): Plan: Patient with history of prior Bowel sounds present No abdominal pain or nausea -NPO -IVF and electrolyte repletion -Zofran PRN nausea -Morphine PRN pain (2) COVID: Plan: No hypoxic No indication for treatment at this time Continue to monitor (3) Depression: Plan: Chronic. Well controlled on medications -Continue Sertraline (4) Bipolar disorder: Plan: Chronic -Continue Lamictal History of Present Illness Chief Complaint: Covid-19 Primary Care Provider: Venkata Martinez MD 70yo female presenting with Covid-19 infection, possible SBO. Patient has been ill x 5 days with fatigue, body aches, dry cough. She had diarrhea 2 days ago. No BM since. No complaint of abdominal pain No oral intake x 1 day ER Course: Tylenol, Zofran, KCl 60mEq, NSS Allergies Allergy/AdvReac Type Severity Reaction Status Date / Time No Known Drug Allergies Allergy Unknown NONE Verified 06/25/21 18:47 Home Medications Medication Instructions Recorded Confirmed Type cholecalciferol (vitamin D3) 25 1,000 unit PO QAM 04/03/18 06/25/21 History mcg (1,000 unit) capsule lamotrigine 200 mg tablet 200 mg PO QAM 04/03/18 06/25/21 History sertraline 100 mg tablet 100 mg PO QAM 04/03/18 06/25/21 History vitamin B complex 1 tab PO QAM 11/03/18 06/25/21 History cyanocobalamin (vitamin B-12) 1,000 mcg SUBCUT UD 04/07/19 06/25/21 History 1,000 mcg/mL injection solution gabapentin 600 mg tablet 1,200 mg PO TID 04/07/19 06/25/21 History denosumab 60 mg/mL subcutaneous 60 mg SUBCUT DIRECTED 09/21/20 06/25/21 History syringe (Prolia) multivitamin 1 tab PO DAILY 09/21/20 06/25/21 History acetaminophen 500 mg tablet 1,000 mg PO TID PRN 06/25/21 06/25/21 History lidocaine 5 % topical patch 1 patch TRANSDERMAL DAILY PRN 06/25/21 06/25/21 History Past Med/Surg History Medical History (Updated 06/26/21 @ 04:27 by Gladys Bustos DO) Acute right hip pain Anxiety Bipolar disorder Cancer Degenerative disc disease Depression Encounter for pre-operative examination History of cervical cancer RADIATION, CHEMO AND RADI IMPLANT 1989 History of chemotherapy Incontinence Intractable back pain Lumbar stenosis (01/07/14) Neurogenic claudication due to lumbar spinal stenosis Neuropathy Osteoarthritis Osteoporosis Pelvic fracture Vitamin B12 deficiency Surgical History Fusion of spine LUMBAR 2014, MAC 3, ETT 7.0, no issues H/O colonoscopy History of laparotomy History of total knee replacement BILATERAL S/P rotator cuff repair Status post hip surgery Family History Father Prostate cancer Diabetes Sister Diabetes Brother Diabetes Mother Dementia Other Breast cancer Social History Smoking Status: Never smoker Second Hand Exposure: No; Do You Dip or Chew Tobacco: No; Tobacco Cessation Education Requested by Patient: No Hx Alcohol Use: Yes Alcohol type: beer Hx Substance Use: No Preferred Language: Vincentian Communication Ability: Effective Visual Impairment: No Limitations Trekking Guide Required: No Beliefs That Will Affect Care: None marital status: Current Living Situation: Alone Current Living Situation Comment: Lives w/ How many Children do You have: 3 Other Information That Helps Us Care for You: No Feels Safe at Home: Yes Safety Concerns: Feels Safe At This Time Assistive Devices: Cane, Denture - Upper and Glasses Assistive Devices Comment: Pt. belongings at bedside Review of Systems Review of Systems: All systems reviewed & are unremarkable except as noted in HPI & below Physical Exam Physical Exam: General: patient resting comfortably, NAD, non-toxic in appearance, AA&O x 4 Skin: warm, dry, intact, no rashes or lesions HEENT: NC/AT, PERRL, EOMI, anicteric sclera, conjunctiva without injection, external ear normal to inspection and nontender, nares patent, moist mucus membranes, dentition intact, no oropharyngeal lesions, neck supple, trachea midline, no LAD, no thyromegaly, no JVD Heart: +S1/S2, regular, no m/r/g Lungs: equal air entry bilaterally, no rales/rhonchi/wheezes Abd: +BS, soft, NT/ND, no masses/organomegaly/ascites Ext: warm, 2+ pulses in UE/LE bilaterally, no clubbing/cyanosis or edema Neuro: nonfocal, patient AA&O x 4, speech intact, no facial droop, moving all extremities on command with equal strength 5/5 Results & Data Results & Data ([facility]) Vital Signs (Past 12 Hours) Vital Signs Temp Pulse Pulse Resp BP BP Pulse Ox 06/25/21 20:09 67 16 139/61 93 06/25/21 19:41 58 L 20 142/74 H 94 06/25/21 19:11 61 19 128/66 95 06/25/21 18:53 94 06/25/21 18:14 36.5 C 80 20 112/66 95 Laboratory Results Laboratory Results WBC 4.35 K/uL (4.8-10.8) L 06/25/21 18:46 RBC 4.48 M/uL (4.2-5.4) 06/25/21 18:46 Hgb 13.5 g/dL (12.0-16.0) 06/25/21 18:46 Hct 39.9 % (37-47) 06/25/21 18:46 MCV 89.1 fL (80-100) 06/25/21 18:46 MCH 30.1 pg (25-34) 06/25/21 18:46 MCHC 33.8 g/dL (32-36) 06/25/21 18:46 RDW Std Deviation 40.0 fL (36.4-46.3) 06/25/21 18:46 RDW Coeff of Liliam 12.4 % (11.5-14.5) 06/25/21 18:46 Plt Count 303 K/uL (130-400) 06/25/21 18:46 MPV 9.8 fL (7.4-10.4) 06/25/21 18:46 Immature Gran % (Auto) 0.2 % 06/25/21 18:46 Neut % (Auto) 58.0 % 06/25/21 18:46 Lymph % (Auto) 30.3 % 06/25/21 18:46 [place] % (Auto) 10.6 % 06/25/21 18:46 Eos % (Auto) 0.7 % 06/25/21 18:46 Baso % (Auto) 0.2 % 06/25/21 18:46 Neut # (Auto) 2.52 K/uL (1.4-6.5) 06/25/21 18:46 Lymph # (Auto) 1.32 K/uL (1.2-3.4) 06/25/21 18:46 [place] # (Auto) 0.46 K/uL (0.11-0.59) 06/25/21 18:46 Eos # (Auto) 0.03 K/uL (0-0.5) 06/25/21 18:46 Baso # (Auto) 0.01 K/uL (0-0.2) 06/25/21 18:46 Immature Gran # (Auto) 0.01 K/uL (0.00-0.02) 06/25/21 18:46 PT 9.9 Seconds (9.0-12.0) 06/25/21 18:46 INR 1.0 (0.9-1.1) 06/25/21 18:46 APTT 21.5 Seconds (21.0-31.0) 06/25/21 18:46 PTT Ratio 0.8 06/25/21 18:46 D-Dimer 500 ug/L FEU (0-500) 06/25/21 18:46 Sodium 142 mmol/L (136-145) 06/25/21 18:46 Potassium 2.9 mmol/L (3.5-5.1) L 06/25/21 18:46 Chloride 106 mmol/L (98-107) 06/25/21 18:46 Carbon Dioxide 27 mmol/L (21-32) 06/25/21 18:46 Anion Gap 9 (3-11) 06/25/21 18:46 BUN 19 mg/dl (6-23) 06/25/21 18:46 Creatinine 0.68 mg/dl (0.6-1.2) 06/25/21 18:46 Est Cr Clr Drug Dosing 79.9 ml/min 06/25/21 18:46 Est GFR ( Amer) 104.2 ml/min 06/25/21 18:46 Est GFR (Non-Af Amer) 89.9 ml/min 06/25/21 18:46 BUN/Creatinine Ratio 27.9 (10-20) H 06/25/21 18:46 Glucose 102 mg/dl (70-99) H 06/25/21 18:46 Lactate 0.9 mmol/L (0.4-2.0) 06/25/21 18:46 Calcium 9.1 mg/dl (8.5-10.1) 06/25/21 18:46 Magnesium 1.8 mg/dl (1.7-2.4) 06/25/21 18:46 Total Bilirubin 0.7 mg/dl (0.2-1.0) 06/25/21 18:46 AST 18 U/L (13-39) 06/25/21 18:46 ALT 15 U/L (7-52) 06/25/21 18:46 Alkaline Phosphatase 80 U/L (34-104) 06/25/21 18:46 Troponin I < 0.03 ng/ml (0-0.04) 06/25/21 18:46 Total Protein 6.7 gm/dl (6.0-8.3) 06/25/21 18:46 Albumin 3.9 gm/dl (3.4-5.0) 06/25/21 18:46 Globulin 2.8 gm/dl (2.5-4.0) 06/25/21 18:46 Albumin/Globulin Ratio 1.4 (0.9-2) 06/25/21 18:46 Procalcitonin < 0.05 ng/ml (0-0.5) 06/25/21 18:46 Urine Color Yellow 06/26/21 02:50 Urine Appearance Cloudy (Clear) A 06/26/21 02:50 Urine pH 5.5 (4.5-7.5) 06/26/21 02:50 Ur Specific Preemption > 1.045 (1.000-1.030) H 06/26/21 02:50 Urine Protein Trace (Negative) H 06/26/21 02:50 Urine Glucose (UA) Negative (Negative) 06/26/21 02:50 Urine Ketones Trace (Negative) H 06/26/21 02:50 Urine Blood 1+ (Negative) H 06/26/21 02:50 Urine Nitrite Positive (Negative) A 06/26/21 02:50 Urine Bilirubin Negative (Negative) 06/26/21 02:50 Urine Urobilinogen Negative (Negative) 06/26/21 02:50 Ur Leukocyte Esterase 1+ (Negative) H 06/26/21 02:50 Urine WBC (Auto) >30 /hpf (0-5) H 06/26/21 02:50 Urine RBC (Auto) 0-4 /hpf (0-4) 06/26/21 02:50 U Hyaline Cast (Auto) 5-10 /lpf (0-5) H 06/26/21 02:50 U Epithel Cells (Auto) 0-5 /lpf (0-5) 06/26/21 02:50 Urine Bacteria (Auto) 4+ (Negative) H 06/26/21 02:50 Stl C. diff Tox B Gene Negative Cdiff Gene (Neg) 06/26/21 00:10 SARS-CoV-2 (PCR) POSITIVE (Negative) A* 06/25/21 20:22 Influenza Type A (PCR) Negative (Neg) 06/25/21 20:22 Influenza Type B (PCR) Negative (Neg) 06/25/21 20:22 RSV (RT-PCR) Negative (Neg) 06/25/21 20:22 Impressions Abdomen/Pelvis CT 06/25/21 18:26 CT abd pelvis IV con only CLINICAL HISTORY: covid + N/V hx sbo COMPARISON STUDY: 09/21/2020 CT DOSE: TECHNIQUE: Standard CT of the Abdomen and Pelvis was performed with IV contrast. A dose lowering technique was utilized adhering to the principles of ALARA. Contrast Volume: Optiray 320, 118 ml. The patient did not receive oral contrast. FINDINGS: Abdominal cavity: There is no evidence for abdominal mass, adenopathy or ascites. Liver: There is homogeneous attenuation of the liver parenchyma. There is no evidence for enhancing mass lesion. Spleen: There is homogeneous attenuation of the splenic parenchyma. There is no enhancing mass lesion. Pancreas: There is homogeneous attenuation of the pancreatic parenchyma. There is no evidence for mass lesion or peripancreatic fluid collection. Gall Bladder: The gallbladder is distended with no evidence for intraluminal calculi, wall thickening or pericholecystic edema. Adrenal glands: The adrenal glands are normal in size and attenuation. There is no evidence for enhancing mass lesion. Kidneys: There is homogeneous attenuation of the renal parenchyma bilaterally. There is no evidence for renal calculus or hydronephrosis. There is no evidence for enhancing mass. Bowel: Compared to previous examination, there are mildly dilated, fluid-filled loops of small bowel again seen throughout the majority of the abdomen with decompression of the terminal ileum. Findings are again characteristic of partial small bowel obstruction, most likely related to adhesions. Fecal material seen within the colon. There are no inflammatory changes present. There is no evidence for free air. Bladder: The bladder is distended with no evidence for focal mass, calculus or diverticulum. : There is no evidence for pelvic mass or adenopathy. There is no evidence for pelvic ascites. Vasculature: There is no evidence for aneurysmal dilatation of the abdominal aorta. Osseous structures: There is no acute osseous pathology. Right hip replacement is again seen with mild imaging artifact present. Degenerative changes and previous internal fixation of the spine are seen well. IMPRESSION: 1. Compared to the previous study, there are mildly dilated, fluid-filled loops of small bowel proximally with decompression of the terminal ileum. The findings are again most characteristic of a partial small bowel obstruction, most likely related to adhesions. 2. No other evidence for acute intra-abdominal or pelvic abnormality. 3. Additional nonacute findings are delineated above. ACT 112: Negative or not required by law. Electronically signed by: Homero Schmid M.D. 06/25/2021 8:09 PM Chest CTA 06/25/21 18:26 CT angio chest PE protocol CLINICAL HISTORY: Covid positive. Shortness of breath. Evaluate for pulmonary embolus. COMPARISON STUDY: Portable chest from 06/25/2021 CT DOSE: 586.86 mGy.cm TECHNIQUE: CT Angio of the chest was performed.followed by image post processing with coronal, and sagittal MIP reformats. Contrast Volume: Optiray 320, 118 ml FINDINGS: Vasculature: There is homogeneous perfusion of the pulmonary vasculature bilaterally. No intraluminal filling defects or evidence for pulmonary embolus is seen. Airway: The airway is clear. No endobronchial lesion is identified. Lungs: Patchy groundglass opacities are present throughout both lungs, left greater than right characteristic of a viral type pneumonitis and Covid 19 pneumonia. The lungs are otherwise clear of confluent alveolar opacities, air bronchograms or pulmonary nodules. Pleura: There is no evidence for pleural effusion. There is no evidence for pneumothorax. Mediastinum: There is no evidence for pathologic adenopathy. The heart size is within normal limits. The thoracic aorta is within normal limits. There is no evidence for pericardial effusion. Osseous structures: There is no acute osseous pathology. Degenerative changes are seen within the spine. Impression: 1. No CTA evidence for pulmonary embolus. 2. Patchy groundglass opacities are present throughout both lungs, left greater than right characteristic of a viral type pneumonitis and Covid 19 pneumonia. ACT 112: Negative or not required by law. Electronically signed by: Homero Schmid M.D. 06/25/2021 8:02 PM Chest X-Ray 06/25/21 18:26 XR chest 1V portable CLINICAL HISTORY: SEPSIS. Fever and cough COMPARISON STUDY: 03/19/2018 TECHNIQUE: 1 view of the chest FINDINGS: Single frontal view of the chest demonstrates the cardiomediastinal silhouette to be within normal limits. There is patchy interstitial and alveolar opacities seen involving left lower mid to lower lung. The remainder the lungs are clear. There is no evidence for pleural effusion. There is no evidence for vascular congestion. There is no acute osseous pathology. IMPRESSION: Patchy interstitial and alveolar opacities involving the left mid to lower lobe suspicious for early pneumonia. The remainder of the lungs are clear. ACT 112: Negative or not required by law. Electronically signed by: Homero Schmid M.D. 06/25/2021 7:07 PM Code Status & VTE Plan VTE Prophylaxis Plan VTE Prophylaxis will be ordered: Yes PG Care Time/CCT Total # of Minutes Spent Total Time Spent with Patient: Total time spent is greater than 50% in coordination of care (as documented) at patient's floor/unit and/or counseling patient: Coding Level of Care Code 99789 Initial Inpt Care Lvl 3 Diagnoses SBO (small bowel obstruction) K56.609 COVID U07.1 Depression F32.9 Bipolar disorder F31.9
[2021-06-25] MEDS ORDERED: ONDANSETRON INJ 2 MG/ML 2 ML VIAL IV PRN ×2 (21:40→22:53)
[2021-06-25] MEDS ORDERED: ONDANSETRON INJ 2 MG/ML 2 ML VIAL ONE (21:42)
[2021-06-25 21:52] LABS: Influenza A virus by PCR Negative (Neg); Influenza B virus by PCR Negative (Neg); RSV by PCR Negative (Neg)
[2021-06-25 21:58] LABS: SARS CoV2 RNA(COVID-19) InHosp POSITIVE (Negative)
[2021-06-25] MEDS ORDERED: MoRPHine SULFATE 2 MG/ML CARP IV PRN (22:53)
[2021-06-25] MEDS ORDERED: ZINC SULFATE 220 MG CAPSULE PO SCH (22:53)
[2021-06-25] MEDS ORDERED: LIDOCAINE 5% 1 PATCH TD PRN (22:53)
[2021-06-25 23:27] LABS: D Dimer 500 ug/L FEU (0-500)
[2021-06-25] MEDS ORDERED: MAGNESIUM SULFATE / D5W 1 GM/100 ML BAG IV ONE (23:30)
[2021-06-25] MEDS: GABAPENTIN 600 MG TAB PO SCH (23:56)
[2021-06-25] MEDS: guaiFENesin 600 MG TABCR PO SCH (23:57)
[2021-06-25] MEDS: ENOXAPARIN INJ 40 MG/0.4 ML SYR SQ SCH (23:58)
[2021-06-26 03:07] LABS: Appearance Urine Cloudy (Clear); Bacteria Urine Automated 4+ (Negative); Bilirubin Urine Negative (Negative); Blood Urine 1+ (Negative); Color Urine Yellow; Epithelial Cell Urine Auto 0-5 /lpf (0-5); Glucose Urine UA Negative (Negative); Ketones Urine Trace (Negative); Leukocyte Esterase Urine 1+ (Negative); Nitrite Urine Positive (Negative); Protein Urine Trace (Negative); RBC Urine Automated 0-4 /hpf (0-4); Specific Gravity Urine > 1.045 (1.000-1.030); Urobilinogen Urine Negative (Negative); WBC Urine Automated >30 /hpf (0-5); pH Urine 5.5 (4.5-7.5)
[2021-06-26] MEDS ORDERED: Nursing to Pharmacy Communication SCH (03:15)
[2021-06-26 06:15] LABS: Basophils # (auto) 0.01 K/uL (0-0.2); Basophils % (auto) 0.2 %; Eosinophils # (auto) 0.04 K/uL (0-0.5); Eosinophils % (auto) 0.8 %; Hematocrit (blood only) 34.7 % (37-47); Hemoglobin 11.5 g/dL (12.0-16.0); Immature Granulocytes # (auto) 0.02 K/uL (0.00-0.02); Immature Granulocytes % (auto) 0.4 %; Lymphocytes # (auto) 1.21 K/uL (1.2-3.4); Lymphocytes % (auto) 23.6 %; Mean Corpuscular Hemoglobin 29.7 pg (25-34); Mean Corpuscular Hgb Conc 33.1 g/dL (32-36); Mean Corpuscular Volume 89.7 fL (80-100); Mean Platelet Volume 9.9 fL (7.4-10.4); Monocytes # (auto) 0.62 K/uL (0.11-0.59); Monocytes % (auto) 12.1 %; Neutrophils # (auto) 3.23 K/uL (1.4-6.5); Neutrophils % (auto) 62.9 %; Platelet Count 274 K/uL (130-400); RDW Coefficient of Variation 12.7 % (11.5-14.5); RDW Standard Deviation 41.6 fL (36.4-46.3); Red Blood Count 3.87 M/uL (4.2-5.4); White Blood Count 5.13 K/uL (4.8-10.8)
[2021-06-26 06:37] LABS: Albumin Level 3.2 gm/dl (3.4-5.0); Bilirubin Direct 0.1 mg/dl (0-0.2); Bilirubin,Total 0.5 mg/dl (0.2-1.0); Calcium 8.2 mg/dl (8.5-10.1); Creatinine Clr Calc Pharmacy 108.6 ml/min; Est GFR (African American) 115.3 ml/min; Est GFR (Non-African American) 99.4 ml/min; Potassium 3.2 mmol/L (3.5-5.1); Total Protein 5.6 gm/dl (6.0-8.3)
[2021-06-26] MEDS: guaiFENesin 600 MG TABCR PO SCH ×2 (08:17→20:56)
[2021-06-26] MEDS: SERTRALINE HCL 100 MG TABLET PO SCH (08:17)
[2021-06-26] MEDS: lamoTRIgine 100 MG TAB PO SCH (08:17)
[2021-06-26] MEDS: GABAPENTIN 600 MG TAB PO SCH ×3 (08:17→20:57)
[2021-06-26] MEDS: BENZONATATE 100 MG CAPSULE PO PRN ×3 (08:18→23:13)
[2021-06-26] MEDS: ACETAMINOPHEN 500 MG TAB PO PRN ×2 (08:19→14:39)
--- NOTE | 2021-06-26 08:45 | Electrocardiogram Report ---
Test Reason : Blood Pressure : / mmHG Vent. Rate : 063 BPM Atrial Rate : 063 BPM P-R Int : 138 ms QRS Dur : 106 ms QT Int : 428 ms P-R-T Axes : 028 -09 071 degrees QTc Int : 437 ms Normal sinus rhythm Normal ECG When compared with ECG of 15-NOV-2019 15:44, Incomplete right bundle branch block is no longer Present Confirmed by Fei Freeman ([id number]) on 06/26/2021 8:44:37 AM Referred By: REFERRED SELF Confirmed By:Fei Freeman
--- NOTE | 2021-06-26 10:29 | XRay Report ---
KUB HISTORY: Possible bowel obstruction. Follow-up. COMPARISON: Abdomen and pelvis CT 06/25/2021. KUB 11/17/2019. FINDINGS: There are few borderline dilated gas-filled loops of large or small bowel seen within the a bdomen. This could represent an ileus versus a partial small bowel obstruction. Posterior fusion hard desai again noted within the lumbar spine. There is a right dynamic hip screw. Surgical clips within t he deep pelvis. No renal calculi. No ureteral calculi. No pneumoperitoneum or pneumatosis. IMPRESSION: There are few borderline dilated gas-filled loops of large or small bowel seen within the abdomen. Th is could represent an ileus versus a partial small bowel obstruction. ACT 112: Negative or not required by law. Electronically signed by: Clyde Sampson M.D. 06/26/2021 10:28 AM
[2021-06-26] MEDS ORDERED: POTASSIUM CHLORIDE CRTAB 20 MEQ TABCR PO STA (12:12)
--- NOTE | 2021-06-26 12:34 | Hospitalist Progress Note ---
Date of Service June 26, 2021 Assessment & Plan (1) SBO (small bowel obstruction): Plan: Patient with history of prior Bowel sounds present No abdominal pain or nausea Advance to clears - likely can keep advancing to full liquids tomorrow if doing well Continue to replace potassium with 40 meq PO today -Zofran PRN nausea -Morphine PRN pain (2) COVID: Plan: No hypoxia No indication for treatment at this time Continue to monitor Suspect cause of her headache, cough and diarrhea First day of symptoms: 06/21/2021 First positive test: 06/25/2021 Treatment held on admission due to O2 sats >= 94% (3) Depression: Plan: Chronic. Well controlled on medications -Continue Sertraline (4) Bipolar disorder: Plan: Chronic -Continue Lamictal Plan: VTE Prophylaxis - Lovenox 40mg SQ HS Diet - clear liquid as above Disposition - COVID isolation, med/surg Admission and Anticipated Discharge Date Admission Date: June 25, 2021 Subjective Having diarrhea, no nausea, vomiting or abdominal pain. No melena or bright red blood in stool. Cough but no shortness of breath. Updated her daughter over the phone. Review of Systems Review of Systems: All systems reviewed & are unremarkable except as noted in HPI & below Physical Exam Constitutional: WD/WN, vitals as above ENMT: external ear and nose normal, oropharynx normal Neck: trachea midline, no thyromegaly Respiratory: normal respiratory effort, lungs clear to auscultation Cardiovascular: RRR, no murmur, no edema Gastrointestinal (Abdomen): Inspection/Auscultation: normal bowel sounds Percussion/Palpation: abdomen soft; abdomen nontender Musculoskeletal: no cyanosis or clubbing, extremities motor strength 5/5 Skin: no rashes, warm and dry Neurologic: moves all extremities and awake; not confused Psychiatric: A+Ox3, euthymic affect Results & Data Results & Data ([facility]) Vital Signs (Past 12 Hours) Vital Signs Temp Pulse Resp BP Pulse Ox 06/26/21 08:23 36.7 C 68 16 103/68 92 PG Care Time/CCT Total # of Minutes Spent Total Time Spent with Patient: Total time spent is greater than 50% in coordination of care (as documented) at patient's floor/unit and/or counseling patient: Coding Level of Care Code 11284 Subseq Hosp Care Lvl 2 Diagnoses SBO (small bowel obstruction) K56.609 COVID U07.1 Depression F32.9 Bipolar disorder F31.9
[2021-06-26] MEDS: ENOXAPARIN INJ 40 MG/0.4 ML SYR SQ SCH (20:58)
[2021-06-27 06:39] LABS: Basophils # (auto) 0.01 K/uL (0-0.2); Basophils % (auto) 0.2 %; Eosinophils # (auto) 0.07 K/uL (0-0.5); Eosinophils % (auto) 1.4 %; Hematocrit (blood only) 33.9 % (37-47); Hemoglobin 11.2 g/dL (12.0-16.0); Immature Granulocytes # (auto) 0.02 K/uL (0.00-0.02); Immature Granulocytes % (auto) 0.4 %; Lymphocytes # (auto) 1.53 K/uL (1.2-3.4); Lymphocytes % (auto) 29.8 %; Mean Corpuscular Hemoglobin 29.6 pg (25-34); Mean Corpuscular Volume 89.4 fL (80-100); Mean Platelet Volume 9.8 fL (7.4-10.4); Monocytes # (auto) 0.62 K/uL (0.11-0.59); Monocytes % (auto) 12.1 %; Neutrophils # (auto) 2.89 K/uL (1.4-6.5); Neutrophils % (auto) 56.1 %; Platelet Count 290 K/uL (130-400); RDW Coefficient of Variation 12.6 % (11.5-14.5); RDW Standard Deviation 40.7 fL (36.4-46.3); Red Blood Count 3.79 M/uL (4.2-5.4); White Blood Count 5.14 K/uL (4.8-10.8)
[2021-06-27 07:00] LABS: Calcium 8.3 mg/dl (8.5-10.1); Creatinine Clr Calc Pharmacy 108.6 ml/min; Est GFR (African American) 115.3 ml/min; Est GFR (Non-African American) 99.4 ml/min; Magnesium 1.8 mg/dl (1.7-2.4); Phosphorus 3.2 mg/dl (2.5-4.9); Potassium 3.5 mmol/L (3.5-5.1)
[2021-06-27] MEDS: lamoTRIgine 100 MG TAB PO SCH (08:08)
[2021-06-27] MEDS: guaiFENesin 600 MG TABCR PO SCH ×2 (08:08→21:01)
[2021-06-27] MEDS: GABAPENTIN 600 MG TAB PO SCH ×3 (08:08→21:01)
[2021-06-27] MEDS: SERTRALINE HCL 100 MG TABLET PO SCH (08:09)
[2021-06-27] MEDS: POTASSIUM CHLORIDE CRTAB 20 MEQ TABCR PO SCH (08:09)
[2021-06-27] MEDS: BENZONATATE 100 MG CAPSULE PO PRN ×2 (08:09→13:59)
[2021-06-27 15:11] LABS: Adenovirus F 40/41 PCR Not Detected (NotDetected); Astrovirus PCR Not Detected (NotDetected); Campylobacter PCR Not Detected (NotDetected); Clostridium diff Toxin A/B PCR Not Detected (NotDetected); Cryptosporidium PCR Not Detected (NotDetected); Cyclospora cayetanensis PCR Not Detected (NotDetected); Entamoeba histolytica PCR Not Detected (NotDetected); Enteroaggregative E.coli(EAEC) Not Detected (NotDetected); Enteropathogenic E.coli (EPEC) Not Detected (NotDetected); Enterotoxigenic E.coli (ETEC) Not Detected (NotDetected); Giardia lamblia PCR Not Detected (NotDetected); Norovirus GI/GII PCR Not Detected (NotDetected); Plesiomonas shigelloides PCR Not Detected (NotDetected); Rotavirus A PCR Not Detected (NotDetected); Salmonella PCR Not Detected (NotDetected); Sapovirus PCR Not Detected (NotDetected); Shiga-like Toxin E.coli (STEC) Not Detected (NotDetected); Shigella/Enteroinvasive E.coli Not Detected (NotDetected); Vibrio cholerae PCR Not Detected (NotDetected); Vibrio species PCR Not Detected (NotDetected); Yersinia enterocolitica PCR Not Detected (NotDetected)
[2021-06-27] MEDS ORDERED: cefTRIAXone SODIUM 1,000 MG in DEXTROSE 5% 50 ML IV SCH (18:30)
--- NOTE | 2021-06-27 18:34 | Hospitalist Progress Note ---
Date of Service June 27, 2021 Assessment & Plan (1) SBO (small bowel obstruction): Plan: Patient with history of prior Bowel sounds present No abdominal pain or nausea Tolerating full liquid from this morning, will advance back to regular low fiber diet today -Zofran PRN nausea -Morphine PRN pain Stool PCR and c. diff negative - suspect diarrhea secondary to COVID and need to keep up with potassium loss with 40 meq PO daily (2) UTI (urinary tract infection): Plan: Associated with straight caths but new onset dysuria for the last 3 days with grossly positive UA will start treatment with ceftriaxone 1g IV Follow up urine culture for final antibiotic choice (3) COVID: Plan: No hypoxia No indication for treatment at this time Continue to monitor Suspect cause of her headache, cough and diarrhea - improving First day of symptoms: 06/21/2021 First positive test: 06/25/2021 Treatment held on admission due to O2 sats >= 94%, mildly less than this yesterday but appears to be better today therefore will continue to hold off steroids. (4) Depression: Plan: Chronic. Well controlled on medications -Continue Sertraline (5) Bipolar disorder: Plan: Chronic -Continue Lamictal Plan: VTE Prophylaxis - Lovenox 40mg SQ HS Diet - low fiber diet as above Disposition - COVID isolation, med/surg Admission and Anticipated Discharge Date Admission Date: June 25, 2021 Anticipated date of discharge: 06/28/21 Subjective Ongoing large amounts of diarrhea today. However she feels she is improving and her taste has come back. No abdominal pain, nausea or vomiting. Cough but no significant shortness of breath. Eating and drinking well. She straight caths due to incontinence but has noted dysuria with is new for her consistently in the last three days with associated mild suprapubic pain, no back pain or fevers. Review of Systems Review of Systems: All systems reviewed & are unremarkable except as noted in HPI & below Physical Exam Constitutional: WD/WN, vitals as above ENMT: external ear and nose normal, oropharynx normal Neck: trachea midline, no thyromegaly Respiratory: normal respiratory effort, lungs clear to auscultation Cardiovascular: RRR, no murmur, no edema Gastrointestinal (Abdomen): Inspection/Auscultation: normal bowel sounds Percussion/Palpation: abdomen soft; abdomen nontender Musculoskeletal: no cyanosis or clubbing, extremities motor strength 5/5 Skin: no rashes, warm and dry Neurologic: moves all extremities and awake; not confused Psychiatric: A+Ox3, euthymic affect Results & Data Results & Data ([facility]) Vital Signs (Past 12 Hours) Vital Signs Temp Pulse Resp BP Pulse Ox 06/27/21 15:03 36.8 C 76 18 135/76 96 06/27/21 08:06 36.8 C 65 18 111/61 95 PG Care Time/CCT Total # of Minutes Spent Total Time Spent with Patient: Total time spent is greater than 50% in coordination of care (as documented) at patient's floor/unit and/or counseling patient: Coding Level of Care Code 76027 Subseq Hosp Care Lvl 2 Diagnoses SBO (small bowel obstruction) K56.609 COVID U07.1 Depression F32.9 Bipolar disorder F31.9 UTI (urinary tract infection) N39.0
[2021-06-27] MEDS: ENOXAPARIN INJ 40 MG/0.4 ML SYR SQ SCH (21:01)
[2021-06-28] MEDS: guaiFENesin 600 MG TABCR PO SCH (07:49)
[2021-06-28] MEDS: SERTRALINE HCL 100 MG TABLET PO SCH (07:49)
[2021-06-28] MEDS: POTASSIUM CHLORIDE CRTAB 20 MEQ TABCR PO SCH (07:49)
[2021-06-28] MEDS: GABAPENTIN 600 MG TAB PO SCH (07:50)
[2021-06-28] MEDS: lamoTRIgine 100 MG TAB PO SCH (07:50)
[2021-06-28] MEDS: BENZONATATE 100 MG CAPSULE PO PRN ×2 (07:51→13:42)
--- NOTE | 2021-06-28 10:19 | XRay Report ---
KUB HISTORY: Small bowel obstruction. Covid positive. COMPARISON: KUB 06/26/2021. FINDINGS: Multiple gas-filled nondilated loops of large and small bowel seen throughout the abdomen. Therefore, no evidence for bowel obstruction. Surgical clips again noted within the pelvis. L2-L5 pos terior decompression and fusion again noted. Internal fixation of an old, healed right femoral fractu re. No renal calculi. No ureteral calculi. No pneumoperitoneum or pneumatosis. IMPRESSION: Multiple nondilated gas-filled loops of large and small bowel seen throughout the abdomen. This has i mproved in the interval and may represent a resolving partial small bowel obstruction/ileus. ACT 112: Negative or not required by law. Electronically signed by: Clyde Sampson M.D. 06/28/2021 10:17 AM
[2021-06-28] MEDS ORDERED: CEFDINIR 300 MG CAP PO STA (12:00)
--- NOTE | 2021-06-28 12:28 | Discharge Summary ---
Date of Service June 28, 2021 Admission HPI Per Admitting Provider 70yo female presenting with Covid-19 infection, possible SBO. Patient has been ill x 5 days with fatigue, body aches, dry cough. She had diarrhea 2 days ago. No BM since. No complaint of abdominal pain No oral intake x 1 day ER Course: Tylenol, Zofran, KCl 60mEq, NSS Principal Diagnosis Small Bowel Obstruction; COVID19 Discharge Exam PHYSICAL EXAM General Appearance: WDWN in NAD who is A&O x 3 HEENT: Head is normocephalic/atraumatic; Hearing grossly intact; Mucous membranes moist Neck: Supple; Trachea midline; Neg JVD; Neg lymphadenopathy Heart: RRR with no M/G/R Lungs: CTA in all lung ramirez bilaterally; Respirations unlabored; Neg accessory muscle use Abdomen: Soft, non-tender, non-distended; Positive BS x 4 quadrants Extremities: Neg cyanosis or edema Neurological: Speech clear; Gross motor/sensory function intact; Neg focal neurologic deficits Psychiatric: Appropriate mood/affect Skin: Normal Color; Warm/Dry Discharge Data Allergies Allergy/AdvReac Type Severity Reaction Status Date / Time No Known Drug Allergies Allergy Unknown NONE Verified 06/25/21 18:47 Consultations 06/25/21 20:19 ED Decision to Admit Stat Ordered Studies Abdomen/Pelvis CT 06/25/21 18:26 CT abd pelvis IV con only CLINICAL HISTORY: covid + N/V hx sbo COMPARISON STUDY: 09/21/2020 CT DOSE: TECHNIQUE: Standard CT of the Abdomen and Pelvis was performed with IV contrast. A dose lowering technique was utilized adhering to the principles of ALARA. Contrast Volume: Optiray 320, 118 ml. The patient did not receive oral contrast. FINDINGS: Abdominal cavity: There is no evidence for abdominal mass, adenopathy or ascites. Liver: There is homogeneous attenuation of the liver parenchyma. There is no evidence for enhancing mass lesion. Spleen: There is homogeneous attenuation of the splenic parenchyma. There is no enhancing mass lesion. Pancreas: There is homogeneous attenuation of the pancreatic parenchyma. There is no evidence for mass lesion or peripancreatic fluid collection. Gall Bladder: The gallbladder is distended with no evidence for intraluminal calculi, wall thickening or pericholecystic edema. Adrenal glands: The adrenal glands are normal in size and attenuation. There is no evidence for enhancing mass lesion. Kidneys: There is homogeneous attenuation of the renal parenchyma bilaterally. There is no evidence for renal calculus or hydronephrosis. There is no evidence for enhancing mass. Bowel: Compared to previous examination, there are mildly dilated, fluid-filled loops of small bowel again seen throughout the majority of the abdomen with decompression of the terminal ileum. Findings are again characteristic of partial small bowel obstruction, most likely related to adhesions. Fecal material seen within the colon. There are no inflammatory changes present. There is no evidence for free air. Bladder: The bladder is distended with no evidence for focal mass, calculus or diverticulum. : There is no evidence for pelvic mass or adenopathy. There is no evidence for pelvic ascites. Vasculature: There is no evidence for aneurysmal dilatation of the abdominal aorta. Osseous structures: There is no acute osseous pathology. Right hip replacement is again seen with mild imaging artifact present. Degenerative changes and previous internal fixation of the spine are seen well. IMPRESSION: 1. Compared to the previous study, there are mildly dilated, fluid-filled loops of small bowel proximally with decompression of the terminal ileum. The findings are again most characteristic of a partial small bowel obstruction, most likely related to adhesions. 2. No other evidence for acute intra-abdominal or pelvic abnormality. 3. Additional nonacute findings are delineated above. ACT 112: Negative or not required by law. Electronically signed by: Homero Schmid M.D. 06/25/2021 8:09 PM Chest CTA 06/25/21 18:26 CT angio chest PE protocol CLINICAL HISTORY: Covid positive. Shortness of breath. Evaluate for pulmonary embolus. COMPARISON STUDY: Portable chest from 06/25/2021 CT DOSE: 586.86 mGy.cm TECHNIQUE: CT Angio of the chest was performed.followed by image post processing with coronal, and sagittal MIP reformats. Contrast Volume: Optiray 320, 118 ml FINDINGS: Vasculature: There is homogeneous perfusion of the pulmonary vasculature bilaterally. No intraluminal filling defects or evidence for pulmonary embolus is seen. Airway: The airway is clear. No endobronchial lesion is identified. Lungs: Patchy groundglass opacities are present throughout both lungs, left greater than right characteristic of a viral type pneumonitis and Covid 19 pneumonia. The lungs are otherwise clear of confluent alveolar opacities, air bronchograms or pulmonary nodules. Pleura: There is no evidence for pleural effusion. There is no evidence for pneumothorax. Mediastinum: There is no evidence for pathologic adenopathy. The heart size is within normal limits. The thoracic aorta is within normal limits. There is no evidence for pericardial effusion. Osseous structures: There is no acute osseous pathology. Degenerative changes are seen within the spine. Impression: 1. No CTA evidence for pulmonary embolus. 2. Patchy groundglass opacities are present throughout both lungs, left greater than right characteristic of a viral type pneumonitis and Covid 19 pneumonia. ACT 112: Negative or not required by law. Electronically signed by: Homero Schmid M.D. 06/25/2021 8:02 PM Chest X-Ray 06/25/21 18:26 XR chest 1V portable CLINICAL HISTORY: SEPSIS. Fever and cough COMPARISON STUDY: 03/19/2018 TECHNIQUE: 1 view of the chest FINDINGS: Single frontal view of the chest demonstrates the cardiomediastinal silhouette to be within normal limits. There is patchy interstitial and alveolar opacities seen involving left lower mid to lower lung. The remainder the lungs are clear. There is no evidence for pleural effusion. There is no evidence for vascular congestion. There is no acute osseous pathology. IMPRESSION: Patchy interstitial and alveolar opacities involving the left mid to lower lobe suspicious for early pneumonia. The remainder of the lungs are clear. ACT 112: Negative or not required by law. Electronically signed by: Homero Schmid M.D. 06/25/2021 7:07 PM KUB X-Ray 06/26/21 08:00 KUB HISTORY: Possible bowel obstruction. Follow-up. COMPARISON: Abdomen and pelvis CT 06/25/2021. KUB 11/17/2019. FINDINGS: There are few borderline dilated gas-filled loops of large or small bowel seen within the abdomen. This could represent an ileus versus a partial small bowel obstruction. Posterior fusion hardware again noted within the lumbar spine. There is a right dynamic hip screw. Surgical clips within the deep pelvis. No renal calculi. No ureteral calculi. No pneumoperitoneum or pneumatosis. IMPRESSION: There are few borderline dilated gas-filled loops of large or small bowel seen within the abdomen. This could represent an ileus versus a partial small bowel obstruction. ACT 112: Negative or not required by law. Electronically signed by: Clyde Sampson M.D. 06/26/2021 10:28 AM KUB X-Ray 06/28/21 07:00 KUB HISTORY: Small bowel obstruction. Covid positive. COMPARISON: KUB 06/26/2021. FINDINGS: Multiple gas-filled nondilated loops of large and small bowel seen throughout the abdomen. Therefore, no evidence for bowel obstruction. Surgical clips again noted within the pelvis. L2-L5 posterior decompression and fusion again noted. Internal fixation of an old, healed right femoral fracture. No renal calculi. No ureteral calculi. No pneumoperitoneum or pneumatosis. IMPRESSION: Multiple nondilated gas-filled loops of large and small bowel seen throughout the abdomen. This has improved in the interval and may represent a resolving partial small bowel obstruction/ileus. ACT 112: Negative or not required by law. Electronically signed by: Clyde Sampson M.D. 06/28/2021 10:17 AM Hospital Course (1) SBO (small bowel obstruction): Patient with history of prior Bowel sounds present No abdominal pain or nausea Tolerating regular low fiber diet Stool PCR and c. diff negative - suspect diarrhea secondary to COVID (2) UTI (urinary tract infection): Associated with straight caths but new onset dysuria for the last 3 days with grossly positive UA - complete Abx course with Cefdinir (3) COVID: No hypoxia No indication for treatment at this time Continue to monitor Suspect cause of her headache, cough and diarrhea - improving First day of symptoms: 06/21/2021 First positive test: 06/25/2021 (4) Depression: Chronic. Well controlled on medications -Continue Sertraline (5) Bipolar disorder: Chronic -Continue Lamictal Total Time Total Time Spent Total Time Spent (In Minutes): Spent greater than 30 minutes preparing patient for discharge. This includes discussion with patient/family, assessment, intervention, medication reconciliation, and coordination of care. Discharge Plan Discharge Items Patient Disposition: Home - Self-Care Reason For Visit: COVID 19, SBO Discharge Diagnosis: Small Bowel Obstruction Activity: Resume your previous activity Non-emergency contact: Primary Care Provider Call non-emergency contact if: you have any medication questions, your symptoms worsen and you have a fever Follow-up/Referrals: Venkata Martinez MD [Primary Care Provider] - (PLEASE CALL YOUR PRIMARY CARE PROVIDER TO SCHEDULE A DISCHARGE FOLLOW-UP APPOINTMENT WITHIN 7-10 DAYS.) Diet: Low Fiber Addtl Attending Provider Instructions: Small Bowel Obstruction (RESOLVED)/Diarrhea (IMPROVING): - You were admitted for a small bowel obstruction that was seen on the CAT scan. The most common reason for this is usually due to adhesions or scar tissue in the abdomen that temporarily cause some motility issues. - Typically some bowel rest is all it takes for this to resolve on its own. - We do recommend you follow a low fiber diet for about 2 weeks. Please see the attached information about low fiber diets. After the 2 weeks you can start adding more fiber into the diet. - You had stool studies to check for infectious causes of the diarrhea but these were negative. Suspect this may be due to COVID COVID: - Thankfully you are doing well from the standpoint of COVID. Anticipate this cough can last a week or two. You have not required oxygen while in the hospital - You are around day 8 of symptoms and most cases of COVID seem to peak around day 10 and then gradually improve. Given how well you are doing with COVID, we would anticipate you will continue to do well. However, if you do start getting shortness of breath or feel like you are feeling worse it is worth getting checked out - No treatment is needed currently for COVID. Studies show that there is no benefit in utilizing steroids when not requiring oxygen. However, if your symptoms worsen or change you may then need to have additional treatment. - You can use medicine to help with the symptoms. Mucinex can help thin mucous and Tessalon perles to help with the cough - Currently, the recommendation is to isolate for 10 days from the onset of your symptoms. However, if you would get a fever then you should isolate until you no longer have a fever for 24 hours without needing to use things like Tylenol. Urinary Tract Infection: - You had a urinalysis completed that shows you have bacteria in the urine. - We will complete antibiotics for this. You had one dose today in the hospital and will need to take one dose today -- Take Cefdinir 300 mg once tonight on 06/28 then resume twice a day tomorrow on 06/29. You will take this until 07/01 Home Medications: - Please continue home medications as previously prescribed. We did not make adjustment to these Pending Studies at Discharge: No Stand-Alone Forms: My [facility] check24, Smoking Cessation Medications and DC Order Prescriptions: New cefdinir 300 mg capsule 300 mg PO BID Qty: 7 RF: 0 Continued lamotrigine 200 mg Tablet 200 mg PO QAM RF: 0 sertraline 100 mg Tablet 100 mg PO QAM RF: 0 cholecalciferol (vitamin D3) 1,000 unit Capsule 1,000 unit PO QAM RF: 0 vitamin B complex Tablet 1 tab PO QAM RF: 0 gabapentin 600 mg tablet 1,200 mg PO TID RF: 0 cyanocobalamin (vitamin B-12) 1,000 mcg/mL solution 1,000 mcg subcut UD RF: 0 multivitamin Tablet 1 tab PO DAILY RF: 0 Prolia 60 mg/mL Syringe 60 mg SUBCUT DIRECTED RF: 0 acetaminophen 500 mg tablet 1,000 mg PO TID PRN (Reason: Headache) RF: 0 lidocaine 5 % adhesive patch,medicated 1 patch transdermal DAILY PRN (Reason: Pain) RF: 0 Discharge Orders: Discharge Order (Routine); Ordered 06/28/21 Ordered By: Michelle Alfaro/Other Patient Handouts: Low-Fiber Diet Admission Data Admit Date/Time: 06/25/21 20:54 Attending Provider: Kunal Mack Admit Provider: Gladys Bustos Primary Care Provider: Venkata Martinez Other Providers: Gladys Bustos Other Interventions: Discharge Summary Assessment (RN) Last Done: 06/28/21 12:59 Supervising Physician Co-Signing Physician Notes Attending note: patient seen and examined with Michelle Carter PA-C. I agree with her discharge summary. I personally reviewed the labs and imaging findings. patient doing well, eating, moving her bowels, ready to go home - SBO: resolved, continue low fiber diet, stay active - COVID 19: no signs of pneumonia, breathing well on room air Coding Level of Care Code D/C DAY MANAGEMENT >30 MINS Diagnoses SBO (small bowel obstruction) K56.609 UTI (urinary tract infection) N39.0 COVID U07.1 Depression F32.9 Bipolar disorder F31.9
== END 2021-06-28 13:55 | disposition home or self-care (01) | DRG 388 ==
LOC: ED 18:09 → 2W 20:54 → SUATTDRO 20:54 → 2W 22:20